=== PATIENT | female | born 1970 | race Hispanic/Latino ===

== ENCOUNTER 2018-09-13 10:42 | Emergency (ER) | payer OTHER, MEDICAID, SELFPAY ==
[2018-09-13 10:52] VITALS: BP 97/65; PULSE 91; RESP 15; TEMP 36.7; O2SAT 100; BMI 32.1
--- NOTE | 2018-09-13 11:23 | ED.SKABFB ---
HPI - Skin/Abscess/Foreign Bdy General Chief complaint: Skin/Abscess/Foreign Body Stated complaint: Swollen red patch on stomach Time Seen by Provider: 09/13/18 10:54 Source: patient Mode of arrival: ambulatory Limitations: no limitations History of Present Illness HPI narrative: Patient is a 47-year-old female who presents with abscess on her abdomen. She had 1 abscess which she said drainage immediately afterwards 2nd abscess has popped up. Extremely sensitive she cannot wear clothing over it. She has some body aches. This 1 is not draining as in the for 2-3 days. MD complaint: abscess/boil Related Data Previous Rx's Medication Instructions Recorded mupirocin 1 applictn TOP TID #15 gram 09/13/18 sulfamethoxazole-trimethoprim 1 tab PO BID #14 tab 09/13/18 [Bactrim DS] Allergies Allergy/AdvReac Type Severity Reaction Status Date / Time chocolate flavor Allergy Unknown Verified 09/13/18 10:52 [CHOCOLATE FLAVOR] adhesive tape [ADHESIVE TAPE] AdvReac Intermediate Verified 09/13/18 10:52 latex [LATEX] AdvReac Intermediate Verified 09/13/18 10:52 Review of Systems Review of Systems All systems reviewed & are unremarkable except as noted in HPI and below Constitutional Reports body ache(s), Denies chills, Denies fatigue and Denies fever(s) Cardiovascular Denies chest pain, Denies irregular heart rhythm, Denies lightheadedness, Denies palpitations, Denies dyspnea, Denies dyspnea on exertion and Denies orthopnea Respiratory Denies cough, Denies dyspnea, Denies dyspnea on exertion and Denies wheezing Gastrointestinal Gastrointestinal: Denies abdominal pain, Denies change in bowel habits, Denies diarrhea, Denies nausea and Denies vomiting Musculoskeletal Denies back pain, Denies muscle weakness, Denies numbness and Denies tingling Integumentary/Breasts Reports as per HPI, Reports erythema, Reports skin pain and Reports sores Neurologic Denies numbness and Denies tingling Endocrine Denies fatigue and Denies palpitations Allergic/Immunologic Denies wheezing PFSH Medical History Frequent UTI (Chronic) Heavy menstrual period (Chronic) History of frequent headaches (Chronic) Surgical History History of removal of cyst (Resolved) Anesthesia (Inactive) Status post delivery (~1989) Status post tubal ligation (~1994) Family History Father Age: 79 Cancer Hypertension Mother Age: 75 Cancer Hypertension High cholesterol Grandfather Cancer Grandmother Heart disease Social History Smoking Status: Never smoker Exam Initial Vital Signs Initial Vital Signs: Vital Signs Temperature 98.1 F 09/13/18 10:52 Pulse Rate 91 H 09/13/18 10:52 Respiratory Rate 15 09/13/18 10:52 Blood Pressure 97/65 09/13/18 10:52 Pulse Oximetry 100 09/13/18 10:52 GENERAL: Well-appearing, well-nourished and in no acute distress. CARDIOVASCULAR: peripheral pulses in tact, cap refill <2 sec RESPIRATORY: No respiratory distress, speaks in full sentences without difficulty EXTREMITIES: Normal range of motion, no clubbing or edema. Neurovascularly intact NEUROLOGICAL: Cranial nerves II through XII grossly intact. Normal gait and speech. SKIN: Abdomen does have induration 4 cm x 4 cm with some surrounding erythema. No gross drainage. I did bedside ultrasound myself do not see pocket for abscess. Course Vital Signs - 8 hr 09/13/18 10:52 09/13/18 11:51 Temperature 98.1 F 98.5 F Pulse Rate 91 H 92 H Respiratory Rate 15 20 Blood Pressure 97/65 Blood Pressure [Left Arm] 149/85 H Pulse Oximetry 100 100 Discharge Plan Departure Patient Disposition: Home Clinical Impression: Abscess of skin or subcutaneous tissue Discharge Date/Time: 09/13/18 12:07 Interventions: ED Discharge Assessment Last Done: 09/13/18 12:03 Instructions: DI for Incision and Drainage of a Skin Abscess, DI for Skin Abscess Activity Restrictions/Additional Instructions: *You have been diagnosed with skin abscess *What to do: Warm compresses, avoid irritation cover with a dressing if closing is bothersome *Continue to take medications as directed: FAXED TO [facility] [place] Ibuprofen 800 mg every 8 hr as needed for pain or fever Bactrim 1 tab twice a day for 7 days Mupirocin ointment apply to affected area 3 times a day *Follow up with your primary care provider in 2-3 days *Return to ER if you should have significantly worsening redness, fever or any new, worsening or concerning symptoms Prescriptions: New sulfamethoxazole-trimethoprim [Bactrim DS] 800-160 mg tablet 1 tab PO BID Qty: 14 RF: 0 mupirocin 2 % ointment 1 applictn TOP TID Qty: 15 RF: 0 Referrals: [facility] [Provider Group] Nico Little MD [Non-Staff] - Art Burrell MD [Non-Staff] - Krissy Davila DO [Non-Staff] -
[2018-09-13 11:51] VITALS: BP 149/85; PULSE 92; RESP 20; TEMP 36.9; O2SAT 100
== END 2018-09-13 12:07 | disposition home or self-care (01) ==
PROVIDERS: Emergency Provider Emergency Medicine
DX: L02.211 Cutaneous abscess of abdominal wall (principal)
CPT/HCPCS: 99282

== ENCOUNTER 2018-09-16 15:52 | Emergency (ER) | payer OTHER, MEDICAID, SELFPAY ==
[2018-09-16 16:04] VITALS: BP 146/90; PULSE 78; RESP 18; TEMP 36.8; O2SAT 98
--- NOTE | 2018-09-16 17:43 | ED_ITS ---
HPI - Skin/Abscess/Foreign Bdy General Chief complaint: Skin/Abscess/Foreign Body Stated complaint: ABSESS ON STOMACH Time Seen by Provider: 09/16/18 16:26 Source: patient and family Mode of arrival: ambulatory Limitations: no limitations History of Present Illness HPI narrative: 47-year-old nonsmoker presents with her significant other for re- evaluation of a spontaneously draining abscess on her anterior abdomen. She has had low-grade subjective fever but denies any chills. She denies nausea, vomiting or diarrhea. She was seen a few days ago and had evaluation and was discharged Bactrim as there is no suggestion of abscess at that point time. Since then the erythema has largely improved but the area of infection has come to ahead and began spontaneously draining earlier today. She denies any deep abdominal pain nor trouble with bowel movements. MD complaint: abscess/boil Onset (ago): day(s) Tetanus up to date: yes Location: generalized (Lower Abdominal wall) Severity: mild Quality: burning and aching Pain Consistency: constant Relieving factors: none Associated symptoms: fever Treatments prior to arrival: attempted to drain pus at home and Benadryl Related Data Previous Rx's Medication Instructions Recorded mupirocin 1 applictn TOP TID #15 gram 09/13/18 sulfamethoxazole-trimethoprim 1 tab PO BID #14 tab 09/13/18 [Bactrim DS] hydrocodone-acetaminophen 1 tab PO Q4-6H PRN #14 tab 09/16/18 sulfamethoxazole-trimethoprim 1 tab PO BID 5 Days #10 tab 09/16/18 [Bactrim DS] Allergies Allergy/AdvReac Type Severity Reaction Status Date / Time chocolate flavor Allergy Unknown Verified 09/13/18 10:52 [CHOCOLATE FLAVOR] adhesive tape [ADHESIVE TAPE] AdvReac Intermediate Verified 09/13/18 10:52 latex [LATEX] AdvReac Intermediate Verified 09/13/18 10:52 Review of Systems Review of Systems All systems reviewed & are unremarkable except as noted in HPI and below Constitutional Denies chills, Denies fever(s), Denies lethargy and Denies weakness Eyes Denies change in vision, Denies eye discharge, Denies irritation and Denies loss of vision ENT Ears, Nose, Mouth, and Throat: Denies change in voice, Denies neck pain and Denies sore throat Cardiovascular Denies chest pain, Denies irregular heart rhythm, Denies lightheadedness, Denies palpitations, Denies dyspnea, Denies dyspnea on exertion and Denies orthopnea Respiratory Denies cough, Denies dyspnea, Denies dyspnea on exertion and Denies wheezing Gastrointestinal Gastrointestinal: Denies abdominal pain, Denies change in bowel habits, Denies diarrhea, Denies nausea and Denies vomiting Genitourinary Denies hematuria, Denies flank pain, Denies urinary incontinence and Denies urinary urgency Musculoskeletal Denies neck pain Integumentary/Breasts Denies pruritus, Reports erythema, Denies rash, Reports sores and Denies wounds Neurologic Denies confusion, Denies loss of vision and Denies weakness Psychiatric Denies anxiety, Denies confusion, Denies depression, Denies homicidal ideation and Denies suicidal ideation Endocrine Denies palpitations Hematologic/Lymphatic Denies easy bruising Allergic/Immunologic Denies wheezing [facility] Medical History Frequent UTI (Chronic) Heavy menstrual period (Chronic) History of frequent headaches (Chronic) Surgical History History of removal of cyst (Resolved) Anesthesia (Inactive) Status post delivery (~1989) Status post tubal ligation (~1994) Family History Father Age: 80 Cancer Hypertension Mother Age: 76 Cancer Hypertension High cholesterol Grandfather Cancer Grandmother Heart disease Social History Smoking Status: Never smoker Exam Narrative Exam Narrative: GEN: AOx3 and in mild distress, complaining of pain in her anterior abdominal wall EYES: Pupils are equal, round, and reactive to light and accommodation. Extraoccular muscles are intact bilaterally. There is no subconjunctival hemorrhage or exudate. CHEST: Lungs are clear to auscultation bilaterally and free of wheezes, rales, or rhonchi. Heart rate is regular rhythm, there are no murmurs, clicks, rubs, or gallops. There is no chest wall tenderness. ABD: Abdomen is soft and nontender other than abscess which is described below. There is no guarding or rebound. Bowel sounds are normal in all 4 quadrants. There is no mass or organomegaly. EXT: Full painless ROM of all extremities with no loss of sensation or strength. SKIN: 3 x 3 cm area of induration with a central area of fluctuance and spontaneous drainage. Bedside ultrasound notes 1 small centrally located pocket of fluid with debris suggestive of abscess. Initial Vital Signs Initial Vital Signs: Vital Signs Temperature 98.2 F 09/16/18 16:04 Pulse Rate 78 09/16/18 16:04 Respiratory Rate 18 09/16/18 16:04 Blood Pressure 146/90 H 09/16/18 16:04 Pulse Oximetry 98 09/16/18 16:04 Procedures Abscess I/D Site: abdomen Local Anesthetic: lidocaine 1% and with epi Amount of anesthesia used (mL): 6 Technique: incised with #11 blade Amount of fluid expressed (mL): 5 Irrigation: No Packing used?: none Course Orders Ordered: Discontinued Medications Hydrocodone Bitart/Acetaminophen ([place] 5/325) 2 tab PO NOW ONE Stop: 09/16/18 18:19 Last Admin: 09/16/18 18:19 Dose: 2 tab Vital Signs - 8 hr 09/16/18 16:04 09/16/18 18:08 Temperature 98.2 F Pulse Rate 78 79 Respiratory Rate 18 14 Blood Pressure 146/90 H Blood Pressure [Right Arm] 141/87 H Pulse Oximetry 98 100 Discharge Plan Departure Patient Disposition: Home Clinical Impression: Abdominal wall abscess Discharge Date/Time: 09/16/18 18:37 Interventions: ED Discharge Assessment Last Done: 09/16/18 18:37 Instructions: Incision and Drainage of a Skin Abscess Activity Restrictions/Additional Instructions: *You have been diagnosed with [ incision and drainage of an abdominal wall abscess] *What to do: *Take medications as directed: your prescription for Bactrim has been extended by 5 days and electronically transmitted [facility] in [place] at your request *Follow up with your primary care provider in 2-3 days, call for an appointment. Let them know you were seen in the Emergency Department and that we ask that you be seen in follow up *Return to ER if you should have any new, worsening or concerning symptoms] Prescriptions: New sulfamethoxazole-trimethoprim [Bactrim DS] 800-160 mg tablet 1 tab PO BID 5 Days Qty: 10 RF: 0 hydrocodone-acetaminophen 5-325 mg tablet 1 tab PO Q4-6H PRN (Reason: pain) Qty: 14 RF: 0 No Action sulfamethoxazole-trimethoprim [Bactrim DS] 800-160 mg tablet 1 tab PO BID Qty: 14 RF: 0 mupirocin 2 % ointment 1 applictn TOP TID Qty: 15 RF: 0 Referrals: Leeann Dewitt DO [Physician] - Mili Campos MD [Physician] - Shena Del Valle MD [Physician] -
[2018-09-16 18:08] VITALS: BP 141/87; PULSE 79; RESP 14; O2SAT 100
[2018-09-16] MEDS: HYDROCODONE/ACET 5/325 TABLET 2 TAB PO (18:19)
== END 2018-09-16 18:37 | disposition home or self-care (01) ==
PROVIDERS: Emergency Provider Emergency Medicine
DX: L02.211 Cutaneous abscess of abdominal wall (principal)
CPT/HCPCS: 10060; 99282; 99283

== ENCOUNTER 2019-03-11 10:57 | Emergency (ER) | payer OTHER, MEDICAID, SELFPAY ==
[2019-03-11 11:02] VITALS: BP 175/108; PULSE 88; RESP 22; TEMP 36.9; O2SAT 99
--- NOTE | 2019-03-11 11:21 | DI.RAD.S_ITS ---
PROCEDURE: XR CHEST 2V INDICATIONS: cough, hx asthma TECHNIQUE: 2 views of the chest were acquired. COMPARISON: [facility], CHEST 2 VIEW, 06/08/2017, 23:00. [facility], CHEST 1 VIEW, 01/14/2017, 7:35. FINDINGS: Surgical changes and devices: None. Lungs and pleura: Lungs are clear. No pleural effusions or pneumothorax. Mediastinum: Mediastinal contours are normal. Heart size is normal. Bones and chest wall: No suspicious bony abnormalities. Soft tissues appear unremarkable. IMPRESSION: Clear lungs. Dictated by: Andrae Strange M.D. on 03/11/2019 at 10:42 Approved by: Andrae Strange M.D. on 03/11/2019 at 10:43
[2019-03-11] MEDS: PROPARACAINE 0.5% OPHTH SOL 1 DROPS EYE-RIGHT (11:39)
[2019-03-11] MEDS: KETOROLAC 60 MG/2 ML VIAL IM (11:39)
--- NOTE | 2019-03-11 11:40 | ED.EYEPROB ---
HPI - Eye Problem <RAHUL Roberto - Last Filed: 03/11/19 19:42> General Chief complaint: Eye Problems Stated complaint: states rt eye pressure pain extending to nose Time Seen by Provider: 03/11/19 11:09 Source: patient Mode of arrival: ambulatory Limitations: no limitations History of Present Illness HPI Narrative: The patient is a 48-year-old female nonsmoker with history of bronchitis, who presents with a chief complaint of right eye pain as well as face pain. the patient states that she started with a cough several days ago, which accelerated into pain across both of her sinuses, right starting on left. She states that it hurts to open her eye. She denies any visual difficulty, denies any blurry vision double vision haloing of lights. She denies any fever, but states she felt warm yesterday. Denies any nausea or vomiting or diarrhea. She states her cough is nonproductive and persistent. She denies any abdominal pain. She does wear contacts and is concerned that she has a scratch on her eye. Related Data Previous Rx's Medication Instructions Recorded mupirocin 1 applictn TOP TID #15 gram 09/13/18 sulfamethoxazole-trimethoprim 1 tab PO BID #14 tab 09/13/18 [Bactrim DS] hydrocodone-acetaminophen 1 tab PO Q4-6H PRN #14 tab 09/16/18 albuterol sulfate 2 puff INHALATION Q4-6H PRN #8.5 03/11/19 gram ciprofloxacin HCl 0.3 % OPHTHALMIC (EYE) TID 14 Days 03/11/19 #3.5 gram Allergies Allergy/AdvReac Type Severity Reaction Status Date / Time chocolate flavor Allergy Unknown Verified 09/13/18 10:52 [CHOCOLATE FLAVOR] adhesive tape [ADHESIVE TAPE] AdvReac Intermediate Verified 09/13/18 10:52 latex [LATEX] AdvReac Intermediate Verified 09/13/18 10:52 Review of Systems <RAHUL Roberto - Last Filed: 03/11/19 19:42> Review of Systems GENERAL: Denies chills, fatigue, malaise, fever, sweats. HEENT: See HPI RESPIRATORY: Denies dyspnea, cough, wheezing, hemoptysis, sputum. CARDIOVASCULAR: Denies chest pain, palpitations, orthopnea, edema, GASTROINTESTINAL: Denies nausea, vomiting, abdominal pain, diarrhea, constipation, melena. : Denies dysuria, frequency, incontinence, hematuria, urinary retention. MUSCULOSKELETAL: denies weakness, joint pain, or bony pain SKIN: Denies rash, skin lesions, or other NEUROLOGIC: Denies weakness, headache, numbness, change in speech, confusion, seizures, incoordination. PSYCHIATRIC: No concerning psychosocial issues. 12 point review of systems is negative except for those stated above PFSH <RAHUL Roberto - Last Filed: 03/11/19 19:42> Medical History Frequent UTI (Chronic) Heavy menstrual period (Chronic) History of frequent headaches (Chronic) Surgical History History of removal of cyst (Resolved) Anesthesia (Inactive) Status post delivery (~1989) Status post tubal ligation (~1994) Family History Father Age: 80 Cancer Hypertension Mother Age: 76 Cancer Hypertension High cholesterol Grandfather Cancer Grandmother Heart disease Social History Smoking Status: Never smoker Family History Father Age: 80 Cancer Hypertension Mother Age: 76 Cancer Hypertension High cholesterol Grandfather Cancer Grandmother Heart disease Social History Smoking Status: Never smoker Exam <RAHUL Roberto - Last Filed: 03/11/19 19:42> Narrative Exam Narrative: GENERAL: This is a well-nourished, well-developed patient, appears uncomfortable HEAD: Atraumatic. Normocephalic. No temporal or scalp tenderness. EYES: Pupils equal round and reactive. Extraocular motions intact. No scleral icterus. Right eye injection with tearing noted. Erythema noted. No erythema extending from right eye. Wilfred-Pen pressure on right eye 25, 24 on left eye. Small corneal abrasion noted on fluorescein exam. ENT: Nose without bleeding, purulent drainage or septal hematoma. Throat without erythema, tonsillar hypertrophy or exudate. Uvula midline. Airway patent. NECK: Trachea midline. No JVD or lymphadenopathy. Supple, nontender, no meningeal signs. CARDIOVASCULAR: Regular rate and rhythm RESPIRATORY: Clear to auscultation. Breath sounds equal bilaterally. No wheezes, rales, or rhonchi. Dry cough on exam GASTROINTESTINAL: Abdomen soft, non-tender, nondistended. No hepato-splenomegaly, or palpable masses. No guarding. EXTREMITIES: No clubbing, cyanosis, or edema. No joint tenderness, effusion, or edema noted. BACK: Nontender without deformity or crepitance. No flank tenderness. NEURO: AOx3. SKIN: No rash or erythema. Initial Vital Signs Initial Vital Signs: Vital Signs Temperature 98.5 F 03/11/19 11:02 Pulse Rate 88 03/11/19 11:02 Respiratory Rate 22 03/11/19 11:02 Blood Pressure 175/108 H 03/11/19 11:02 Pulse Oximetry 99 03/11/19 11:02 <Jayant Cooper DO - Last Filed: 03/12/19 08:24> Initial Vital Signs Initial Vital Signs: Vital Signs Temperature 98.5 F 03/11/19 11:02 Pulse Rate 88 03/11/19 11:02 Respiratory Rate 22 03/11/19 11:02 Blood Pressure 175/108 H 03/11/19 11:02 Pulse Oximetry 99 03/11/19 11:02 Course <JEFFREY Roberto-CANDACE - Last Filed: 03/11/19 19:42> Orders Ordered: Discontinued Medications Ketorolac Tromethamine (Toradol) 60 mg IM NOW ONE Stop: 03/11/19 11:22 Last Admin: 03/11/19 11:39 Dose: 60 mg Proparacaine HCl (Parcaine 0.5% Ophth Lis) 1 drops EYE-RIGHT NOW ONE Stop: 03/11/19 11:22 Last Admin: 03/11/19 11:39 Dose: 1 drop Vital Signs - 8 hr 03/11/19 13:04 Pulse Rate 75 Respiratory Rate 18 Blood Pressure 159/79 H Pulse Oximetry 98 <Jayant Cooper DO - Last Filed: 03/12/19 08:24> Orders Ordered: Discontinued Medications Ketorolac Tromethamine (Toradol) 60 mg IM NOW ONE Stop: 03/11/19 11:22 Last Admin: 03/11/19 11:39 Dose: 60 mg Proparacaine HCl (Parcaine 0.5% Ophth Lis) 1 drops EYE-RIGHT NOW ONE Stop: 03/11/19 11:22 Last Admin: 03/11/19 11:39 Dose: 1 drop Vital Signs - 8 hr 03/11/19 13:04 Pulse Rate 75 Respiratory Rate 18 Blood Pressure 159/79 H Pulse Oximetry 98 MDM - Eye Problem <RAHUL Roberto - Last Filed: 03/11/19 19:42> Imaging Data Chest x-ray: Radiologist's impression: [address] [address] XRay Report Signed Patient: Joycelyn Dela Cruz JAR#: [id number] : 1970Acct:[id number] Age/Sex: 48 / FDate of Service: 03/11/19 Loc: ED Accession Number: [id number] Procedure: XR chest 2V Ordering Provider: Sola Solorzano PROCEDURE: XR CHEST 2V INDICATIONS: cough, hx asthma TECHNIQUE: 2 views of the chest were acquired. COMPARISON: [facility], CHEST 2 VIEW, 06/08/2017, 23:00. [facility], CHEST 1 VIEW, 01/14/2017, 7:35. FINDINGS: Surgical changes and devices: None. Lungs and pleura: Lungs are clear. No pleural effusions or pneumothorax. Mediastinum: Mediastinal contours are normal. Heart size is normal. Bones and chest wall: No suspicious bony abnormalities. Soft tissues appear unremarkable. IMPRESSION: Clear lungs. Dictated by: Andrae Strange M.D. on 03/11/2019 at 10:42 Approved by: Andrae Strange M.D. on 03/11/2019 at 10:43 [facility] Narrative Medical decision making narrative: The patient is a 40-year-old female who presents with chief complaint of right eye pain and drainage. She also complains of a cough and is a negative chest x-ray. Her visual acuity is within normal limits. Her pressure is within normal limits. Given the corneal abrasion on her exam, I will treat her with Cipro. Encouraged to follow up with her PCP as well as her eye provider. Patient has no questions or concerns upon discharge. Discussed being re-evaluated immediately if notice taking any visual deficits. No questions or concerns upon discharge. Discharge Plan Departure Patient Disposition: Home Clinical Impression: Corneal abrasion Qualifiers: Encounter type: initial encounter Laterality: right Qualified Code(s): S05.01XA - Injury of conjunctiva and corneal abrasion without foreign body, right eye, initial encounter Discharge Date/Time: 03/11/19 13:04 Interventions: ED Discharge Assessment Last Done: 03/11/19 13:04 Instructions: DI for Corneal Abrasion Activity Restrictions/Additional Instructions: Your vision is good today. Please monitor this and be evaluated if you have any concerns about your vision. Given the abrasion on your exam, I am giving a prescription for an antibiotic. Please follow up with primary care provider as well as your eye provider. Please come back to emergency department for any acute concerns such as visual deficit etc. Please continue [id number] medications as needed and able. Please avoid ibuprofen for the next 8 hours as we gave you IM Toradol Prescriptions: New ciprofloxacin HCl 0.3 % ointment 0.3 % ophthalmic (eye) TID 14 Days Qty: 3.5 RF: 0 albuterol sulfate 90 mcg/actuation HFA aerosol inhaler 2 puff INHALATION Q4-6H PRN (Reason: shortness of breath or wheezing) Qty: 8.5 RF: 0 No Action hydrocodone-acetaminophen 5-325 mg tablet 1 tab PO Q4-6H PRN (Reason: pain) Qty: 14 RF: 0 sulfamethoxazole-trimethoprim [Bactrim DS] 800-160 mg tablet 1 tab PO BID Qty: 14 RF: 0 mupirocin 2 % ointment 1 applictn TOP TID Qty: 15 RF: 0 <Jayant Cooper, DO - Last Filed: 03/12/19 08:24> Cosign ED Attending Parker Attestation: I was immediately available in the department for consultation. Documentation has been reviewed. I agree with assessment and plan.
--- NOTE | 2019-03-11 11:44 | ED_ITS ---
HPI - Eye Problem <RAHLU Roberto - Last Filed: 03/11/19 19:42> General Chief complaint: Eye Problems Stated complaint: states rt eye pressure pain extending to nose Time Seen by Provider: 03/11/19 11:09 Source: patient Mode of arrival: ambulatory Limitations: no limitations History of Present Illness HPI Narrative: The patient is a 48-year-old female nonsmoker with history of bronchitis, who presents with a chief complaint of right eye pain as well as face pain. the patient states that she started with a cough several days ago, which accelerated into pain across both of her sinuses, right starting on left. She states that it hurts to open her eye. She denies any visual difficulty, denies any blurry vision double vision haloing of lights. She denies any fever, but states she felt warm yesterday. Denies any nausea or vomiting or diarrhea. She states her cough is nonproductive and persistent. She denies any abdominal pain. She does wear contacts and is concerned that she has a scratch on her eye. Related Data Previous Rx's Medication Instructions Recorded mupirocin 1 applictn TOP TID #15 gram 09/13/18 sulfamethoxazole-trimethoprim 1 tab PO BID #14 tab 09/13/18 [Bactrim DS] hydrocodone-acetaminophen 1 tab PO Q4-6H PRN #14 tab 09/16/18 albuterol sulfate 2 puff INHALATION Q4-6H PRN #8.5 03/11/19 gram ciprofloxacin HCl 0.3 % OPHTHALMIC (EYE) TID 14 Days 03/11/19 #3.5 gram Allergies Allergy/AdvReac Type Severity Reaction Status Date / Time chocolate flavor Allergy Unknown Verified 09/13/18 10:52 [CHOCOLATE FLAVOR] adhesive tape [ADHESIVE TAPE] AdvReac Intermediate Verified 09/13/18 10:52 latex [LATEX] AdvReac Intermediate Verified 09/13/18 10:52 Review of Systems <RAHUL Roberto - Last Filed: 03/11/19 19:42> Review of Systems GENERAL: Denies chills, fatigue, malaise, fever, sweats. HEENT: See HPI RESPIRATORY: Denies dyspnea, cough, wheezing, hemoptysis, sputum. CARDIOVASCULAR: Denies chest pain, palpitations, orthopnea, edema, GASTROINTESTINAL: Denies nausea, vomiting, abdominal pain, diarrhea, constipation, melena. : Denies dysuria, frequency, incontinence, hematuria, urinary retention. MUSCULOSKELETAL: denies weakness, joint pain, or bony pain SKIN: Denies rash, skin lesions, or other NEUROLOGIC: Denies weakness, headache, numbness, change in speech, confusion, seizures, incoordination. PSYCHIATRIC: No concerning psychosocial issues. 12 point review of systems is negative except for those stated above PFSH <RAHUL Roberto - Last Filed: 03/11/19 19:42> Medical History Frequent UTI (Chronic) Heavy menstrual period (Chronic) History of frequent headaches (Chronic) Surgical History History of removal of cyst (Resolved) Anesthesia (Inactive) Status post delivery (~1989) Status post tubal ligation (~1994) Family History Father Age: 80 Cancer Hypertension Mother Age: 76 Cancer Hypertension High cholesterol Grandfather Cancer Grandmother Heart disease Social History Smoking Status: Never smoker Family History Father Age: 80 Cancer Hypertension Mother Age: 76 Cancer Hypertension High cholesterol Grandfather Cancer Grandmother Heart disease Social History Smoking Status: Never smoker Exam <RAHUL Roberto - Last Filed: 03/11/19 19:42> Narrative Exam Narrative: GENERAL: This is a well-nourished, well-developed patient, appears uncomfortable HEAD: Atraumatic. Normocephalic. No temporal or scalp tenderness. EYES: Pupils equal round and reactive. Extraocular motions intact. No scleral icterus. Right eye injection with tearing noted. Erythema noted. No erythema extending from right eye. Wilfred-Pen pressure on right eye 25, 24 on left eye. Small corneal abrasion noted on fluorescein exam. ENT: Nose without bleeding, purulent drainage or septal hematoma. Throat without erythema, tonsillar hypertrophy or exudate. Uvula midline. Airway patent. NECK: Trachea midline. No JVD or lymphadenopathy. Supple, nontender, no meningeal signs. CARDIOVASCULAR: Regular rate and rhythm RESPIRATORY: Clear to auscultation. Breath sounds equal bilaterally. No wheezes, rales, or rhonchi. Dry cough on exam GASTROINTESTINAL: Abdomen soft, non-tender, nondistended. No hepato- splenomegaly, or palpable masses. No guarding. EXTREMITIES: No clubbing, cyanosis, or edema. No joint tenderness, effusion, or edema noted. BACK: Nontender without deformity or crepitance. No flank tenderness. NEURO: AOx3. SKIN: No rash or erythema. Initial Vital Signs Initial Vital Signs: Vital Signs Temperature 98.5 F 03/11/19 11:02 Pulse Rate 88 03/11/19 11:02 Respiratory Rate 22 03/11/19 11:02 Blood Pressure 175/108 H 03/11/19 11:02 Pulse Oximetry 99 03/11/19 11:02 <Jayant Cooper DO - Last Filed: 03/12/19 08:24> Initial Vital Signs Initial Vital Signs: Vital Signs Temperature 98.5 F 03/11/19 11:02 Pulse Rate 88 03/11/19 11:02 Respiratory Rate 22 03/11/19 11:02 Blood Pressure 175/108 H 03/11/19 11:02 Pulse Oximetry 99 03/11/19 11:02 Course <JEFFREY Roberto-CANDACE - Last Filed: 03/11/19 19:42> Orders Ordered: Discontinued Medications Ketorolac Tromethamine (Toradol) 60 mg IM NOW ONE Stop: 03/11/19 11:22 Last Admin: 03/11/19 11:39 Dose: 60 mg Proparacaine HCl (Parcaine 0.5% Ophth Lis) 1 drops EYE-RIGHT NOW ONE Stop: 03/11/19 11:22 Last Admin: 03/11/19 11:39 Dose: 1 drop Vital Signs - 8 hr 03/11/19 13:04 Pulse Rate 75 Respiratory Rate 18 Blood Pressure 159/79 H Pulse Oximetry 98 <Jayant Cooper DO - Last Filed: 03/12/19 08:24> Orders Ordered: Discontinued Medications Ketorolac Tromethamine (Toradol) 60 mg IM NOW ONE Stop: 03/11/19 11:22 Last Admin: 03/11/19 11:39 Dose: 60 mg Proparacaine HCl (Parcaine 0.5% Ophth Lis) 1 drops EYE-RIGHT NOW ONE Stop: 03/11/19 11:22 Last Admin: 03/11/19 11:39 Dose: 1 drop Vital Signs - 8 hr 03/11/19 13:04 Pulse Rate 75 Respiratory Rate 18 Blood Pressure 159/79 H Pulse Oximetry 98 MDM - Eye Problem <RAHUL Roberto - Last Filed: 03/11/19 19:42> Imaging Data Chest x-ray: Radiologist's impression: [address] [address] XRay Report Signed Patient: Joycelyn Dela Cruz JAR#: [id number] : 1970Acct:[id number] Age/Sex: 48 / FDate of Service: 03/11/19 Loc: ED Accession Number: [id number] Procedure: XR chest 2V Ordering Provider: Sola Solorzano PROCEDURE: XR CHEST 2V INDICATIONS: cough, hx asthma TECHNIQUE: 2 views of the chest were acquired. COMPARISON: [facility], CHEST 2 VIEW, 06/08/2017, 23:00. [facility], CHEST 1 VIEW, 01/14/2017, 7:35. FINDINGS: Surgical changes and devices: None. Lungs and pleura: Lungs are clear. No pleural effusions or pneumothorax. Mediastinum: Mediastinal contours are normal. Heart size is normal. Bones and chest wall: No suspicious bony abnormalities. Soft tissues appear unremarkable. IMPRESSION: Clear lungs. Dictated by: Andrae Strange M.D. on 03/11/2019 at 10:42 Approved by: Andrae Strange M.D. on 03/11/2019 at 10:43 [facility] Narrative Medical decision making narrative: The patient is a 40-year-old female who presents with chief complaint of right eye pain and drainage. She also complains of a cough and is a negative chest x-ray. Her visual acuity is within normal limits. Her pressure is within normal limits. Given the corneal abrasion on her exam, I will treat her with Cipro. Encouraged to follow up with her PCP as well as her eye provider. Patient has no questions or concerns upon discharge. Discussed being re-evaluated immediately if notice taking any visual deficits. No questions or concerns upon discharge. Discharge Plan Departure Patient Disposition: Home Clinical Impression: Corneal abrasion Qualifiers: Encounter type: initial encounter Laterality: right Qualified Code(s): S05.01XA - Injury of conjunctiva and corneal abrasion without foreign body, right eye, initial encounter Discharge Date/Time: 03/11/19 13:04 Interventions: ED Discharge Assessment Last Done: 03/11/19 13:04 Instructions: DI for Corneal Abrasion Activity Restrictions/Additional Instructions: Your vision is good today. Please monitor this and be evaluated if you have any concerns about your vision. Given the abrasion on your exam, I am giving a prescription for an antibiotic. Please follow up with primary care provider as well as your eye provider. Please come back to emergency department for any acute concerns such as visual deficit etc. Please continue [id number] medications as needed and able. Please avoid ibuprofen for the next 8 hours as we gave you IM Toradol Prescriptions: New ciprofloxacin HCl 0.3 % ointment 0.3 % ophthalmic (eye) TID 14 Days Qty: 3.5 RF: 0 albuterol sulfate 90 mcg/actuation HFA aerosol inhaler 2 puff INHALATION Q4-6H PRN (Reason: shortness of breath or wheezing) Qty: 8.5 RF: 0 No Action hydrocodone-acetaminophen 5-325 mg tablet 1 tab PO Q4-6H PRN (Reason: pain) Qty: 14 RF: 0 sulfamethoxazole-trimethoprim [Bactrim DS] 800-160 mg tablet 1 tab PO BID Qty: 14 RF: 0 mupirocin 2 % ointment 1 applictn TOP TID Qty: 15 RF: 0 <Jayant Cooper, DO - Last Filed: 03/12/19 08:24> Cosign ED Attending Parker Attestation: I was immediately available in the department for consultation. Documentation has been reviewed. I agree with assessment and plan.
[2019-03-11 13:04] VITALS: BP 159/79; PULSE 75; RESP 18; O2SAT 98
== END 2019-03-11 13:04 | disposition home or self-care (01) ==
PROVIDERS: Emergency Provider Nurse Practitioner Family
DX: S05.01XA Injury of conjunctiva and corneal abrasion without foreign body, right eye, initial encounter (principal)
CPT/HCPCS: 71046; 96372; 99283; J1885

== ENCOUNTER 2019-12-07 23:40 | Emergency (ER) | payer OTHER, MEDICAID, SELFPAY ==
[2019-12-07 23:43] VITALS: BP 160/108; PULSE 80; RESP 18; TEMP 36.4; O2SAT 98
--- NOTE | 2019-12-08 00:11 | ED_ITS ---
HPI - URI/Sore Throat General Chief Complaint: Upper Respiratory Symptoms Stated Complaint: both ears plugged/sore throat Time Seen by Provider: 12/07/19 23:41 Source: patient Mode of arrival: Ambulatory Limitations: no limitations History of Present Illness HPI Narrative: 48-year-old female nonsmoker with noncontributory medical history presents with a chief complaint runny nose, nasal congestion, sore throat and bilateral ear pain with some sneezing for the past few days. She has not taken much in the way of medications. She denies any fever chills nor any cough productive of sputum. She denies chest pain or shortness of breath. She denies any nausea, vomiting or diarrhea. Related Data Previous Rx's Medication Instructions Recorded mupirocin 1 applictn TOP TID #15 gram 09/13/18 sulfamethoxazole-trimethoprim 1 tab PO BID #14 tab 09/13/18 [Bactrim DS] hydrocodone-acetaminophen 1 tab PO Q4-6H PRN #14 tab 09/16/18 albuterol sulfate 2 puff INHALATION Q4-6H PRN #8.5 03/11/19 gram Allergies Allergy/AdvReac Type Severity Reaction Status Date / Time chocolate flavor Allergy Unknown Verified 09/13/18 10:52 [CHOCOLATE FLAVOR] adhesive tape [ADHESIVE TAPE] AdvReac Intermediate Verified 09/13/18 10:52 latex [LATEX] AdvReac Intermediate Verified 09/13/18 10:52 Review of Systems Constitutional Constitutional: Denies chills, Denies fatigue, Denies fever(s), Denies frequent falls, Denies lethargy and Denies weakness Eyes Eyes: Denies change in vision, Denies eye discharge, Denies irritation and Denies loss of vision ENT Ears, Nose, Mouth, and Throat: Denies change in voice, Denies dizziness, Reports otalgia, Reports nasal congestion, Denies neck pain, Reports sore throat and Denies throat swelling Cardiovascular Cardiovascular: Denies chest pain, Denies irregular heart rhythm, Denies lightheadedness, Denies palpitations, Denies dyspnea, Denies dyspnea on exertion and Denies orthopnea Respiratory Respiratory: Reports cough, Denies dyspnea, Denies dyspnea on exertion and Denies wheezing Gastrointestinal Gastrointestinal: Denies abdominal pain, Denies change in bowel habits, Denies diarrhea, Denies nausea and Denies vomiting Genitourinary Genitourinary: Denies hematuria, Denies flank pain, Denies urinary incontinence and Denies urinary urgency Musculoskeletal Musculoskeletal: Denies back pain, Denies muscle weakness, Denies neck pain, Denies numbness and Denies tingling Integumentary/Breasts Skin/Breast: Denies pruritus, Denies erythema, Denies rash and Denies wounds Neurologic Neurologic: Denies behavioral changes, Denies confusion, Denies dizziness, Denies frequent falls, Denies loss of vision, Denies numbness, Denies tingling and Denies weakness Psychiatric Psychiatric: Denies anxiety, Denies behavioral changes, Denies confusion, Denies depression, Denies homicidal ideation and Denies suicidal ideation Endocrine Endocrine: Denies fatigue, Denies flushing and Denies palpitations Hematologic/Lymphatic Hematologic/Lymphatic: Denies easy bruising Allergic/Immunologic Allergic/Immunologic: Denies urticaria, Denies throat swelling and Denies wheezing Patient History Medical History Frequent UTI (Chronic) Heavy menstrual period (Chronic) History of frequent headaches (Chronic) Surgical History Anesthesia (Inactive) History of removal of cyst (Resolved) Status post delivery (~1989) Status post tubal ligation (~1994) Family History Father Age: 81 Cancer Hypertension Mother Age: 77 Cancer Hypertension High cholesterol Grandfather Cancer Grandmother Heart disease Social History Smoking Status: Never smoker Smoking Status: Never smoker Substance Use Type: does not use Exam Narrative Exam Narrative: GENERAL: [48] year old patient appears stated age. Well- nourished, well-developed patient, in mild distress. HEAD: Atraumatic. Normocephalic. EYES: Pupils equal round and reactive. Extraocular motions intact. No scleral icterus. No injection or drainage. ENT: Clear nasal drainage bilaterally. Throat without erythema, tonsillar hypertrophy or exudate though there is some postnasal drip. Airway patent. NECK: Trachea midline. Non tender CARDIOVASCULAR: Regular rate and rhythm without murmurs, gallops, or rubs. RESPIRATORY: Clear to auscultation. Breath sounds equal bilaterally. No wheezes, rales, or rhonchi. GASTROINTESTINAL: Abdomen soft, non-tender, nondistended. EXTREMITIES: No edema or joint tenderness. BACK: Nontender without deformity or crepitance. No flank tenderness. NEURO: AOx3. SKIN: No rash or erythema of visible areas Initial Vital Signs Initial Vital Signs: Vital Signs Temperature 97.6 F 12/07/19 23:43 Pulse Rate 80 12/07/19 23:43 Respiratory Rate 18 12/07/19 23:43 Blood Pressure 160/108 H 12/07/19 23:43 Pulse Oximetry 98 12/07/19 23:43 Course Orders Ordered: ED Orders 12/08/19 00:00 Influenza A & B (PCR) Stat Vital Signs Vital signs: Vital Signs - 8 hr 12/07/19 23:43 12/08/19 01:02 Temperature 97.6 F Pulse Rate 80 88 Respiratory Rate 18 15 Blood Pressure 160/108 H 155/104 H Pulse Oximetry 98 99 MDM - URI/Sore Throat Lab Data Labs: Lab Results 12/08/19 12/08/19 Range/Units 00:00 00:00 Influenza A (RT-PCR) Flu a negative (NEGATIVE) Influenza B (RT-PCR) Flu b negative (NEGATIVE) Group A Strep (PCR) Cancelled Point of Care Testing Rapid Strep A Negative Discharge Plan Departure Patient Disposition: Home Clinical Impression: URI (upper respiratory infection) Qualifiers: URI type: unspecified viral URI Qualified Code(s): J06.9 - Acute upper respiratory infection, unspecified Discharge Date/Time: 12/08/19 01:03 Instructions: DI for Viral Upper Respiratory Infection -- Adult Activity Restrictions/Additional Instructions: *You have been diagnosed with [acute viral upper respiratory infection] *What to do: *Take medications as directed: [id number] medications with antihistamines and decongestants *Follow up with your primary care provider in 2-3 days, call for an appointment. Let them know you were seen in the Emergency Department and that we ask that you be seen in follow up *Return to ER if you should have any new, worsening or concerning symptoms Prescriptions: No Action hydrocodone-acetaminophen 5-325 mg tablet 1 tab PO Q4-6H PRN (Reason: pain) Qty: 14 RF: 0 sulfamethoxazole-trimethoprim [Bactrim DS] 800-160 mg tablet 1 tab PO BID Qty: 14 RF: 0 mupirocin 2 % ointment 1 applictn TOP TID Qty: 15 RF: 0 albuterol sulfate 90 mcg/actuation HFA aerosol inhaler 2 puff INHALATION Q4-6H PRN (Reason: shortness of breath or wheezing) Qty: 8.5 RF: 0
[2019-12-08 00:39] LABS: Influenza A - CEPHEID Flu A NEGATIVE (NEGATIVE); Influenza B - CEPHEID Flu B NEGATIVE (NEGATIVE)
[2019-12-08 01:02] VITALS: BP 155/104; PULSE 88; RESP 15; O2SAT 99
== END 2019-12-08 01:03 | disposition home or self-care (01) ==
PROVIDERS: Emergency Provider Emergency Medicine
DX: J06.9 Acute upper respiratory infection, unspecified (principal)
CPT/HCPCS: 87502; 87880; 99281; 99282

== ENCOUNTER 2021-02-06 12:34 | Emergency (ER) | payer OTHER, MEDICAID, SELFPAY ==
[2021-02-06 12:36] VITALS: BP 200/99; PULSE 87; RESP 15; TEMP 36.8; O2SAT 99; BMI 34.0
[2021-02-06 14:34] VITALS: BP 180/96; PULSE 77; PULSE 79; RESP 16; O2SAT 99
--- NOTE | 2021-02-06 14:35 | PC.NURSE ---
Pt states she has been stressed out for the past week and been having a sinus headache. Pt took her BP today and it was 200/143 at home. No hx of HTN. No CP or SOB
--- NOTE | 2021-02-06 14:43 | ED.GENADULT ---
HPI - General Adult General Chief complaint: Hypertension Stated complaint: high blood pressure Time Seen by Provider: 02/06/21 14:18 Source: patient Mode of arrival: Ambulatory Limitations: no limitations History of Present Illness HPI narrative: Patient is a 50-year-old female without diagnosis of hypertension who is here for evaluation 1 month of pressure in her head and pressure behind her eyes and nausea and some abdominal discomfort. She states that the symptoms have been consistent over the past month and earlier today she took her blood pressure because of the symptoms and it was elevated. 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 who told her to come to the emergency department for evaluation Related Data Previous Rx's Medication Instructions Recorded mupirocin 1 applictn TOP TID #15 gram 09/13/18 sulfamethoxazole-trimethoprim 1 tab PO BID #14 tab 09/13/18 [Bactrim DS] hydrocodone-acetaminophen 1 tab PO Q4-6H PRN #14 tab 09/16/18 albuterol sulfate 2 puff INHALATION Q4-6H PRN #8.5 03/11/19 gram lisinopril 10 mg PO DAILY #30 tab 02/06/21 Allergies Allergy/AdvReac Type Severity Reaction Status Date / Time chocolate flavor Allergy Unknown Verified 02/06/21 12:37 [CHOCOLATE FLAVOR] adhesive tape [ADHESIVE TAPE] AdvReac Intermediate Verified 02/06/21 12:37 latex [LATEX] AdvReac Intermediate Verified 02/06/21 12:37 Review of Systems Constitutional Constitutional: Denies headache(s) Eyes Eyes: Denies change in vision Comments: Pain behind his ENT Ears, Nose, Mouth, and Throat: Denies headache(s) and Denies sore throat Cardiovascular Cardiovascular: Reports dyspnea Respiratory Respiratory: Reports dyspnea Gastrointestinal Gastrointestinal: Denies change in bowel habits Musculoskeletal Comments: Lower extremity swelling Integumentary/Breasts Skin/Breast: Denies rash Neurologic Neurologic: Denies headache(s) Patient History Medical History Frequent UTI Heavy menstrual period History of frequent headaches Surgical History Anesthesia History of removal of cyst Status post delivery (~1989) Status post tubal ligation (~1994) Family History Father Age: 82 Cancer Hypertension Mother Age: 78 Cancer Hypertension High cholesterol Grandfather Cancer Grandmother Heart disease Social History Smoking Status: Never smoker Smoking Status: Never smoker alcohol intake frequency: holidays/special occasions only Substance Use Type: does not use Exam Initial Vital Signs Initial Vital Signs: Vital Signs Temperature 98.2 F 02/06/21 12:36 Pulse Rate 87 02/06/21 12:36 Respiratory Rate 15 02/06/21 12:36 Blood Pressure 200/99 H 02/06/21 12:36 Pulse Oximetry 99 02/06/21 12:36 Const General: cooperative and comfortable Limitations: mental status not altered HENMT Head: normal to inspection and normocephalic Nose: external nose normal Eyes General: appearance normal, both eyes and all related structures Resp Effort & Inspection: normal respiratory effort Auscultation: clear to auscultation bilaterally Cardio Rate: regular rate Rhythm: regular rhythm GI Inspection: non-distended Palpation: soft Skin Lesions: no lesions Rashes: no rashes Neuro General: patient alert, patient awake and patient oriented x3 Cranial Nerves: CN's II-XI intact bilaterally Cognition: normal cognition Speech: speech normal Extrem General: normal to inspection and capillary refill normal Psych Appearance: grossly normal and well kempt Course Orders Ordered: ED Orders 02/06/21 12:46 EKG-12 Lead Stat Discontinued Medications Lisinopril (Lisinopril 10 Mg Tablet) 10 mg PO NOW ONE Stop: 02/06/21 14:46 Last Admin: 02/06/21 14:52 Dose: 10 mg Documented by: FRANCY Vital Signs Vital signs: Vital Signs - 8 hr 02/06/21 12:36 02/06/21 14:34 Temperature 98.2 F Pulse Rate 87 79 Respiratory Rate 15 16 Blood Pressure 200/99 H 180/96 H Pulse Oximetry 99 99 Medical Decision Making ECG Data Attestation: I personally reviewed and interpreted this ECG as follows: Prior ECG tracings: not available for review Interpretation: Sinus rhythm Ventricular rate is 76 LVH Normal QRS Normal QTC No ST T wave changes MDM Narrative Medical decision making narrative: I have low suspicion for ACS. Unsure whether not the symptoms that she has been having for the past month a related to her elevated blood pressure or if her elevated blood pressures related to the symptoms. She is hypertensive here and I suspect that at baseline she is hypertensive so will start her on low-dose lisinopril. Low suspicion for stroke/TIA. I feel we can hold on radiologic studies. She was given instructions on how to take her blood pressure at home. She is given return precautions and follow-up instructions she expressed understanding and agreement. Discharge Plan Departure Patient Disposition: Home Clinical Impression: Hypertension Instructions: DI for High Blood Pressure Activity Restrictions/Additional Instructions: I recommend that you start taking the lisinopril for your blood pressure like we discussed. Take your blood pressure at home like we discussed. Contact your primary provider for follow-up. Return to the emergency department for any new or worsening symptoms Prescriptions: New lisinopril 10 mg tablet 10 mg PO DAILY Qty: 30 RF: 0 No Action hydrocodone-acetaminophen 5-325 mg tablet 1 tab PO Q4-6H PRN (Reason: pain) Qty: 14 RF: 0 sulfamethoxazole-trimethoprim [Bactrim DS] 800-160 mg tablet 1 tab PO BID Qty: 14 RF: 0 mupirocin 2 % ointment 1 applictn TOP TID Qty: 15 RF: 0 albuterol sulfate 90 mcg/actuation HFA aerosol inhaler 2 puff INHALATION Q4-6H PRN (Reason: shortness of breath or wheezing) Qty: 8.5 RF: 0 Referrals: Hardeep Longoria [place] [Primary Care Provider] -
[2021-02-06] MEDS: lisinopriL 10 MG TABLET PO (14:52)
== END 2021-02-06 15:23 | disposition home or self-care (01) ==
PROVIDERS: Emergency Provider Emergency Medicine; PCP Naprapath
DX: I10 Essential (primary) hypertension (principal)
CPT/HCPCS: 93005; 99283

== ENCOUNTER 2021-03-25 17:37 | Inpatient (IN) | payer OTHER, MEDICAID, SELFPAY ==
[2021-03-25] VITALS (14 sets, daily range): BP systolic 111–139; BP diastolic 65–92; PULSE 117–136; RESP 16–44; TEMP 38.2; O2SAT 94–98; BMI 33.8
--- NOTE | 2021-03-25 17:57 | DI.RAD.S_ITS ---
PROCEDURE: XR CHEST 1V INDICATIONS: flu-like symptoms TECHNIQUE: One view of the chest was acquired. COMPARISON: [facility], CR, XR CHEST 2V, 03/11/2019, 11:32. FINDINGS: Surgical changes and devices: None. Lungs and pleura: Bilateral basilar as well as retrocardiac opacities. Mediastinum: Mediastinal contours appear normal. Heart size is enlarged. Bones and chest wall: No suspicious bony lesions. Overlying soft tissues appear unremarkable. IMPRESSION: Bibasilar retrocardiac opacities most suspicious for pneumonia. Recommend interval follow up after appropriate therapy to document resolution exclude presence of underlying mass lesion. Dictated by: Anitra Chavez M.D. on 03/25/2021 at 18:30 Approved by: Anitra Chavez M.D. on 03/25/2021 at 18:31
--- NOTE | 2021-03-25 18:07 | ED_ITS ---
HPI - SOB/Dyspnea General Chief Complaint: Shortness of Breath/Dyspnea Stated Complaint: Difficulty breathing, covid + Time Seen by Provider: 03/25/21 18:06 Source: patient and EMS Mode of arrival: EMS Limitations: no limitations History of Present Illness HPI Narrative: 50-year-old female nonsmoker with history of asthma presents with a chief complaint of increasing fever, chills, body aches cough and chest pain over the past few days. She started feeling ill on Wednesday and tested positive for COVID on Wednesday. She continues to feel poorly and has headache, nasal congestion and sore throat. She denies any nausea, vomiting or diarrhea. Additionally, she has had right flank pain with hematuria and her primary care provider is concerned about the possibility of a kidney stone and she has an outpatient CT KUB ordered. On arrival EMS found her to be in increased work of breathing, she took her own albuterol at home and patient was requiring 4 L of oxygen during transport. Soon after her arrival she was put on room air and is holding steady in the mid to upper 90s despite an ABG noting a PO2 of 58 MD Complaint: shortness of breath and cough Onset (ago): hour(s) Severity: moderate Consistency/Duration: constant Relieving factors: oxygen and rest Exacerbating factors: nothing Related Data Previous Rx's Medication Instructions Recorded albuterol sulfate 2 puff INHALATION Q4-6H PRN #8.5 03/11/19 gram lisinopril 10 mg PO DAILY #30 tab 02/06/21 Allergies Allergy/AdvReac Type Severity Reaction Status Date / Time chocolate flavor Allergy Unknown Verified 02/06/21 12:37 [CHOCOLATE FLAVOR] adhesive tape [ADHESIVE TAPE] AdvReac Intermediate Verified 02/06/21 12:37 latex [LATEX] AdvReac Intermediate Verified 02/06/21 12:37 Review of Systems Constitutional Constitutional: Reports body ache(s), Reports chills, Reports fatigue, Reports fever(s), Denies frequent falls, Reports headache(s), Denies lethargy and Reports weakness Eyes Eyes: Denies change in vision, Denies eye discharge, Denies irritation and Denies loss of vision ENT Ears, Nose, Mouth, and Throat: Denies change in voice, Denies dizziness, Reports headache(s), Denies neck pain, Reports sore throat and Denies throat swelling Cardiovascular Cardiovascular: Reports chest pain, Denies irregular heart rhythm, Denies lightheadedness, Denies palpitations, Reports dyspnea, Reports dyspnea on exertion and Denies orthopnea Respiratory Respiratory: Reports cough, Reports dyspnea, Reports dyspnea on exertion and Re ports wheezing Gastrointestinal Gastrointestinal: Denies abdominal pain, Denies change in bowel habits, Denies diarrhea, Denies nausea and Denies vomiting Musculoskeletal Musculoskeletal: Denies neck pain and Denies numbness Integumentary/Breasts Skin/Breast: Denies pruritus, Denies erythema, Denies rash and Denies wounds Neurologic Neurologic: Denies behavioral changes, Denies confusion, Denies dizziness, Denies frequent falls, Reports headache(s), Denies loss of vision, Denies numbness and Reports weakness Psychiatric Psychiatric: Denies anxiety, Denies behavioral changes, Denies confusion, Denies depression, Denies homicidal ideation and Denies suicidal ideation Endocrine Endocrine: Reports fatigue, Denies flushing and Denies palpitations Hematologic/Lymphatic Hematologic/Lymphatic: Denies easy bruising Allergic/Immunologic Allergic/Immunologic: Denies urticaria, Denies throat swelling and Reports wheezing Patient History Medical History (Updated 03/26/21 @ 01:56 by Jayant Cooper DO) Frequent UTI Heavy menstrual period History of frequent headaches Surgical History Anesthesia History of removal of cyst Status post delivery (~1989) Status post tubal ligation (~1994) Family History Father Age: 82 Cancer Hypertension Mother Age: 78 Cancer Hypertension High cholesterol Grandfather Cancer Grandmother Heart disease Social History Smoking Status: Never smoker Smoking Status: Never smoker alcohol intake frequency: holidays/special occasions only Substance Use Type: does not use Exam Narrative Exam Narrative: GENERAL: [age][] year old patient appears stated age. Well- developed patient, in mild distress. HEAD: Atraumatic. Normocephalic. EYES: Pupils equal round and reactive. Extraocular motions intact. No scleral icterus. No injection or drainage. ENT: Nose without bleeding, purulent drainage. Throat without erythema, tonsillar hypertrophy or exudate. Airway patent. NECK: Trachea midline. Non tender CARDIOVASCULAR: Regular rate and rhythm without murmurs, gallops, or rubs. RESPIRATORY: crackles throughout with expiratory wheeze, no use of intercostals, no conversational dyspnea. Currently satting 97% on room air with good left GASTROINTESTINAL: Abdomen soft, non-tender, nondistended. EXTREMITIES: No edema or joint tenderness. BACK: Nontender without deformity or crepitance. No flank tenderness. NEURO: AOx3. SKIN: No rash or erythema of visible areas Initial Vital Signs Initial Vital Signs: Vital Signs Pulse Rate 118 H 03/25/21 17:45 Pulse Oximetry 94 03/25/21 17:45 Course Course Course Narrative: Patient took a brief break off of supplemental oxygen but resumed use at 3 L, this is not surprising given the results of her ABG and chest x-ray. She requires hospitalization for ongoing treatment and stabilization including supplemental oxygen, steroids, remdesivir. Patient understands and agrees with the plan. 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 swab/PCR) Stat 03/25/21 19:25 D Dimer Stat 03/25/21 20:27 Blood Culture Stat Acetaminophen (Acetaminophen 325 Mg Tablet) 650 mg PO Q6HR PRN PRN Reason: Fever/Mild Pain (1-3) Last Admin: 03/26/21 00:52 Dose: 650 mg Documented by: SSARDEL Dexamethasone (Dexamethasone 10 Mg/Ml Vial) 6 mg IV DAILY SKYLA Enoxaparin Sodium (Enoxaparin 40 Mg/0.4 Ml Syringe) 40 mg SUBCUT DAILY SKYLA Sodium Chloride (Normal Saline 0.9%) 1,000 mls @ 125 mls/hr IV CONT SKYLA Last Admin: 03/25/21 19:15 Dose: 125 mls/hr Documented by: DBROYLE Sodium Chloride (Normal Saline 0.9%) 1,000 mls @ 100 mls/hr IV CONT SKYLA Remdesivir 100 mg/ Sodium (Chloride) 250 mls @ 250 mls/hr IV 2100 SKYLA Stop: 03/29/21 21:59 Lisinopril (Lisinopril 10 Mg Tablet) 10 mg PO DAILY SKYLA Naloxone HCl (Naloxone 0.4 Mg/Ml Vial) 0.2 mg IV Q2MIN PRN PRN Reason: Opiate Reversal Ondansetron HCl (Ondansetron 4 Mg/2 Ml Inj) 4 mg IV Q8HR PRN PRN Reason: Nausea And Vomiting Discontinued Medications Dexamethasone (Dexamethasone 10 Mg/Ml Vial) 6 mg IV NOW ONE Stop: 03/25/21 20:16 Last Admin: 03/25/21 20:36 Dose: 6 mg Documented by: SUNNY Remdesivir 200 mg/ Sodium (Chloride) 250 mls @ 250 mls/hr IV NOW ONE Stop: 03/25/21 20:16 Last Infusion: 03/25/21 22:33 Dose: 0 mls/hr Documented by: Admin: 03/25/21 20:56 Dose: 250 mls/hr Documented by: SUNNY Ketorolac Tromethamine (Ketorolac 30 Mg/Ml Vial) 15 mg IV NOW ONE Stop: 03/25/21 18:21 Last Admin: 03/25/21 19:14 Dose: 15 mg Documented by: SUNNY Vital Signs Vital signs: Vital Signs - 8 hr 03/25/21 18:00 03/25/21 18:15 03/25/21 18:23 Temperature 100.7 F H Pulse Rate 122 H 122 H 123 H Respiratory Rate 35 H 29 H 24 Blood Pressure 111/66 127/78 Pulse Oximetry 96 95 96 03/25/21 18:30 03/25/21 18:32 03/25/21 18:45 Temperature Pulse Rate 118 H 117 H Respiratory Rate 31 H 16 33 H Blood Pressure 123/74 Pulse Oximetry 97 97 98 03/25/21 19:00 03/25/21 19:15 03/25/21 19:30 Temperature Pulse Rate 123 H 120 H 136 H Respiratory Rate 37 H 28 H 44 H Blood Pressure 139/82 128/92 H Pulse Oximetry 96 97 94 03/25/21 19:45 03/25/21 20:00 03/25/21 20:15 Temperature Pulse Rate 118 H 118 H 121 H Respiratory Rate 29 H 28 H 31 H Blood Pressure 117/65 Pulse Oximetry 96 95 97 MDM - SOB/Dyspnea Lab Data Result diagrams: 03/25/21 18:10 03/25/21 18:10 Labs: Lab Results 03/25/21 03/25/21 03/25/21 Range/Units 18:10 18:10 18:10 WBC 6.5 (4.5-11.0) X10^3/uL RBC 4.49 (4.0-5.2) X10^6/uL Hgb 13.4 (12.0-16.0) g/dL Hct 39.5 (36-46) % MCV 87.9 (80-100) fL MCH 29.9 (26-34) PG MCHC 34.0 (30-36) % RDW 13.6 (11.6-14.8) % Plt Count 193 (150-400) X10^3/uL Neut % (Auto) 87.2 H (50-75) % Lymph % (Auto) 8.5 L (25-40) % [place] % (Auto) 4.1 (3-14) % Eos % (Auto) 0.0 L (2-4) % Baso % (Auto) 0.2 (0-2) % Neut # (Auto) 5700 (7439-0735) /uL Lymph # (Auto) 600 L (4917-3401) /uL [place] # (Auto) 300 (0-900) /uL Eos # (Auto) 0 (0-450) /uL Baso # (Auto) 0 (0-100) /uL D-Dimer (<230) ng/mL ABG pH (7.35-7.45) ABG pCO2 (35-45) mmHg ABG pO2 (80-100) mmHg ABG HCO3 (22-26) mmol/L ABG Total CO2 (21-31) mmol/L ABG O2 Saturation (95-100) % ABG Base Excess (-2-2) mmol/L FiO2 Sodium 137 (137-145) mmol/L Potassium 4.0 (3.4-5.1) mmol/L Chloride 103 (98-107) mmol/L Carbon Dioxide 26 (22-32) mmol/L BUN 8 (7-17) mg/dL Creatinine 0.86 (0.52-1.04) mg/dL Estimated GFR > 60.0 (>60) mL/min BUN/Creatinine Ratio 9.3 (6-22) Glucose 120 H (70-100) mg/dL Lactate 0.8 (0.7-2.1) mmol/L Calcium 8.7 (8.4-10.2) mg/dL Ferritin 458 H (11-264) ng/mL Total Bilirubin 0.3 (0.2-1.3) mg/dL AST 39 H (14-36) IU/L ALT 31 (<35) IU/L Alkaline Phosphatase 55 (38-126) U/L Lactate Dehydrogenase 596 (313-618) U/L Total Creatine Kinase 81 (30-135) U/L CK-MB (CK-2) TNP CK-MB (CK-2) Rel Index TNP Troponin I < 0.012 (0.01-0.034) ng/mL C-Reactive Protein 7.8 H (<1.0) mg/dL NT-Pro-B Natriuret Pep 20 (<125) pg/mL Total Protein 7.4 (6.3-8.2) g/dL Albumin 4.1 (3.5-5.0) g/dL Globulin 3.3 (1.7-4.1) g/dL Albumin/Globulin Ratio 1.2 (1.0-2.8) Procalcitonin 0.06 (<0.5) ng/mL SARS-CoV-2 (PCR) (Negative) 03/25/21 03/25/21 03/25/21 Range/Units 18:13 19:15 19:25 WBC (4.5-11.0) X10^3/uL RBC (4.0-5.2) X10^6/uL Hgb (12.0-16.0) g/dL Hct (36-46) % MCV (80-100) fL MCH (26-34) PG MCHC (30-36) % RDW (11.6-14.8) % Plt Count (150-400) X10^3/uL Neut % (Auto) (50-75) % Lymph % (Auto) (25-40) % [place] % (Auto) (3-14) % Eos % (Auto) (2-4) % Baso % (Auto) (0-2) % Neut # (Auto) (2313-6855) /uL Lymph # (Auto) (1080-8314) /uL [place] # (Auto) (0-900) /uL Eos # (Auto) (0-450) /uL Baso # (Auto) (0-100) /uL D-Dimer 222 (<230) ng/mL ABG pH 7.47 H (7.35-7.45) ABG pCO2 31.0 L (35-45) mmHg ABG pO2 58 L (80-100) mmHg ABG HCO3 22 (22-26) mmol/L ABG Total CO2 23 (21-31) mmol/L ABG O2 Saturation 92 L (95-100) % ABG Base Excess -1.0 (-2-2) mmol/L FiO2 21 Sodium (137-145) mmol/L Potassium (3.4-5.1) mmol/L Chloride (98-107) mmol/L Carbon Dioxide (22-32) mmol/L BUN (7-17) mg/dL Creatinine (0.52-1.04) mg/dL Estimated GFR (>60) mL/min BUN/Creatinine Ratio (6-22) Glucose (70-100) mg/dL Lactate (0.7-2.1) mmol/L Calcium (8.4-10.2) mg/dL Ferritin (11-264) ng/mL Total Bilirubin (0.2-1.3) mg/dL AST (14-36) IU/L ALT (<35) IU/L Alkaline Phosphatase (38-126) U/L Lactate Dehydrogenase (313-618) U/L Total Creatine Kinase (30-135) U/L CK-MB (CK-2) CK-MB (CK-2) Rel Index Troponin I (0.01-0.034) ng/mL C-Reactive Protein (<1.0) mg/dL NT-Pro-B Natriuret Pep (<125) pg/mL Total Protein (6.3-8.2) g/dL Albumin (3.5-5.0) g/dL Globulin (1.7-4.1) g/dL Albumin/Globulin Ratio (1.0-2.8) Procalcitonin (<0.5) ng/mL SARS-CoV-2 (PCR) Positive H (Negative) Discharge Plan Departure Patient Disposition: Admitted As Inpatient Clinical Impression: Pneumonia due to COVID-19 virus Admit Date/Time: 03/25/21 20:34 Admit Provider: Tameka Matt
[2021-03-25 18:19] LABS: Add Manual Diff / Slide Review NO; Basophils Absolute Auto 0 /uL (0-100); Basophils Percent Auto 0.2 % (0-2); Eosinophils Absolute Auto 0 /uL (0-450); Hematocrit 39.5 % (36-46); Hemoglobin 13.4 g/dL (12.0-16.0); Lymphocytes Absolute Auto 600 /uL (1100-4500); Lymphocytes Percent Auto 8.5 % (25-40); Mean Corpuscular Hemoglobin 29.9 PG (26-34); Mean Corpuscular Volume 87.9 fL (80-100); Monocytes Absolute Auto 300 /uL (0-900); Monocytes Percent Auto 4.1 % (3-14); Neutrophils Absolute Auto 5700 /uL (1500-7000); Neutrophils Percent Auto 87.2 % (50-75); Platelet Count 193 X10^3/uL (150-400); Red Blood Cell Count 4.49 X10^6/uL (4.0-5.2); Red Cell Distribution Width 13.6 % (11.6-14.8); White Blood Cell Count 6.5 X10^3/uL (4.5-11.0)
[2021-03-25 18:31] LABS: HCO3 ABG 22 mmol/L (22-26); PO2 ABG 58 mmHg (80-100); pH ABG 7.47 (7.35-7.45)
[2021-03-25 18:32] LABS: Fractionated Inspired Oxygen 21; Oxygen Saturation ABG 92 % (95-100); TCO2 ABG 23 mmol/L (21-31)
[2021-03-25 18:36] LABS: Lactate (Lactic Acid) 0.8 mmol/L (0.7-2.1)
[2021-03-25 18:37] LABS: Alanine Aminotransferase 31 IU/L (<35); Albumin 4.1 g/dL (3.5-5.0); Albumin Globulin Ratio 1.2 (1.0-2.8); Alkaline Phosphatase 55 U/L (38-126); Aspartate Aminotransferase 39 IU/L (14-36); BUN Creatinine Ratio 9.3 (6-22); Bilirubin Total 0.3 mg/dL (0.2-1.3); Blood Urea Nitrogen 8 mg/dL (7-17); C-Reactive Protein Quant 7.8 mg/dL (<1.0); Calcium 8.7 mg/dL (8.4-10.2); Carbon Dioxide 26 mmol/L (22-32); Chloride 103 mmol/L (98-107); Creatine Kinase 81 U/L (30-135); Estimated Glomerular Filt Rate > 60.0 mL/min (>60); Globulin 3.3 g/dL (1.7-4.1); Glucose 120 mg/dL (70-100); HEMOLYSIS < 15 (0-50); Lactate Dehydrogenase 596 U/L (313-618); Sodium 137 mmol/L (137-145); Total Protein 7.4 g/dL (6.3-8.2)
[2021-03-25 18:48] LABS: NT-proBNP (BNP-Adult 18+) 20 pg/mL (<125); Troponin I < 0.012 ng/mL (0.01-0.034)
[2021-03-25 18:52] LABS: Procalcitonin 0.06 ng/mL (<0.5)
[2021-03-25 19:10] LABS: Ferritin 458 ng/mL (11-264)
[2021-03-25] MEDS: KETOROLAC 30 MG/ML VIAL 15 MG IV (19:14)
[2021-03-25] MEDS: SODIUM CHLORIDE 0.9% 1,000 ML 125 ML IV (19:15)
[2021-03-25 19:43] LABS: D Dimer 222 ng/mL (<230)
[2021-03-25 20:26] LABS: COVID19 - ADMIT (NP swab/PCR) POSITIVE (Negative)
[2021-03-25] MEDS: DEXAMETHASONE 10 MG/ML VIAL 6 MG IV (20:36)
[2021-03-25] MEDS: REMDESIVIR 200 MG in SODIUM CHLORIDE 0.9% 210 ML 250 ML IV (20:56)
[2021-03-26] VITALS (10 sets, daily range): BP systolic 96–142; BP diastolic 56–86; PULSE 73–110; RESP 19–36; TEMP 36.3–37.4; O2SAT 91–98; BMI 33.8
[2021-03-26] MEDS: ACETAMINOPHEN 325 MG TABLET 650 MG PO ×2 (00:52→20:17)
[2021-03-26] MEDS: SODIUM CHLORIDE 0.9% 1,000 ML 100 ML IV (05:09)
--- NOTE | 2021-03-26 05:09 | P.HP_ITS ---
History of Present Illness History of Present Illness Date Patient Seen: 03/25/21 Time Patient Seen: 01:30 Chief complaint: Difficulty breathing, covid + Narrative: Joycelyn Dela Cruz is a 50-year-old non-smoking female who developed fever, sweats, cough, shortness of breath all of her body aches and chest pain. She began to feel ill 4 days ago and went to the pharmacy and was tested there and found she was positive as of Wednesday of this week. She continues to feel weak has a mild headache, sore throat cough. She denies any nausea vomiting, dysuria, diarrhea or constipation. She did contact EMS and they found her to have increased work of breathing and required 4 L of oxygen during transport to the hospital. Her adult children had traveled to [place] and then [place] and she believes that she contracted it from them even though they have not tested positive. Her is apparently positive with COVID as well as multiple members of their sikh. She and her are not vaccinated and do not intend to get the vaccinations because they did feel that not enough is known about vaccinations. Chest x-ray ordered in the ED was read as the following ?Bibasilar retrocardiac opacities most suspicious for pneumonia. Recommend interval follow up after appropriate therapy to document resolution exclude presence of underlying mass lesion. Patient's T-max was 100.7? and it is currently 98.4, her blood pressure is 96/56, heart rate 73, respiratory rate 21, oxygen saturation of 92% on room air she weighs 81.1 kg with a BMI of 33.8. Her CBC is unremarkable, D-dimer was normal at 222, ABG pH was 7.47, pCO2 31, PO2 58, bicarb 22, total CO2 23, ABG oxygen saturation 92%, glucose is mildly elevated at 120, ferritin is elevated at 458, AST 39, C-reactive protein is elevated at 7.8, and procalcitonin was 0.6, COVID 19 PCR was positive. Patient History Medical History Frequent UTI Heavy menstrual period History of frequent headaches Surgical History Anesthesia History of removal of cyst Status post delivery (~1989) Status post tubal ligation (~1994) Family & Social History Family History Father Age: 82 Cancer Hypertension Mother Age: 78 Cancer Hypertension High cholesterol Grandfather Cancer Grandmother Heart disease Social History: household members spouse Prior Living Arrangements Mobile home Safety & Behavioral: Feels Safe in Current Yes Environment Been Physically Hurt or No Threatened By a Person Suicidal Ideation Description None Suicide Plan Description No Plan Tobacco & Substance use: Smoking Status Never smoker alcohol intake frequency holiday/special occasion Substance Use Type does not use Meds Home Medications and Allergies Home Medications Medication Instructions Recorded Confirmed Type albuterol sulfate 2 puff INHALATION Q4-6H PRN #8.5 03/11/19 Rx gram lisinopril 10 mg PO DAILY #30 tab 02/06/21 Rx Allergies Allergy/AdvReac Type Severity Reaction Status Date / Time chocolate flavor Allergy Unknown Verified 02/06/21 12:37 [CHOCOLATE FLAVOR] adhesive tape [ADHESIVE TAPE] AdvReac Intermediate Verified 02/06/21 12:37 latex [LATEX] AdvReac Intermediate Verified 02/06/21 12:37 Review of Systems Review of Systems ROS: Yes All systems reviewed with the patient and are negative except as otherwise documented Exam Vital Signs (past 8 hours): - 03/26/21 00:31 03/26/21 04:00 Temperature 98.4 F Pulse Rate 110 H 73 Respiratory Rate 20 21 Blood Pressure 115/58 L 96/56 L Pulse Oximetry 97 92 Oxygen Delivery Method Nasal Cannula Oxygen Flow Rate 0 Narrative Exam Narrative: Gen: Alert, oriented, obese 50 y.o. female, appears fatigued HEENT: normocephalic, atraumatic, conjunctiva clear, sclera non-icteric, oral mucosa pink and moist Neck: supple, full ROM, no JVD, trachea is midline Resp: Lung sounds deminished but clear, non-labored breathing CV: RRR, no murmur or rubs Abd: soft, non-tender, normoactive BTs Skin: no lesions or rashes, dry and intact Neuro: Alert and oriented X 4 w/no focal deficits. Speech clear and coherent. Extremities: moves all 4 extremities, is ambulatory, negative Carlos?s sign Psyche: normal mood and affect. Objective Labs Result Diagrams: 03/25/21 18:10 03/25/21 18:10 Labs: Laboratory Results - last 24 hr 03/25/21 03/25/21 03/25/21 18:10 18:10 18:10 WBC 6.5 RBC 4.49 Hgb 13.4 Hct 39.5 MCV 87.9 MCH 29.9 MCHC 34.0 RDW 13.6 Plt Count 193 Neut % (Auto) 87.2 H Lymph % (Auto) 8.5 L Daw[place] % (Auto) 4.1 Eos % (Auto) 0.0 L Baso % (Auto) 0.2 Neut # (Auto) 5700 Lymph # (Auto) 600 L [place] # (Auto) 300 Eos # (Auto) 0 Baso # (Auto) 0 D-Dimer ABG pH ABG pCO2 ABG pO2 ABG HCO3 ABG Total CO2 ABG O2 Saturation ABG Base Excess FiO2 Sodium 137 Potassium 4.0 Chloride 103 Carbon Dioxide 26 BUN 8 Creatinine 0.86 Estimated GFR > 60.0 BUN/Creatinine Ratio 9.3 Glucose 120 H Lactate 0.8 Calcium 8.7 Ferritin 458 H Total Bilirubin 0.3 AST 39 H ALT 31 Alkaline Phosphatase 55 Lactate Dehydrogenase 596 Total Creatine Kinase 81 CK-MB (CK-2) TNP CK-MB (CK-2) Rel Index TNP Troponin I < 0.012 C-Reactive Protein 7.8 H NT-Pro-B Natriuret Pep 20 Total Protein 7.4 Albumin 4.1 Globulin 3.3 Albumin/Globulin Ratio 1.2 Procalcitonin 0.06 Nasal Screen MRSA (PCR) SARS-CoV-2 (PCR) 03/25/21 03/25/21 03/25/21 18:13 19:15 19:25 WBC RBC Hgb Hct MCV MCH MCHC RDW Plt Count Neut % (Auto) Lymph % (Auto) Daw[place] % (Auto) Eos % (Auto) Baso % (Auto) Neut # (Auto) Lymph # (Auto) [place] # (Auto) Eos # (Auto) Baso # (Auto) D-Dimer 222 ABG pH 7.47 H ABG pCO2 31.0 L ABG pO2 58 L ABG HCO3 22 ABG Total CO2 23 ABG O2 Saturation 92 L ABG Base Excess -1.0 FiO2 21 Sodium Potassium Chloride Carbon Dioxide BUN Creatinine Estimated GFR BUN/Creatinine Ratio Glucose Lactate Calcium Ferritin Total Bilirubin AST ALT Alkaline Phosphatase Lactate Dehydrogenase Total Creatine Kinase CK-MB (CK-2) CK-MB (CK-2) Rel Index Troponin I C-Reactive Protein NT-Pro-B Natriuret Pep Total Protein Albumin Globulin Albumin/Globulin Ratio Procalcitonin Nasal Screen MRSA (PCR) SARS-CoV-2 (PCR) Positive H 03/26/21 00:30 WBC RBC Hgb Hct MCV MCH MCHC RDW Plt Count Neut % (Auto) Lymph % (Auto) Dawes % (Auto) Eos % (Auto) Baso % (Auto) Neut # (Auto) Lymph # (Auto) Daw[place] # (Auto) Eos # (Auto) Baso # (Auto) D-Dimer ABG pH ABG pCO2 ABG pO2 ABG HCO3 ABG Total CO2 ABG O2 Saturation ABG Base Excess FiO2 Sodium Potassium Chloride Carbon Dioxide BUN Creatinine Estimated GFR BUN/Creatinine Ratio Glucose Lactate Calcium Ferritin Total Bilirubin AST ALT Alkaline Phosphatase Lactate Dehydrogenase Total Creatine Kinase CK-MB (CK-2) CK-MB (CK-2) Rel Index Troponin I C-Reactive Protein NT-Pro-B Natriuret Pep Total Protein Albumin Globulin Albumin/Globulin Ratio Procalcitonin Nasal Screen MRSA (PCR) Negative for mrsa SARS-CoV-2 (PCR) Assessment & Plan Assessment & Plan narrative: Joycelyn Dela Cruz will be admitted for treatment and management of a COVID-19 flu. COVID -19, acute and present on admission * patient was started on IV remdesivir 200 mg and dexamethasone 6 mg * She will be continued on IV remdesivir 100 mg daily for 4 more days and dexamethasone 6 mg daily * She is placed in a negative pressure room in the ICU however is medical inpatient status for now * Patient has been on still cannula and will be advanced to high-flow nasal cannula if necessary * Due to her obese stature she is at high risk for advancing to a hypoxic state Hypertension, chronic * Patient normally takes lisinopril 10 mg p.o. daily however she is currently hypotensive and this will be withheld until she becomes normotensive VTE prophylaxis: Wells risk score: 3 Enoxaparin 40 mg subQ daily Consults: none Patient is admitted under inpatient status with expected length of stay greater than 2 midnights due to severity of presenting symptoms, risk of adverse event, and complexity of treatment plan. FEN: Saline lock, Heart Healthy diet, CMP and magnesium in the am. Dispo: probable discharge to home Code Status: Full code as discussed with patient COVID-19 COVID-19 status: Positive Result date/Date tested (Pos, Neg/Pending): 03/25/21 Scores Wells' Criteria for PE Clinical signs and symptoms of DVT: Yes PE is #1 Dx or equally likely: No Heart rate > 100: No Immobilization at least 3 days or surg in previous 4 weeks: No History of PE or DVT: No Hemoptysis: No Malignancy w/Treatment within 6 months or palliative: No Wells' PE Score total: 3 Quality VTE Deep Vein Thrombosis/Pulmonary Embolism Present on Admission: No MIPS - Admit I confirm the patient?s Advance Care Plan is present, Code status is documented, Surrogate decision maker is in patient?s record [If Yes, STOP here]: Yes
[2021-03-26 05:45] LABS: Add Manual Diff / Slide Review NO; Basophils Absolute Auto 0 /uL (0-100); Basophils Percent Auto 0.3 % (0-2); Eosinophils Absolute Auto 0 /uL (0-450); Hematocrit 37.4 % (36-46); Hemoglobin 12.6 g/dL (12.0-16.0); Lymphocytes Absolute Auto 800 /uL (1100-4500); Lymphocytes Percent Auto 14.3 % (25-40); Mean Corpuscular HGB Conc 33.6 % (30-36); Mean Corpuscular Hemoglobin 29.6 PG (26-34); Mean Corpuscular Volume 88.3 fL (80-100); Monocytes Absolute Auto 200 /uL (0-900); Monocytes Percent Auto 3.2 % (3-14); Neutrophils Absolute Auto 4800 /uL (1500-7000); Neutrophils Percent Auto 82.2 % (50-75); Platelet Count 196 X10^3/uL (150-400); Red Blood Cell Count 4.24 X10^6/uL (4.0-5.2); Red Cell Distribution Width 13.6 % (11.6-14.8); White Blood Cell Count 5.8 X10^3/uL (4.5-11.0)
[2021-03-26 05:58] LABS: Alanine Aminotransferase 30 IU/L (<35); Albumin 3.6 g/dL (3.5-5.0); Albumin Globulin Ratio 1.2 (1.0-2.8); Alkaline Phosphatase 45 U/L (38-126); Aspartate Aminotransferase 38 IU/L (14-36); Bilirubin Total 0.3 mg/dL (0.2-1.3); Bilirubin Unconjugated 0.2 mg/dL (0.0-1.1); HEMOLYSIS < 15 (0-50); Total Protein 6.6 g/dL (6.3-8.2)
[2021-03-26 05:59] LABS: BUN Creatinine Ratio 15.2 (6-22); Blood Urea Nitrogen 10 mg/dL (7-17); Calcium 7.8 mg/dL (8.4-10.2); Carbon Dioxide 22 mmol/L (22-32); Chloride 108 mmol/L (98-107); Estimated Glomerular Filt Rate > 60.0 mL/min (>60); Glucose 133 mg/dL (70-100); HEMOLYSIS < 15 (0-50); Potassium 4.2 mmol/L (3.4-5.1); Sodium 138 mmol/L (137-145)
--- NOTE | 2021-03-26 05:59 | PC.NURSE ---
Addendum entered by Krystin Montez R.N. 03/26/21 06:03: SpO2 > 94% at rest, desats to mid 80s when up to BSC, lung sounds diminished with ins & exp wheezes to Rt anterior. ST around 100 upon admit, then SR 80s by am, afebrile, BP stable. Urine is concentrated and slightly cloudy, sent for culture. Tylenol given for headache. Original Note: Shift Note-Patient admitted to ICU negative pressure room 231 for positive COVID-19, she is oriented x4, fatigued, short of breath with activity, RR 20s-30s, any activity causes dry non-productive cough, on 2-3L NC, Spo
[2021-03-26] MEDS: ENOXAPARIN 40 MG/0.4 ML SYRINGE SUBCUT (08:45)
[2021-03-26] MEDS: DEXAMETHASONE 10 MG/ML VIAL 6 MG IV (08:45)
--- NOTE | 2021-03-26 16:29 | CM.DANOTE ---
DCP/Assessment: Reviewed chart. Patient is a 50yr old female admitted to [facility] with SOB. Patient currently COVID positive. PCP listed is Hardeep Longoria. Primary payor is 1)William 2)Medicaid. Spoke with RN this AM. She reports that patient lives with family and is completely I with ADL's. At this time there are no anticipated d/c planning needs. CM team to continue to follow. P:Home when medically stable. SHERIE Valdes Discharge Planning/Care Management Advanced directive, confirm from FAMILY Start: 03/26/21 02:57 Freq: Q24H Status: Active Protocol: Document 03/26/21 09:00 JW (Rec: 03/26/21 09:08 JW [id number]) Advance Directive, confirm on record Time 09:08 Person contacted pt Copy received No CM Discharge Assessment Start: 03/26/21 16:27 Freq: Status: Active Protocol: Document 03/26/21 16:28 KJS (Rec: 03/26/21 16:29 KJS [id number]) Discharge Planning Assessment Assigned Literacy Coach SHERIE Valdes Contact Information Rohit Dela Cruz (spouse) ph# [phone] Advance Directives? No Advance Directives on File No History Provided By Medical Record Prior Living Arrangements Mobile home Household Members spouse Type of transporation used prior to Drives own vehicle admit Independent with ADL's Yes Is patient alert and oriented? Yes: Per nursing Barriers to Discharge No Discharge Plan Home Transportation Arrangement Family Review Status In Process Next Review Type Continued Stay Review
[2021-03-26 16:36] LABS: Enterococcus species Not Detected (Not Detect); Listeria monocytogenes Not Detected (Not Detect)
[2021-03-26 16:37] LABS: Acinetobacter baumannii Not Detected (Not Detect); Candida albicans Not Detected (Not Detect); Candida glabrata Not Detected (Not Detect); Candida krusei Not Detected (Not Detect); Candida parapsilosis Not Detected (Not Detect); Candida tropicalis Not Detected (Not Detect); E. coli Not Detected (Not Detect); Enterobacter cloacae complex Not Detected (Not Detect); Enterobacteriaceae species Not Detected (Not Detect); Haemophilus influenzae Not Detected (Not Detect); Methicillin-resistant gene Not Detected (Not Detect); Neisseria meningitidis Not Detected (Not Detect); Proteus species Not Detected (Not Detect); Pseudomonas aeruginosa Not Detected (Not Detect); Serratia marcescens Not Detected (Not Detect); Staphylococcus species Detected (Not Detect); Streptococcus agalactiae (Gr B Not Detected (Not Detect); Streptococcus pneumonia Not Detected (Not Detect); Streptococcus pyogenes (Gr A) Not Detected (Not Detect); Streptococcus species Not Detected (Not Detect)
[2021-03-26] MEDS: REMDESIVIR 100 MG in SODIUM CHLORIDE 0.9% 230 ML 250 ML IV (20:16)
[2021-03-26] MEDS: MELATONIN 3 MG TABLET PO (20:16)
[2021-03-27] VITALS (7 sets, daily range): BP systolic 106–134; BP diastolic 60–74; PULSE 87–109; RESP 16–26; TEMP 37–37.8; O2SAT 94–99
[2021-03-27] MEDS: ONDANSETRON 4 MG/2 ML INJ IV (00:28)
[2021-03-27] MEDS: SODIUM CHLORIDE 0.9% FLUSH 10 ML IV ×3 (00:30→21:12)
[2021-03-27] MEDS: ACETAMINOPHEN 325 MG TABLET 650 MG PO ×3 (02:42→18:02)
--- NOTE | 2021-03-27 06:33 | PC.NURSE ---
Military Science Instructor Note-Patient remains fatigued, has intermittent nausea, no vomit, IV Zofran given, Tylenol given for headache. Patient attempted to prone, able to for 2 hrs. Has use 3L NC intermittently for shortness of breath after activity to BSC or into BR, SR/ST.
[2021-03-27 06:43] LABS: Alanine Aminotransferase 28 IU/L (<35); Albumin 3.4 g/dL (3.5-5.0); Albumin Globulin Ratio 1.2 (1.0-2.8); Alkaline Phosphatase 44 U/L (38-126); Aspartate Aminotransferase 39 IU/L (14-36); Bilirubin Total 0.3 mg/dL (0.2-1.3); Bilirubin Unconjugated 0.2 mg/dL (0.0-1.1); Globulin 2.9 g/dL (1.7-4.1); HEMOLYSIS < 15 (0-50); Total Protein 6.3 g/dL (6.3-8.2)
[2021-03-27] MEDS: ENOXAPARIN 40 MG/0.4 ML SYRINGE SUBCUT (09:20)
[2021-03-27] MEDS: DEXAMETHASONE 10 MG/ML VIAL 6 MG IV (09:21)
[2021-03-27] MEDS: lisinopriL 10 MG TABLET PO (09:21)
--- NOTE | 2021-03-27 17:02 | PM.PN.1 ---
Subjective Subjective Date Patient Seen: 03/27/21 Interval history: The patient is a 50-year-old female admitted to the hospital with respiratory failure secondary to COVID pneumonia. Patient continues to feel poorly. She has a chronic dry cough. She describes feeling short of breath with exertion. Patient is noted to desaturate with O2 sats in the 88 percentile range 89% with activity but improves to 95% at rest. Patient complains of back pain which she attributes to lying in bed Exam Vital Signs (past 8 hours): - 03/27/21 12:00 Temperature 99.0 F Pulse Rate 100 H Respiratory Rate 16 Blood Pressure 126/74 Pulse Oximetry 98 Oxygen Delivery Method Room Air Oxygen Flow Rate 0 Narrative Exam Narrative: Ill-appearing female Lungs: Decreased breath sounds with diffuse scattered rhonchi bilaterally Cardiac exam: Regular rate and rhythm normal S1-S2 Abdomen: Soft nontender nondistended Lower extremities: No edema Objective Labs Result Diagrams: 03/26/21 05:30 03/26/21 05:30 Labs: Laboratory Results - last 24 hr 03/27/21 05:50 Total Bilirubin 0.3 Conjugated Bilirubin 0.0 Unconjugated Bilirubin 0.2 AST 39 H ALT 28 Alkaline Phosphatase 44 Total Protein 6.3 Albumin 3.4 L Globulin 2.9 Albumin/Globulin Ratio 1.2 PFSH Medical History Frequent UTI Heavy menstrual period History of frequent headaches Surgical History Anesthesia History of removal of cyst Status post delivery (~1989) Status post tubal ligation (~1994) Family History Father Age: 82 Cancer Hypertension Mother Age: 78 Cancer Hypertension High cholesterol Grandfather Cancer Grandmother Heart disease Social History household members: spouse Smoking Status: Never smoker Assessment & Plan Assessment & Plan narrative: 50-year-old female admitted to the hospital with respiratory failure secondary to COVID pneumonia -patient continues to be hypoxic with activity. Desaturates to 88 89% with minimal exertion -will continue Decadron 6 mg per day, IV remdesivir 100 mg per day for full 5 day course or when the patient is no longer hypoxic -continue as needed oxygen as needed -continue DVT prophylaxis Hypertension -continue antihypertensive therapy Continue inpatient treatment into the patient no longer has evidence of exertional hypoxia Quality VTE Deep Vein Thrombosis/Pulmonary Embolism Present on Admission: No
[2021-03-27] MEDS: CODEINE/GUAIFENESIN LIQUID 5ML UDC 10 ML PO (18:01)
[2021-03-27] MEDS: REMDESIVIR 100 MG in SODIUM CHLORIDE 0.9% 230 ML 250 ML IV (21:12)
--- NOTE | 2021-03-27 21:59 | PC.NURSE ---
Patient has been resting in bed most of the shift. Up to the BSC occasionally throughout the shift. Patient has been on RA w/sats mid 90s. Patient with a harsh dry cough, Guaifenesin w/Codeine ordered, given and helpful, patient was able to sleep part of the shift. Patient has been A&O, calm and cooperative.
[2021-03-28] VITALS (9 sets, daily range): BP systolic 105–138; BP diastolic 59–95; PULSE 89–96; RESP 17–28; TEMP 36.6–37.2; O2SAT 91–94
[2021-03-28] MEDS: MELATONIN 3 MG TABLET PO ×2 (00:33→21:33)
[2021-03-28] MEDS: ONDANSETRON 4 MG/2 ML INJ IV ×2 (00:40→03:42)
[2021-03-28] MEDS: PANTOPRAZOLE DR 20 MG TABLET 40 MG PO (03:59)
[2021-03-28] MEDS: ENOXAPARIN 40 MG/0.4 ML SYRINGE SUBCUT (08:04)
[2021-03-28] MEDS: DEXAMETHASONE 10 MG/ML VIAL 6 MG IV (08:04)
[2021-03-28] MEDS: SODIUM CHLORIDE 0.9% FLUSH 10 ML IV ×2 (08:05→21:34)
--- NOTE | 2021-03-28 08:29 | PC.NURSE ---
Addendum entered by Monique Fay R.N. 03/28/21 13:14: Patient up ambulating IND in the room. IS placed bedside, patient instructed to use. Patient hovering high 80's -low 90's. Currently on 4L after a shower. Up to chair for lunch. Call light in reach. Addendum entered by Monique Fay R.N. 03/28/21 10:24: Patient A/O x 3, c/o SOB, attempted to decrease O2 patient remained mid 80's, during titration. Patient remains on 3L via NC at this time. RR at 28, a bit shallow. Intermittent non productive cough noted. Patient c/o pain with inspiration. Crackles noted mid to lower lobe bilaterally in the posterior aspect. MD aware in change of status. Chest XR ordered. Patient remains Saline locked. SCD's on. Call light in reach. Denies further needs at this time. Original Note: Patient requests to hold Lisinopril.
--- NOTE | 2021-03-28 09:21 | DI.RAD.S_ITS ---
PROCEDURE: XR CHEST 1V INDICATIONS: Change in status TECHNIQUE: One view of the chest was acquired. COMPARISON: [facility], CR, XR CHEST 1V, 03/25/2021, 18:12. FINDINGS: Surgical changes and devices: None. Lungs and pleura: Extensive airspace opacities are noted in bilateral mid to lower lung cortes with interval worsening of bilateral lung aeration. No pleural effusions or pneumothorax. Mediastinum: Mediastinal contours appear normal. Heart size is normal. Bones and chest wall: No suspicious bony lesions. Overlying soft tissues appear unremarkable. IMPRESSION: Finding is suggestive of worsening bilateral pulmonary infiltrates. Dictated by: Anatoly Eid M.D. on 03/28/2021 at 10:00 Approved by: Anatoly Eid M.D. on 03/28/2021 at 10:01
--- NOTE | 2021-03-28 13:54 | PM.PN.1 ---
Subjective Subjective Date Patient Seen: 03/28/21 Time Patient Seen: 08:54 Interval history: Today she feels similar to yesterday. Still short of breath primarily with activity. However, per nursing she has had increasing hypoxemia and has needed consistent oxygen rather than PRN oxygen, now up to 3L. Patient denying any other symptoms. Exam Vital Signs (past 8 hours): - 03/28/21 07:00 03/28/21 13:00 Temperature 98.6 F 98.4 F Pulse Rate 91 H 91 H Respiratory Rate 28 H 20 Blood Pressure 105/62 106/59 L Pulse Oximetry 93 91 Oxygen Delivery Method Nasal Cannula Oxygen Flow Rate 4 Narrative Exam Narrative: General. no acute distress Lungs: Decreased breath sounds bilaterally, rhonchi on left lung Cardiac exam: Regular rate and rhythm with no murmurs Abdomen: Soft nontender nondistended Lower extremities: No edema Objective Labs Result Diagrams: 03/26/21 05:30 03/26/21 05:30 [facility] Medical History Frequent UTI Heavy menstrual period History of frequent headaches Surgical History Anesthesia History of removal of cyst Status post delivery (~1989) Status post tubal ligation (~1994) Family History Father Age: 82 Cancer Hypertension Mother Age: 78 Cancer Hypertension High cholesterol Grandfather Cancer Grandmother Heart disease Social History household members: spouse Smoking Status: Never smoker Assessment & Plan Assessment & Plan narrative: Ms. Dela Cruz is a 50W who is admitted to the hospital with acute respiratory failure secondary to COVID pneumonia 1. Acute respiratorry failure secondary to COVID pneumonia -she did not get a COVID vaccine -patient continues to be hypoxemic now even at rest, now on 3L of oxygen -will continue Decadron 6 mg per day, IV remdesivir 100 mg per day for full 5 day course or when the patient is no longer hypoxemic -continue as needed oxygen as needed -continue DVT prophylaxis 2. Hypertension -continue antihypertensive therapy FEN: Saline lock, Heart Healthy diet, CMP and magnesium in the am. Dispo: probable discharge to home Code Status: Full code, proxy is Rohit Quality VTE Deep Vein Thrombosis/Pulmonary Embolism Present on Admission: No
[2021-03-28] MEDS: LINEZOLID 600 MG/300 ML IV.SOLN IV (14:08)
[2021-03-28 14:28] LABS: pH VBG 7.39 (7.33-7.43)
[2021-03-28 14:29] LABS: HCO3 VBG 25 mmol/L (23-28); PCO2 VBG 41.3 mmHg (45-50); PO2 VBG 35 mmHg (35-45); Total CO2 VBG 26 mmol/L (24-29)
[2021-03-28 14:30] LABS: Oxygen Saturation VBG 67 % (70-75)
[2021-03-28] MEDS: ACETAMINOPHEN 325 MG TABLET 650 MG PO (14:31)
[2021-03-28] MEDS: REMDESIVIR 100 MG in SODIUM CHLORIDE 0.9% 230 ML 250 ML IV (21:33)
[2021-03-29] VITALS (23 sets, daily range): BP systolic 100–143; BP diastolic 57–75; PULSE 79–95; RESP 21–32; TEMP 36.6–37.3; O2SAT 82–99
--- NOTE | 2021-03-29 01:01 | RT ---
Paged by RN to assess pt. Pt desat to 83% on 2 LPM NC. RN increased to 4 LPM then to 6 LPM. Placed pt on 15 LPM NRB. Pt's SpO2 increased to 92%. RN aware.
[2021-03-29] MEDS: CODEINE/GUAIFENESIN LIQUID 5ML UDC 10 ML PO (01:06)
[2021-03-29] MEDS: LINEZOLID 600 MG/300 ML IV.SOLN IV ×2 (01:06→14:45)
[2021-03-29] MEDS: ALBUTEROL/IPRATROPIUM 3 ML AMPUL INH (02:35)
--- NOTE | 2021-03-29 03:27 | P.CALLCOV_ITS ---
Call Coverage Note Note Narrative of Care Provided: Due to patient's anxiety and desaturations, she needed to be placed on a non- rebreather mask. She does not prone when directed to and with activity desaturates. She is extremely anxious and has not slept nor does she accept cough medicine because she is afraid it will make her sleep. Recommended use of high flow heated O2, which necessitate moving her to the ICU.
--- NOTE | 2021-03-29 03:47 | PM.EVENT ---
Event Note Date Patient Seen: 03/29/21 Time Patient Seen: 03:47 Event Note: Due to patient's anxiety and oxygen desaturations, she needed to be placed on a non-rebreather mask. She does not prone when directed to and with activity desaturates. She is extremely anxious and has not slept nor does she accept cough medicine because she is afraid it will make her sleep. Recommended use of high flow heated O2, which necessitate moving her to the ICU. I am unable to appreciate any abnormal lung sounds given the limitations of the disposable stethescopes. She is awake, appears quite fatigued and anxious. Discussed the change in plans to move her to the ICU, encouraged her to prone when sleeping and to try to get some rest. We will obtain an EKG, VBG.
[2021-03-29] MEDS: LORazepam 2 MG/ML INJ 0.5 MG IV (04:16)
[2021-03-29 05:03] LABS: Hematocrit 35.8 % (36-46); Hemoglobin 11.9 g/dL (12.0-16.0); Mean Corpuscular HGB Conc 33.4 % (30-36); Mean Corpuscular Hemoglobin 29.3 PG (26-34); Mean Corpuscular Volume 87.9 fL (80-100); Platelet Count 288 X10^3/uL (150-400); Red Blood Cell Count 4.07 X10^6/uL (4.0-5.2); Red Cell Distribution Width 13.7 % (11.6-14.8); White Blood Cell Count 8.4 X10^3/uL (4.5-11.0)
[2021-03-29 05:12] LABS: BUN Creatinine Ratio 17.5 (6-22); Blood Urea Nitrogen 11 mg/dL (7-17); Calcium 8.2 mg/dL (8.4-10.2); Carbon Dioxide 28 mmol/L (22-32); Chloride 105 mmol/L (98-107); Estimated Glomerular Filt Rate > 60.0 mL/min (>60); Glucose 121 mg/dL (70-100); HEMOLYSIS < 15 (0-50); Potassium 3.5 mmol/L (3.4-5.1); Sodium 139 mmol/L (137-145)
[2021-03-29 05:20] LABS: HCO3 VBG 27 mmol/L (23-28); PCO2 VBG 41.4 mmHg (45-50); PO2 VBG 37 mmHg (35-45)
[2021-03-29 05:21] LABS: Oxygen Saturation VBG 72 % (70-75); Total CO2 VBG 28 mmol/L (24-29); pH VBG 7.42 (7.33-7.43)
[2021-03-29] MEDS: ENOXAPARIN 40 MG/0.4 ML SYRINGE SUBCUT (08:09)
[2021-03-29] MEDS: DEXAMETHASONE 10 MG/ML VIAL 6 MG IV (08:09)
[2021-03-29] MEDS: SODIUM CHLORIDE 0.9% FLUSH 10 ML IV ×2 (08:09→20:54)
[2021-03-29] MEDS: PANTOPRAZOLE DR 40 MG TABLET PO (08:09)
--- NOTE | 2021-03-29 13:35 | PM.PN.1 ---
Subjective Subjective Date Patient Seen: 03/29/21 Time Patient Seen: 08:35 Interval history: Overnight had respiratory distress and anxiety. Had low saturations and was placed on heated high flow nasal cannula with improvement in her sats to the mid 90s. Today she feels improved compared to overnight, but she is still quite short of breath. She has not been proning, despite being encouraged to do so. Exam Vital Signs (past 8 hours): - 03/29/21 05:45 03/29/21 06:00 03/29/21 07:20 Temperature 99.1 F 97.8 F Pulse Rate 83 83 93 H Respiratory Rate 21 22 26 H Blood Pressure 123/75 100/62 106/62 Pulse Oximetry 94 98 90 L 03/29/21 09:58 03/29/21 09:59 03/29/21 10:00 Temperature Pulse Rate 95 H 88 Respiratory Rate 24 22 Blood Pressure 101/57 L Pulse Oximetry 92 92 94 03/29/21 12:20 Temperature 98.2 F Pulse Rate 86 Respiratory Rate 23 Blood Pressure 101/57 L Pulse Oximetry 99 Fraction of Inspired Oxygen 90 Oxygen Delivery Method Heated High Flow Oxygen Flow Rate 40 Narrative Exam Narrative: General. no acute distress Lungs: Decreased breath sounds bilaterally, rhonchi on left lung Cardiac exam: Regular rate and rhythm with no murmurs Abdomen: Soft nontender nondistended Lower extremities: No edema Objective Labs Result Diagrams: 03/29/21 04:40 03/29/21 04:40 Labs: Laboratory Results - last 24 hr 03/28/21 03/29/21 03/29/21 14:05 04:40 04:40 WBC 8.4 RBC 4.07 Hgb 11.9 L Hct 35.8 L MCV 87.9 MCH 29.3 MCHC 33.4 RDW 13.7 Plt Count 288 VBG pH 7.39 VBG pCO2 41.3 L VBG pO2 35 VBG HCO3 25 VBG Total CO2 26 VBG O2 Saturation 67 L VBG Base Excess 0.0 Sodium 139 Potassium 3.5 Chloride 105 Carbon Dioxide 28 BUN 11 Creatinine 0.63 Estimated GFR > 60.0 BUN/Creatinine Ratio 17.5 Glucose 121 H Calcium 8.2 L 03/29/21 04:46 WBC RBC Hgb Hct MCV MCH MCHC RDW Plt Count VBG pH 7.42 VBG pCO2 41.4 L VBG pO2 37 VBG HCO3 27 VBG Total CO2 28 VBG O2 Saturation 72 VBG Base Excess 2.0 Sodium Potassium Chloride Carbon Dioxide BUN Creatinine Estimated GFR BUN/Creatinine Ratio Glucose Calcium PFSH Medical History Frequent UTI Heavy menstrual period History of frequent headaches Surgical History Anesthesia History of removal of cyst Status post delivery (~1989) Status post tubal ligation (~1994) Family History Father Age: 82 Cancer Hypertension Mother Age: 78 Cancer Hypertension High cholesterol Grandfather Cancer Grandmother Heart disease Social History household members: spouse Smoking Status: Never smoker Assessment & Plan Assessment & Plan narrative: Ms. Dela Cruz is a 50W who is admitted to the hospital with acute respiratory failure secondary to COVID pneumonia 1. 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 Hypertension -continue antihypertensive therapy 3. Staph bacteremia -only in one blood culture, possibly a contaminant -for now on antibiotics, with surveillance cultured ordered -will dc antibiotics if surveillance culture returns negative FEN: Saline lock, Heart Healthy diet Dispo: probable discharge to home Code Status: Full code, proxy is Rohit Quality VTE Deep Vein Thrombosis/Pulmonary Embolism Present on Admission: No
[2021-03-29] MEDS: LIDOCAINE 1% 20 ML (14:40)
--- NOTE | 2021-03-29 15:12 | PC.NURSE ---
Am shift Pt is flat affect, difficult to get much out of during assessment, needs consistent encouragement for participation in care. Weak IS attempts, 250-300. New PIV placed to LFA, as AC painful and leaking. Heated hi flow NC @ 40L and 90% Fio02 all day. @ 1430 RT into see patient and adjusted down to 75% Fio2 and 45L Spo2 94% reports ease of breathing. Up in chair most of shift, Reporting back pain, will discuss lidocaine patch or heated pad for comfort,.
[2021-03-29] MEDS: LIDOCAINE PATCH 1 EACH ADH..PATCH TOP (18:58)
[2021-03-29] MEDS: MELATONIN 3 MG TABLET PO (20:52)
[2021-03-29] MEDS: REMDESIVIR 100 MG in SODIUM CHLORIDE 0.9% 230 ML 250 ML IV (20:54)
--- NOTE | 2021-03-29 21:34 | PC.NURSE ---
Pt on heated high flow nasal cannula at 45L and 75% FiO2 with saturations 90-95%. Pt encouraged to prone, side-lie, use IS, deep breath and cough. Pt assisted to bedside commode four times during shift, had a small formed BM. v/s stable outside of oxygen saturation, afebrile, NSR in the 70s-80s. Pt c/o low back/sacral pain from being in the bed and chair; lidocaine patch ordered and applied to low back and waffle cushion on bed. Patient sat up to chair until 2119.
[2021-03-30] VITALS (40 sets, daily range): BP systolic 70–129; BP diastolic 48–75; PULSE 68–100; RESP 10–42; TEMP 36.9; O2SAT 82–100
[2021-03-30] MEDS: SODIUM CHLORIDE 0.9% FLUSH 10 ML IV ×2 (01:24→08:06)
[2021-03-30] MEDS: LINEZOLID 600 MG/300 ML IV.SOLN IV (01:24)
[2021-03-30 05:24] LABS: Add Manual Diff / Slide Review NO; Basophils Absolute Auto 0 /uL (0-100); Basophils Percent Auto 0.4 % (0-2); Eosinophils Absolute Auto 0 /uL (0-450); Hematocrit 35.3 % (36-46); Lymphocytes Absolute Auto 900 /uL (1100-4500); Lymphocytes Percent Auto 10.9 % (25-40); Mean Corpuscular HGB Conc 33.9 % (30-36); Mean Corpuscular Hemoglobin 29.4 PG (26-34); Mean Corpuscular Volume 86.8 fL (80-100); Monocytes Absolute Auto 800 /uL (0-900); Monocytes Percent Auto 9.3 % (3-14); Neutrophils Absolute Auto 6800 /uL (1500-7000); Neutrophils Percent Auto 79.4 % (50-75); Platelet Count 363 X10^3/uL (150-400); Red Blood Cell Count 4.07 X10^6/uL (4.0-5.2); Red Cell Distribution Width 13.4 % (11.6-14.8); White Blood Cell Count 8.5 X10^3/uL (4.5-11.0)
[2021-03-30 05:34] LABS: BUN Creatinine Ratio 21.8 (6-22); Blood Urea Nitrogen 12 mg/dL (7-17); Calcium 8.2 mg/dL (8.4-10.2); Carbon Dioxide 27 mmol/L (22-32); Chloride 107 mmol/L (98-107); Estimated Glomerular Filt Rate > 60.0 mL/min (>60); Glucose 109 mg/dL (70-100); HEMOLYSIS 18 (0-50); Potassium 3.9 mmol/L (3.4-5.1); Sodium 140 mmol/L (137-145)
--- NOTE | 2021-03-30 05:59 | PC.NURSE ---
Pt. denies pain, was administered Lidocaine patch to lumbar area on pm shift. Pt. is afebrile, B/P WNL, HR on tele shows NSR. Pt. remains dependent on heated hiflow at 45L 02 and 80% Fi02, 02 Sats in the low to mid 90's, does desats to the low 80's with BSC use and after coughing. Pt. has a dry non productive cough, lung sounds diminished throughout with crackles from mid down to the bases bilaterally. Encourage to prone but pt. declined stating she can't breathe with proning and taking deep breaths make her cough. Cont. to encourage and treat her PNA.
[2021-03-30] MEDS: PANTOPRAZOLE DR 40 MG TABLET PO (06:22)
[2021-03-30 06:50] LABS: Lactate Dehydrogenase 1043 U/L (313-618)
[2021-03-30] MEDS: ENOXAPARIN 40 MG/0.4 ML SYRINGE SUBCUT (08:04)
[2021-03-30] MEDS: DEXAMETHASONE 10 MG/ML VIAL 6 MG IV (08:04)
[2021-03-30] MEDS: ACETAMINOPHEN 325 MG TABLET 650 MG PO (08:06)
--- NOTE | 2021-03-30 08:49 | PC.NURSE ---
Addendum entered by Chayo Minaya R.N. 03/30/21 15:49: Late entry:Patient with substantial desat with extended recovery from simple pivot transfer to [facility]. 75 Spo2 for well over 20 min, RR 33+ with significant panic at SOB. RT at bedside and decision to made to intubate at bedside. Dr Davis into facilitate, 80 Succ, 160 propofol, and 100 mcg of fent. 7.5 ETT 21 at the teeth. R triple IJ placed at bedside, chest xray confirmed placement. PIV R hand, Vent settings 60% Fio2, 8 PEEP, 380TV and rate of 18. Sedation Propofol and Fentanyl, Pt BP not tolerating Propofol well. 1440 Norepi started @ 4mcg for increased sedation needs for transport. Pt set up for transport to [facility]. Airlift transport team arrived and report given to Theresa adams RN Covid unit. Original Note: AM Shift Pt remains on 80% Fio2 and 45L HHFNC, weakly using I.s with encouragement from staff, really only hitting 250 at highest for I.s. Acapella at bedside, Pt continues with flat affect, discussing POC for today, expressed concern about needs for increasing O2 and potential for higher level of care, potentially intubation. Pt remains flat, but does appear more anxious. Updating family on facetime call in room. Pt was willing to attempt to prone after call, and update from Hospitalist. Also agreeable to ABG, after multiple refusals over last 24 hours. RT adjusting settings after ABG, 50L 80% fio2. Pt is cooperative with assist to Prone and verbalizes understanding of importance for improved outcome. Urine appears concentrated and clear, enc PO intake.
[2021-03-30 11:09] LABS: Fractionated Inspired Oxygen 80; HCO3 ABG 27 mmol/L (22-26); Oxygen Saturation ABG 88 % (95-100); PCO2 ABG 39.6 mmHg (35-45); PO2 ABG 52 mmHg (80-100); TCO2 ABG 28 mmol/L (21-31); pH ABG 7.44 (7.35-7.45)
[2021-03-30] MEDS: fentaNYL 1,000 MCG in DEXTROSE 5% IN WATER 230 ML 14.525 ML IV (12:25)
--- NOTE | 2021-03-30 13:30 | DI.RAD.S_ITS ---
PROCEDURE: XR CHEST 1V INDICATIONS: Central line placement and ET tube placement TECHNIQUE: One view of the chest was acquired. COMPARISON: [facility], CR, XR CHEST 1V, 03/25/2021, 18:12. [facility], CR, XR CHEST 2V, 03/11/2019, 11:32. [facility], CR, CHEST 2 VIEW, 06/08/2017, 23:00. [facility], CR, CHEST 1 VIEW, 01/14/2017, 7:35. [facility], CR, XR CHEST 1V, 03/28/2021, 9:26. FINDINGS: Surgical changes and devices: ET tube tip approximately 2.3 cm above the sidney. Central line projects to proximal right atrium. Consider slight retraction. Lungs and pleura: Worsening bilateral airspace consolidation. No pleural effusions or pneumothorax. Mediastinum: Question right hilar adenopathy. Heart size is normal. Bones and chest wall: No suspicious bony lesions. Overlying soft tissues appear unremarkable. IMPRESSION: 1. Suggest slight retraction of central line. 2. Worsening bilateral airspace in solid a freedman. 3. Question right hilar adenopathy. Comment: Chest CT may be helpful. Dictated by: Denver Rangel M.D. on 03/30/2021 at 13:07 Approved by: Denver Rangel M.D. on 03/30/2021 at 13:17
--- NOTE | 2021-03-30 13:30 | PM.PROC.1 ---
Procedures Date/Time Date of procedure: 03/30/21 Time of procedure: 13:00 Intubation Time out performed: Yes Sedative: other (fentanyl 100mcg, propofol 160mg, 2% lidocaine 4mL) Paralytic: succinylcholine Mg given: 80 Laryngoscope: fiber optic video scope ET tube size: 7 ET tube uncuffed: Yes Tube secured depth (cm): 21 Tube secured location: teeth Tube placement confirmation: visualized tube passing through cords and confirmation by capnometry Patient tolerated procedure: well Intubation complications: none
--- NOTE | 2021-03-30 13:32 | PM.PROC.1 ---
Procedures Central Line Placement Time out performed: No (post-intubation, remained in room, COVID+ respiratory failure) Patient placed on monitor/pulse ox: Yes MD prep: mask, gown and gloves Central line prep: Chlorhexidine scrub and sterile drapes applied Local anesthesia used: other anesthetic (skin wheal 2%lido, general anesthesia, post-intubation, propofol gtt) Ultrasound used for placement: Yes Central line lumen inserted: triple Post procedure: sutured in place, good blood return, all ports aspirated, flushed, capped and sterile dressing applied Patient tolerated procedure: well Complications: none
--- NOTE | 2021-03-30 13:41 | PM.PROC.1 ---
Procedures Date/Time Date of procedure: 03/30/21 Time of procedure: 13:20 Central Line Placement Time out performed: No (post-intubation, remained in room) Patient placed on monitor/pulse ox: Yes MD prep: mask, gown and gloves Central line prep: Chlorhexidine scrub Local anesthesia used: other anesthetic (2%lidocaine skin wheal, general anesthesia post-intubation, propofol gtt) Ultrasound used for placement: Yes Central line lumen inserted: triple Post procedure: sutured in place, good blood return, all ports aspirated, flushed, capped and sterile dressing applied Post procedure x-ray: tip of catheter in good position and no pneumothorax seen Patient tolerated procedure: well Complications: none
[2021-03-30 13:53] LABS: pH ABG 7.44 (7.35-7.45)
[2021-03-30 13:54] LABS: Fractionated Inspired Oxygen 70; HCO3 ABG 25 mmol/L (22-26); Oxygen Saturation ABG 95 % (95-100); PCO2 ABG 36.2 mmHg (35-45); PO2 ABG 73 mmHg (80-100); TCO2 ABG 26 mmol/L (21-31)
--- NOTE | 2021-03-30 14:10 | PM.DS.1 ---
History of Present Illness History of Present Illness Date Patient Seen: 03/30/21 Time Patient Seen: 14:10 Chief complaint: Difficulty breathing, covid + Narrative: Per Tameka Matt: Joycelyn Dela Cruz is a 50-year-old non-smoking female who developed fever, sweats, cough, shortness of breath all of her body aches and chest pain. She began to feel ill 4 days ago and went to the pharmacy and was tested there and found she was positive as of Wednesday of this week. She continues to feel weak has a mild headache, sore throat cough. She denies any nausea vomiting, dysuria, diarrhea or constipation. She did contact EMS and they found her to have increased work of breathing and required 4 L of oxygen during transport to the hospital. Her adult children had traveled to [place] and then [place] and she believes that she contracted it from them even though they have not tested positive. Her is apparently positive with COVID as well as multiple members of their taoist. She and her are not vaccinated and do not intend to get the vaccinations because they did feel that not enough is known about vaccinations. Chest x-ray ordered in the ED was read as the following ?Bibasilar retrocardiac opacities most suspicious for pneumonia. Recommend interval follow up after appropriate therapy to document resolution exclude presence of underlying mass lesion. Patient's T-max was 100.7? and it is currently 98.4, her blood pressure is 96/56, heart rate 73, respiratory rate 21, oxygen saturation of 92% on room air she weighs 81.1 kg with a BMI of 33.8. Her CBC is unremarkable, D-dimer was normal at 222, ABG pH was 7.47, pCO2 31, PO2 58, bicarb 22, total CO2 23, ABG oxygen saturation 92%, glucose is mildly elevated at 120, ferritin is elevated at 458, AST 39, C-reactive protein is elevated at 7.8, and procalcitonin was 0.6, COVID 19 PCR was positive. Discharge Providers Provider Date of admission: 03/25/21 20:34 Discharge Date: 03/30/21 Primary care physician: Hardeep Longoria ND Consults: 03/25/21 21:46 Consult to Respiratory Therapy Evaluate & Treat Comment: COVID-19 Physician Instructions: Evaluate and treat Discharge provider: Amado Munoz MD Summary Hospital Course Discharge Diagnosis: 1. Acute respiratory failure, ARDS, secondary to COIVD pneumonia 2. Asthma 3. Elevated blood pressure, not on medication 4. Staph hominis positive blood culture, in one draw likely contaminant Hospital Course: Please see H and P for full details. Essentially Ms. Dela Cruz was initially beginning to feel ill approximately 03/21, and went to the pharmacy on 03/23 and was found to have COVID pneumonia She was having fevers to 100.7, initial chest xray showed bilateral opacities consistent with pneumonia. She was again COVID positive on admission. She was initially requiring 3-4L of oxygen. She was started on IV remdesivir and IV dexamethasone the night of 03/25. She remained stable until the morning of 03/29 when she began to be more short of breath, requiring higher oxygen levels. She was placed on heated high flow initially with 40L and 80% FiO2. She was initally weaned down to 70% FiO2, but 24 hours later on 03/30 she began to have worsening shortness of breath, coughing, she began to desaturate even on 50L and 80% FiO2. Decision was made to intubate. She was placed on tidal volume 380, respiratory rate 18, 8 PEEP, 70% FiO2. ABG showed pH 7.44 Pco2 36 PO2 73 HCO3 25. FiO2 decreased to 65% and she remained with O2 sat of 98% on discharge. She had R central line placed. She was placed on propofol and fentanyl for sedation. She did have pressures drop while on propofol to MAP of 60-65 and was ordered and started on levophed. Chest xray showed ET tube at 2-3cm above sidney and central line projecting to border of right atrium per my read. She also had worsening bilateral airspace opacities. She had ariza placed. Her Rohit Dela Cruz was called and agreed with transfer of patient. She was transferred to higher level of care with pulmonology. Of note patient did have initial blood culture which initially showed staph in 2/4 bottles on one draw on 03/25. Her other blood culture draw was negative for 4 days, and she had surveillance culture that was negative for 48 hours. Her micro grew back staph hominis and as it appeared in only one draw was thought to be a contaminant. She was initially on antibiotics with linezolid until 03/30 when they were stopped due to final results. Her sensis did showed sensitivity to daptomycin, vancomycin, ciprofloxacin, linezolid. Code: Full code Contact: Rohit Dela Cruz , , Status at Discharge Cognitive/behavioral status at discharge: confused Overall status at discharge: patient is not back to baseline Time Spent with Patient Time spent: Greater than 30 minutes Exam Vital Signs (past 8 hours): - 03/30/21 06:19 03/30/21 07:50 03/30/21 08:49 Temperature 98.5 F Pulse Rate 71 85 91 H Respiratory Rate 27 H 28 H 28 H Blood Pressure 99/65 108/66 Pulse Oximetry 97 97 91 03/30/21 09:45 Temperature Pulse Rate Respiratory Rate Blood Pressure Pulse Oximetry 95 Fraction of Inspired Oxygen 83 Oxygen Delivery Method Heated High Flow Oxygen Flow Rate 45 Narrative Exam Narrative: General: intubated and sedated HEENT: moist mucous membranes, no JVD NECK: R CVL sutured in place Lungs: Decreased breath sounds bilaterally, coarse rhonchi bilaterally, intubated Cardiac exam: Regular rate and rhythm with no murmurs Abdomen: Soft nontender nondistended Lower extremities: No edema NEURO: sedated, moving all extremities Objective Labs Result Diagrams: 03/30/21 05:10 03/30/21 05:10 Labs: Laboratory Results - last 24 hr 03/30/21 03/30/21 03/30/21 05:10 05:10 05:10 WBC 8.5 RBC 4.07 Hgb 12.0 Hct 35.3 L MCV 86.8 MCH 29.4 MCHC 33.9 RDW 13.4 Plt Count 363 Neut % (Auto) 79.4 H Lymph % (Auto) 10.9 L Merrick % (Auto) 9.3 Eos % (Auto) 0.0 L Baso % (Auto) 0.4 Neut # (Auto) 6800 Lymph # (Auto) 900 L Merrick # (Auto) 800 Eos # (Auto) 0 Baso # (Auto) 0 ABG pH ABG pCO2 ABG pO2 ABG HCO3 ABG Total CO2 ABG O2 Saturation ABG Base Excess FiO2 Sodium 140 Potassium 3.9 Chloride 107 Carbon Dioxide 27 BUN 12 Creatinine 0.55 Estimated GFR > 60.0 BUN/Creatinine Ratio 21.8 Glucose 109 H Calcium 8.2 L Lactate Dehydrogenase 1043 H D 03/30/21 03/30/21 09:07 13:26 WBC RBC Hgb Hct MCV MCH MCHC RDW Plt Count Neut % (Auto) Lymph % (Auto) Merrick % (Auto) Eos % (Auto) Baso % (Auto) Neut # (Auto) Lymph # (Auto) Merrick # (Auto) Eos # (Auto) Baso # (Auto) ABG pH 7.44 7.44 ABG pCO2 39.6 36.2 ABG pO2 52 L 73 L ABG HCO3 27 H 25 ABG Total CO2 28 26 ABG O2 Saturation 88 L 95 ABG Base Excess 3.0 H 1.0 FiO2 80 70 Sodium Potassium Chloride Carbon Dioxide BUN Creatinine Estimated GFR BUN/Creatinine Ratio Glucose Calcium Lactate Dehydrogenase PFSH Medical History Frequent UTI Heavy menstrual period History of frequent headaches Surgical History Anesthesia History of removal of cyst Status post delivery (~1989) Status post tubal ligation (~1994) Family History Father Age: 82 Cancer Hypertension Mother Age: 78 Cancer Hypertension High cholesterol Grandfather Cancer Grandmother Heart disease Social History household members: spouse Smoking Status: Never smoker Discharge Plan Discharge Plan Patient Disposition: [facility] Other facility: [facility] Under care of provider: Dr. Loving Provider Discharge Comment: transfer higher level of care ARDS, acute respiratory failure, COVID pneumonia Diet/Activity/Treatments Diet: Nothing by Mouth Discharge Data Primary Care Provider: Hardeep Longoria VTE Deep Vein Thrombosis/Pulmonary Embolism Present on Admission: No
[2021-03-30] MEDS: NOREPINEPHRINE 4 MG in DEXTROSE 5% IN WATER 250 ML 15.24 ML IV (14:12)
[2021-03-30] MEDS: propofoL 1,000 MG/100 ML VIAL 12.45 MG IV (14:14)
--- NOTE | 2021-03-30 15:36 | CM.DPNOTE ---
Patient's medical status declining today so intubated and scheduled to be flown to high level of care for continued management of COVID-19 related pneumonia. JW
[2021-03-30] MEDS: propofoL 1,000 MG/100 ML VIAL 22 MG IV (16:04)
== END 2021-03-30 16:07 | disposition short-term general hospital (02) | DRG 137 ==
LOC: ED 19:49 → AC 22:13 → ICU 03-26 01:56 → AC 04-01 11:04 → ICU 04-01 11:05
PROVIDERS: Emergency Medicine; Internal Medicine; Admitting Provider Nurse Practitioner Family; Emergency Provider Emergency Medicine; PCP Naprapath; Referring Provider Emergency Medicine; Visit Provider Nurse Practitioner Family
DX: U07.1 COVID-19 (principal); J12.82 Pneumonia due to coronavirus disease 2019; I10 Essential (primary) hypertension; J45.909 Unspecified asthma, uncomplicated; F41.9 Anxiety disorder, unspecified; J80 Acute respiratory distress syndrome; R03.0 Elevated blood-pressure reading, without diagnosis of hypertension
CPT/HCPCS: 36415; 36592; 36600; 71045; 80048; 80053; 80076; 82550; 82728; 82805; 83605; 83615; 83880; 84145; 84484; 85025; 85027; 85379; 86140; 87040; 87150; 87186; 87205; 87635; 87797; 93005; 93010; 94002; 94640; 94760; 94762; 94799; 96361; 96365; 96366; 96375; 99285; C9803; J1100; J1650; J1885; J2020; J2060; J2405; J2704; J3010

== ENCOUNTER → 2021-05-16 12:34 | Outpatient (CLI) | payer OTHER, MEDICAID, SELFPAY ==
[2021-03-26 00:30] VITALS: BMI 33.8
[2021-03-30 12:53] VITALS: PULSE 77; RESP 18
[2021-03-30 13:26] VITALS: O2SAT 93
--- NOTE | 2021-05-16 | DI.RAD.S_ITS ---
PROCEDURE: XR CHEST 2V INDICATIONS: Personal history of COVID-19 TECHNIQUE: 2 views of the chest were acquired. COMPARISON: [facility], , XR CHEST 1V, 03/30/2021, 13:33. FINDINGS: Surgical changes and devices: None. Lungs and pleura: Lung volumes are low. Diffuse, widespread bilateral mid and lower lobe of the liver airspace opacities are present decreased from prior examination dated 03/30/2021. No pleural effusions or pneumothorax. Mediastinum: Mediastinal contours are normal. Heart size is normal. Bones and chest wall: No suspicious bony abnormalities. Soft tissues appear unremarkable. IMPRESSION: Decreasing bilateral multifocal pneumonia which has not entirely resolved Dictated by: Kvng Rajput RRA Interpreted: Glenn Robbins MD on 05/16/2021 at 13:30 Transcribed by: REMIGIO on 05/16/2021 at 13:31 Approved by: Glenn Robbins M.D. on 05/16/2021 at 13:40
== END ==
PROVIDERS: PCP Naprapath; Referring Provider Naprapath; Visit Provider Naprapath
DX: J12.82 Pneumonia due to coronavirus disease 2019 (principal)
CPT/HCPCS: 71046

== ENCOUNTER → 2021-06-18 10:05 | Outpatient (CLI) | payer OTHER, MEDICAID, SELFPAY ==
[2021-03-26 00:30] VITALS: BMI 33.8
[2021-03-30 12:53] VITALS: PULSE 77; RESP 18
[2021-03-30 13:26] VITALS: O2SAT 93
--- NOTE | 2021-06-18 | DI.RAD.S_ITS ---
PROCEDURE: XR CHEST 2V INDICATIONS: Personal history of COVID-19 TECHNIQUE: 2 views of the chest were acquired. COMPARISON: [facility], , XR CHEST 2V, 05/16/2021, 13:09. FINDINGS: Surgical changes and devices: None. Lungs and pleura: Improved aeration of the right lower lobe since the prior study, with mild residual patchy opacities. No pleural effusions or pneumothorax. Mediastinum: Mediastinal contours are normal. Heart size is normal. Bones and chest wall: No suspicious bony abnormalities. Soft tissues appear unremarkable. IMPRESSION: Improvement in right lower lobe opacity since 05/16/21. No new focal consolidation. Dictated by: Scottie Matt M.D. on 06/18/2021 at 12:42 Approved by: Scottie Matt M.D. on 06/18/2021 at 12:42
== END ==
PROVIDERS: PCP Naprapath; Referring Provider Naturopath; Visit Provider Naturopath
DX: Z86.16 Personal history of COVID-19 (principal)
CPT/HCPCS: 71046

== ENCOUNTER 2022-05-11 11:34 | Emergency (ER) | payer OTHER, MEDICAID, SELFPAY ==
[2021-03-26 00:30] VITALS: BMI 33.8
[2021-03-30 12:53] VITALS: PULSE 77; RESP 18
[2021-03-30 13:26] VITALS: O2SAT 93
[2022-05-11] VITALS (12 sets, daily range): BP systolic 144–169; BP diastolic 80–106; PULSE 92–108; RESP 16–24; TEMP 36.8–37.9; O2SAT 96–98; BMI 34.2
--- NOTE | 2022-05-11 11:47 | DI.RAD.S_ITS ---
PROCEDURE: XR CHEST 2V INDICATIONS: shortness of breath TECHNIQUE: 2 views of the chest were acquired. COMPARISON: [facility], CR, XR CHEST 2V, 06/18/2021, 10:17. FINDINGS: Surgical changes and devices: None. Lungs and pleura: Lungs are clear. No pleural effusions or pneumothorax. Mediastinum: Mediastinal contours are normal. Heart size is normal. Bones and chest wall: No suspicious bony abnormalities. Soft tissues appear unremarkable. IMPRESSION: No acute cardiopulmonary findings. Dictated by: Lizbeth Shin M.D. on 05/11/2022 at 12:37 Approved by: Lizbeth Shin M.D. on 05/11/2022 at 12:38
[2022-05-11 12:07] LABS: COVID19 -Nasal RAPID Negative (Negative)
[2022-05-11 12:11] LABS: Add Manual Diff / Slide Review NO; Basophils Absolute Auto 0 /uL (0-100); Basophils Percent Auto 0.6 % (0-2); Eosinophils Absolute Auto 100 /uL (0-450); Eosinophils Percent Auto 1.7 % (2-4); Hematocrit 39.7 % (36-46); Hemoglobin 13.8 g/dL (12.0-16.0); Lymphocytes Absolute Auto 1500 /uL (1100-4500); Lymphocytes Percent Auto 23.6 % (25-40); Mean Corpuscular HGB Conc 34.7 % (30-36); Mean Corpuscular Hemoglobin 30.1 PG (26-34); Mean Corpuscular Volume 86.7 fL (80-100); Monocytes Absolute Auto 500 /uL (0-900); Monocytes Percent Auto 8.5 % (3-14); Neutrophils Absolute Auto 4000 /uL (1500-7000); Neutrophils Percent Auto 65.6 % (50-75); Platelet Count 287 X10^3/uL (150-400); Red Blood Cell Count 4.58 X10^6/uL (4.0-5.2); Red Cell Distribution Width 13.4 % (11.6-14.8); White Blood Cell Count 6.2 X10^3/uL (4.5-11.0)
[2022-05-11 12:19] LABS: Alanine Aminotransferase 23 IU/L (<35); Albumin 4.4 g/dL (3.5-5.0); Albumin Globulin Ratio 1.2 (1.0-2.8); Alkaline Phosphatase 56 U/L (38-126); Aspartate Aminotransferase 22 IU/L (14-36); BUN Creatinine Ratio 16.9 (6-22); Bilirubin Total 1.1 mg/dL (0.2-1.3); Blood Urea Nitrogen 13 mg/dL (7-17); Calcium 8.7 mg/dL (8.4-10.2); Carbon Dioxide 27 mmol/L (22-32); Chloride 104 mmol/L (98-107); Creatine Kinase 81 U/L (30-135); Estimated Glomerular Filt Rate > 60 mL/min (>60); Globulin 3.6 g/dL (1.7-4.1); Glucose 131 mg/dL (70-100); HEMOLYSIS < 15 (0-50); Lactate (Lactic Acid) 1.7 mmol/L (0.7-2.1); Sodium 139 mmol/L (137-145)
[2022-05-11 12:31] LABS: NT-proBNP (BNP-Adult 18+) 31 pg/mL (<125); Troponin I < 0.012 ng/mL (0.01-0.034)
--- NOTE | 2022-05-11 15:26 | PC.NURSE ---
Pt reports runny nose, productive cough, headache, congestion, chest pain with coughing, diarrhea and lower left back pain for the past 3 days. Pt reports hx of covid in March of 2021 with intubation. Reports hx of asthma and being out my albuterol. Reports taking left over amoxicillin x4 since not feeling well.
--- NOTE | 2022-05-11 16:12 | ED.SOB ---
HPI - SOB/Dyspnea <JAYNE Ellis - Last Filed: 05/11/22 17:50> General Chief Complaint: Shortness of Breath/Dyspnea Stated Complaint: Trouble breathing Time Seen by Provider: 05/11/22 11:59 Source: patient Mode of arrival: Ambulatory Limitations: no limitations History of Present Illness HPI Narrative: 51-year-old female, nonsmoker with history of asthma, presents emergency department with cough and congestion x3 days. Patient has some mild maxillary sinus pressure, postnasal drainage, ear fuzziness, wheezing and nonproductive cough. Patient has been taking Mucinex with no improvement. History of COVID-19 that required hospitalization and ventilation. Patient has mild metallic taste in her mouth. Patient does have a albuterol inhaler at home, but it has . Patient has not a been around anyone sick other than her , who has been sick with a cough. Related Data Previous Rx's Medication Instructions Recorded albuterol sulfate 90 mcg/actuation 2 puff inhalation Q4-6H PRN 03/11/19 aerosol inhaler shortness of breath or wheezing #8.5 grams albuterol sulfate 90 mcg/actuation 2 puff inhalation Q6H PRN 05/11/22 aerosol inhaler (ProAir HFA) shortness of breath, cough or wheezing #6.7 grams prednisone 20 mg tablet 40 mg PO DAILY asthma exacerbation 05/11/22 5 days #10 tabs Allergies Allergy/AdvReac Type Severity Reaction Status Date / Time chocolate flavor Allergy Unknown Verified 02/06/21 12:37 [CHOCOLATE FLAVOR] adhesive tape [ADHESIVE TAPE] AdvReac Intermediate Verified 02/06/21 12:37 latex [LATEX] AdvReac Intermediate Verified 02/06/21 12:37 Review of Systems <JAYNE Ellis - Last Filed: 05/11/22 17:50> Review of Systems Narrative: Narrative: GENERAL: Denies chills, fatigue, fever, sweats. See HPI HEENT: Denies difficulty swallowing, dizziness. Endorses mild sore throat and sinus pressure. RESPIRATORY: Denies dyspnea, sputum. CARDIOVASCULAR: Denies chest pain, palpitations, edema. GASTROINTESTINAL: Denies nausea, vomiting, abdominal pain, diarrhea, constipation. : Denies dysuria, frequency, incontinence, hematuria, urinary retention, flank pain. MSK: Denies weakness, joint pain, or bony pain. SKIN: Denies rash, skin lesions, or pruritis. NEUROLOGIC: Denies weakness, dizziness, headache, numbness, confusion. PSYCHIATRIC: No concerning psychosocial issues. Patient History <JAYNE Ellis - Last Filed: 05/11/22 17:50> Medical History (Updated 05/11/22 @ 17:46 by JAYNE Ellis) Frequent UTI Heavy menstrual period History of frequent headaches Surgical History Anesthesia History of removal of cyst Status post delivery (~1989) Status post tubal ligation (~1994) Family History Father Age: 83 Cancer Hypertension Mother Age: 79 Cancer Hypertension High cholesterol Grandfather Cancer Grandmother Heart disease Social History household members: spouse Smoking Status: Never smoker Smoking Status: Never smoker alcohol intake frequency: holidays/special occasions only Substance Use Type: does not use Exam <JAYNE Ellis - Last Filed: 05/11/22 17:50> Narrative Exam Narrative: Exam Narrative: GENERAL: This is a well-nourished, well-developed patient, in no acute distress HEAD: Atraumatic. Normocephalic. EYES: Pupils equal round and reactive. Extraocular motions intact. No scleral icterus, injection or drainage. ENT: Nose without bleeding, purulent drainage. Throat with mild erythema, no tonsillar hypertrophy. Positive postnasal drainage. Airway patent. NECK: Trachea midline. No JVD or lymphadenopathy. Nontender. CARDIOVASCULAR: Regular rate and rhythm without murmurs, peripheral pulses intact, cap refill <2 sec. RESPIRATORY: Breath sounds equal bilaterally. Positive wheezes bilaterally but no rales, or rhonchi. Positive nonproductive cough. No increased respiratory effort. No accessory muscle use. GASTROINTESTINAL: Abdomen soft, non-tender, nondistended without guarding or rebound. No suprapubic pain. MSK: Moves all extremities. Normal range of motion, no clubbing or edema. Neurovascularly intact. NEURO: A&O x 3. SKIN: Warm, dry, no rashes or lesions noted. Initial Vital Signs Initial Vital Signs: Vital Signs Temperature 98.2 F 05/11/22 11:41 Pulse Rate 92 H 05/11/22 11:41 Respiratory Rate 20 05/11/22 11:41 Blood Pressure 164/102 H 05/11/22 11:41 Pulse Oximetry 98 05/11/22 11:41 Oxygen Delivery Method 05/11/22 11:41 Reviewed <Sola Sullivan DO - Last Filed: 05/15/22 08:30> Initial Vital Signs Initial Vital Signs: Vital Signs Temperature 98.2 F 05/11/22 11:41 Pulse Rate 92 H 05/11/22 11:41 Respiratory Rate 20 05/11/22 11:41 Blood Pressure 164/102 H 05/11/22 11:41 Pulse Oximetry 98 05/11/22 11:41 Oxygen Delivery Method 05/11/22 11:41 Course <JAYNE Ellis - Last Filed: 05/11/22 17:50> Orders Ordered: Discontinued Medications Albuterol/Ipratropium (Albuterol/Ipratropium 3 Ml Ampul) 3 ml INH NOW ONE Stop: 05/11/22 16:29 Last Admin: 05/11/22 16:56 Dose: 3 ml Documented By: ANGELA Vital Signs Vital signs: Vital Signs - 8 hr 05/11/22 11:41 05/11/22 15:16 05/11/22 15:19 Temperature 98.2 F Pulse Rate 92 H 108 H 100 H Respiratory Rate 20 16 Blood Pressure 164/102 H Pulse Oximetry 98 98 Oxygen Delivery Method Room Air 05/11/22 15:19 05/11/22 15:21 05/11/22 15:21 Temperature Pulse Rate 96 H Respiratory Rate 17 Blood Pressure 155/102 H 148/94 H Pulse Oximetry 97 Oxygen Delivery Method 05/11/22 15:30 05/11/22 15:30 05/11/22 16:00 Temperature Pulse Rate Respiratory Rate 24 Blood Pressure 169/105 H 154/81 H Pulse Oximetry Oxygen Delivery Method 05/11/22 16:00 Temperature Pulse Rate 96 H Respiratory Rate 17 Blood Pressure Pulse Oximetry 97 Oxygen Delivery Method Room Air <Sola Sullivan DO - Last Filed: 05/15/22 08:30> Orders Ordered: Discontinued Medications Albuterol/Ipratropium (Albuterol/Ipratropium 3 Ml Ampul) 3 ml INH NOW ONE Stop: 05/11/22 16:29 Last Admin: 05/11/22 16:56 Dose: 3 ml Documented By: ANGELA Vital Signs Vital signs: Vital Signs - 8 hr 05/11/22 11:41 05/11/22 15:16 05/11/22 15:19 Temperature 98.2 F Pulse Rate 92 H 108 H 100 H Respiratory Rate 20 16 Blood Pressure 164/102 H Pulse Oximetry 98 98 Oxygen Delivery Method Room Air 05/11/22 15:19 05/11/22 15:21 05/11/22 15:21 Temperature Pulse Rate 96 H Respiratory Rate 17 Blood Pressure 155/102 H 148/94 H Pulse Oximetry 97 Oxygen Delivery Method 05/11/22 15:30 05/11/22 15:30 05/11/22 16:00 Temperature Pulse Rate Respiratory Rate 24 Blood Pressure 169/105 H 154/81 H Pulse Oximetry Oxygen Delivery Method 05/11/22 16:00 Temperature Pulse Rate 96 H Respiratory Rate 17 Blood Pressure Pulse Oximetry 97 Oxygen Delivery Method Room Air MDM - SOB/Dyspnea <JAYNE Ellis - Last Filed: 05/11/22 17:50> Differential Diagnosis Differential diagnosis: Likely asthma with exacerbation Lab Data Result diagrams: 05/11/22 11:55 05/11/22 11:55 Labs: Lab Results 05/11/22 05/11/22 05/11/22 Range/Units 11:48 11:55 11:55 WBC 6.2 (4.5-11.0) X10^3/uL RBC 4.58 (4.0-5.2) X10^6/uL Hgb 13.8 (12.0-16.0) g/dL Hct 39.7 (36-46) % MCV 86.7 (80-100) fL MCH 30.1 (26-34) PG MCHC 34.7 (30-36) % RDW 13.4 (11.6-14.8) % Plt Count 287 (150-400) X10^3/uL Neut % (Auto) 65.6 (50-75) % Lymph % (Auto) 23.6 L (25-40) % [place] % (Auto) 8.5 (3-14) % Eos % (Auto) 1.7 L (2-4) % Baso % (Auto) 0.6 (0-2) % Neut # (Auto) 4000 (0602-5620) /uL Lymph # (Auto) 1500 (2136-0586) /uL [place] # (Auto) 500 (0-900) /uL Eos # (Auto) 100 (0-450) /uL Baso # (Auto) 0 (0-100) /uL Sodium 139 (137-145) mmol/L Potassium 4.0 (3.4-5.1) mmol/L Chloride 104 (98-107) mmol/L Carbon Dioxide 27 (22-32) mmol/L BUN 13 (7-17) mg/dL Creatinine 0.77 (0.52-1.04) mg/dL Estimated GFR > 60 (>60) mL/min BUN/Creatinine Ratio 16.9 (6-22) Glucose 131 H (70-100) mg/dL Lactate (0.7-2.1) mmol/L Calcium 8.7 (8.4-10.2) mg/dL Total Bilirubin 1.1 (0.2-1.3) mg/dL AST 22 (14-36) IU/L ALT 23 (<35) IU/L Alkaline Phosphatase 56 (38-126) U/L Total Creatine Kinase (30-135) U/L CK-MB (CK-2) CK-MB (CK-2) Rel Index Troponin I (0.01-0.034) ng/mL NT-Pro-B Natriuret Pep (<125) pg/mL Total Protein 8.0 (6.3-8.2) g/dL Albumin 4.4 (3.5-5.0) g/dL Globulin 3.6 (1.7-4.1) g/dL Albumin/Globulin Ratio 1.2 (1.0-2.8) Urine Color Urine Appearance Urine pH (4.5-8.0) Ur Specific [place] (1.000-1.035) Urine Protein (Negative) Urine Glucose (UA) (Negative) g/dL Urine Ketones (NEGATIVE) Urine Occult Blood (Negative) Urine Nitrate (Negative) Urine Bilirubin (NEGATIVE) Urine Urobilinogen (0.2) E.U./dL Ur Leukocyte Esterase (NEGATIVE) Urine RBC (0-5/HPF) Urine WBC (0-5/HPF) Amorphous Sediment Urine Bacteria (None) Ur Culture Indicated? SARS-CoV-2 (PCR) Negative (Negative) 05/11/22 05/11/22 05/11/22 Range/Units 11:55 11:55 16:49 WBC (4.5-11.0) X10^3/uL RBC (4.0-5.2) X10^6/uL Hgb (12.0-16.0) g/dL Hct (36-46) % MCV (80-100) fL MCH (26-34) PG MCHC (30-36) % RDW (11.6-14.8) % Plt Count (150-400) X10^3/uL Neut % (Auto) (50-75) % Lymph % (Auto) (25-40) % [place] % (Auto) (3-14) % Eos % (Auto) (2-4) % Baso % (Auto) (0-2) % Neut # (Auto) (6000-7256) /uL Lymph # (Auto) (2639-7540) /uL [place] # (Auto) (0-900) /uL Eos # (Auto) (0-450) /uL Baso # (Auto) (0-100) /uL Sodium (137-145) mmol/L Potassium (3.4-5.1) mmol/L Chloride (98-107) mmol/L Carbon Dioxide (22-32) mmol/L BUN (7-17) mg/dL Creatinine (0.52-1.04) mg/dL Estimated GFR (>60) mL/min BUN/Creatinine Ratio (6-22) Glucose (70-100) mg/dL Lactate 1.7 (0.7-2.1) mmol/L Calcium (8.4-10.2) mg/dL Total Bilirubin (0.2-1.3) mg/dL AST (14-36) IU/L ALT (<35) IU/L Alkaline Phosphatase (38-126) U/L Total Creatine Kinase 81 (30-135) U/L CK-MB (CK-2) TNP CK-MB (CK-2) Rel Index TNP Troponin I < 0.012 (0.01-0.034) ng/mL NT-Pro-B Natriuret Pep 31 (<125) pg/mL Total Protein (6.3-8.2) g/dL Albumin (3.5-5.0) g/dL Globulin (1.7-4.1) g/dL Albumin/Globulin Ratio (1.0-2.8) Urine Color Yellow Urine Appearance Clear Urine pH 6.5 (4.5-8.0) Ur Specific [place] 1.015 (1.000-1.035) Urine Protein Negative (Negative) Urine Glucose (UA) Negative (Negative) g/dL Urine Ketones Negative (NEGATIVE) Urine Occult Blood 1+ H (Negative) Urine Nitrate Negative (Negative) Urine Bilirubin Negative (NEGATIVE) Urine Urobilinogen 0.2 (0.2) E.U./dL Ur Leukocyte Esterase Negative (NEGATIVE) Urine RBC 1-5/hpf (0-5/HPF) Urine WBC None seen (0-5/HPF) Amorphous Sediment 1+ Urine Bacteria None seen (None) Ur Culture Indicated? Cult not indicated SARS-CoV-2 (PCR) (Negative) Imaging Data Chest x-ray: Radiologist's Impression: [address] [address] XRay Report Signed Patient: Joycelyn Dela Cruz MR#: [id number] : 1970 Acct:[id number] Age/Sex: 51 / F Date of Service: 05/11/22 Loc: ED Accession Number: [id number] ?? Procedure: XR chest 2V Ordering Provider: Sola Sullivan D.O. PROCEDURE:? XR CHEST 2V ? INDICATIONS:? shortness of breath ? TECHNIQUE:? 2 views of the chest were acquired.? ? COMPARISON:? [facility], , XR CHEST 2V, 06/18/2021, 10:17. ? FINDINGS:? ? Surgical changes and devices:? None.? ? Lungs and pleura:? Lungs are clear.? No pleural effusions or pneumothorax.? ? Mediastinum:? Mediastinal contours are normal.? Heart size is normal.? ? Bones and chest wall:? No suspicious bony abnormalities.? Soft tissues appear unremarkable.? ? IMPRESSION:? No acute cardiopulmonary findings. ? ? Dictated by: Lizbeth Shin M.D. on 05/11/2022 at 12:37 ? ? Approved by: Lizbeth Shin M.D. on 05/11/2022 at 12:38 ? MDM Narrative Medical decision making narrative: 51-year-old female that presents to the ED with complaints of cough, wheezing and congestion x3 days. X-ray and labs were all negative. DuoNeb given with significant improvement of breath sounds and ease of breathing. I will prescribe a 5 day course of steroids and a albuterol inhaler. Discussed return precautions and plan of care with patient and spouse, who were agreeable with course of action. <Sola Sullivan, DO - Last Filed: 05/15/22 08:30> Lab Data Labs: Lab Results 05/11/22 05/11/22 05/11/22 Range/Units 11:48 11:55 11:55 WBC 6.2 (4.5-11.0) X10^3/uL RBC 4.58 (4.0-5.2) X10^6/uL Hgb 13.8 (12.0-16.0) g/dL Hct 39.7 (36-46) % MCV 86.7 (80-100) fL MCH 30.1 (26-34) PG MCHC 34.7 (30-36) % RDW 13.4 (11.6-14.8) % Plt Count 287 (150-400) X10^3/uL Neut % (Auto) 65.6 (50-75) % Lymph % (Auto) 23.6 L (25-40) % [place] % (Auto) 8.5 (3-14) % Eos % (Auto) 1.7 L (2-4) % Baso % (Auto) 0.6 (0-2) % Neut # (Auto) 4000 (3774-6380) /uL Lymph # (Auto) 1500 (5046-2863) /uL [place] # (Auto) 500 (0-900) /uL Eos # (Auto) 100 (0-450) /uL Baso # (Auto) 0 (0-100) /uL Sodium 139 (137-145) mmol/L Potassium 4.0 (3.4-5.1) mmol/L Chloride 104 (98-107) mmol/L Carbon Dioxide 27 (22-32) mmol/L BUN 13 (7-17) mg/dL Creatinine 0.77 (0.52-1.04) mg/dL Estimated GFR > 60 (>60) mL/min BUN/Creatinine Ratio 16.9 (6-22) Glucose 131 H (70-100) mg/dL Lactate (0.7-2.1) mmol/L Calcium 8.7 (8.4-10.2) mg/dL Total Bilirubin 1.1 (0.2-1.3) mg/dL AST 22 (14-36) IU/L ALT 23 (<35) IU/L Alkaline Phosphatase 56 (38-126) U/L Total Creatine Kinase (30-135) U/L CK-MB (CK-2) CK-MB (CK-2) Rel Index Troponin I (0.01-0.034) ng/mL NT-Pro-B Natriuret Pep (<125) pg/mL Total Protein 8.0 (6.3-8.2) g/dL Albumin 4.4 (3.5-5.0) g/dL Globulin 3.6 (1.7-4.1) g/dL Albumin/Globulin Ratio 1.2 (1.0-2.8) Urine Color Urine Appearance Urine pH (4.5-8.0) Ur Specific [place] (1.000-1.035) Urine Protein (Negative) Urine Glucose (UA) (Negative) g/dL Urine Ketones (NEGATIVE) Urine Occult Blood (Negative) Urine Nitrate (Negative) Urine Bilirubin (NEGATIVE) Urine Urobilinogen (0.2) E.U./dL Ur Leukocyte Esterase (NEGATIVE) Urine RBC (0-5/HPF) Urine WBC (0-5/HPF) Amorphous Sediment Urine Bacteria (None) Ur Culture Indicated? SARS-CoV-2 (PCR) Negative (Negative) 05/11/22 05/11/22 05/11/22 Range/Units 11:55 11:55 16:49 WBC (4.5-11.0) X10^3/uL RBC (4.0-5.2) X10^6/uL Hgb (12.0-16.0) g/dL Hct (36-46) % MCV (80-100) fL MCH (26-34) PG MCHC (30-36) % RDW (11.6-14.8) % Plt Count (150-400) X10^3/uL Neut % (Auto) (50-75) % Lymph % (Auto) (25-40) % [place] % (Auto) (3-14) % Eos % (Auto) (2-4) % Baso % (Auto) (0-2) % Neut # (Auto) (5866-7987) /uL Lymph # (Auto) (9890-7696) /uL [place] # (Auto) (0-900) /uL Eos # (Auto) (0-450) /uL Baso # (Auto) (0-100) /uL Sodium (137-145) mmol/L Potassium (3.4-5.1) mmol/L Chloride (98-107) mmol/L Carbon Dioxide (22-32) mmol/L BUN (7-17) mg/dL Creatinine (0.52-1.04) mg/dL Estimated GFR (>60) mL/min BUN/Creatinine Ratio (6-22) Glucose (70-100) mg/dL Lactate 1.7 (0.7-2.1) mmol/L Calcium (8.4-10.2) mg/dL Total Bilirubin (0.2-1.3) mg/dL AST (14-36) IU/L ALT (<35) IU/L Alkaline Phosphatase (38-126) U/L Total Creatine Kinase 81 (30-135) U/L CK-MB (CK-2) TNP CK-MB (CK-2) Rel Index TNP Troponin I < 0.012 (0.01-0.034) ng/mL NT-Pro-B Natriuret Pep 31 (<125) pg/mL Total Protein (6.3-8.2) g/dL Albumin (3.5-5.0) g/dL Globulin (1.7-4.1) g/dL Albumin/Globulin Ratio (1.0-2.8) Urine Color Yellow Urine Appearance Clear Urine pH 6.5 (4.5-8.0) Ur Specific [place] 1.015 (1.000-1.035) Urine Protein Negative (Negative) Urine Glucose (UA) Negative (Negative) g/dL Urine Ketones Negative (NEGATIVE) Urine Occult Blood 1+ H (Negative) Urine Nitrate Negative (Negative) Urine Bilirubin Negative (NEGATIVE) Urine Urobilinogen 0.2 (0.2) E.U./dL Ur Leukocyte Esterase Negative (NEGATIVE) Urine RBC 1-5/hpf (0-5/HPF) Urine WBC None seen (0-5/HPF) Amorphous Sediment 1+ Urine Bacteria None seen (None) Ur Culture Indicated? Cult not indicated SARS-CoV-2 (PCR) (Negative) Discharge Plan Departure Patient Disposition: Home Clinical Impression: Asthma with exacerbation Instructions: DI for Asthma -- Adult Activity Restrictions/Additional Instructions: *You have been diagnosed with asthma exacerbation. Your breath sounds and ease of breathing has significantly improved after nebulizer treatment. I will send a prescription for a 5 day course of steroids and a refill of your albuterol inhaler. For any worsening symptoms, to include chest pain, difficulty breathing, etc. please return to the emergency department immediately. Otherwise, follow-up with your family doctor as needed. *What to do: *Please continue to take your regular medications as directed. [ x] New medication prescriptions sent to your pharmacy: [[facility]] [ ] New medication written as a paper prescription [ ] No new medications given *Please follow up with your primary care provider in 2-3 days, call for an appointment. Let them know you were seen in the Emergency Department and that we ask that you be seen in follow up. We will electronically transmit a record of today's note if your PCP is in our system *If you do not have a primary care provider please contact the [facility] Resource line at [phone]. They will ask some questions about your medical history and help get you set up with a doctor in the community. ? Return to ER if you should have any new, worsening or concerning symptoms, such as worsening pain, severe headache, confusion, chest pain, difficulty breathing, fever greater than 101 F, shaking chills, persistent vomiting to the point that you cannot drink fluids, or other new or worsening symptoms. Prescriptions: New albuterol sulfate [ProAir HFA] 90 mcg/actuation HFA aerosol inhaler 2 puff inhalation Q6H PRN (Reason: shortness of breath, cough or wheezing) Qty: 6.7 0RF prednisone 20 mg tablet 40 mg PO DAILY 5 Days Qty: 10 0RF No Action albuterol sulfate 90 mcg/actuation HFA aerosol inhaler 2 puff INHALATION Q4-6H PRN (Reason: shortness of breath or wheezing) Qty: 8.5 0RF Referrals: April Cee ND [Primary Care Provider] - Visit Report Forms: Patient Portal/API <Sola Sullivan DO - Last Filed: 05/15/22 08:30> Cosign ED Attending Cosignature Attestation: I was immediately available in the department for consultation. Documentation has been reviewed.
[2022-05-11] MEDS: ALBUTEROL/IPRATROPIUM 3 ML AMPUL INH (16:56)
[2022-05-11 17:06] LABS: Appearance Urine UA CLEAR; Bilirubin Urine UA NEGATIVE (NEGATIVE); Color Urine UA YELLOW; Glucose Urine UA NEGATIVE (Negative); Ketones Urine UA NEGATIVE (NEGATIVE); Leukocyte Esterase Urine UA NEGATIVE (NEGATIVE); Nitrite Urine UA NEGATIVE (Negative); Occult Blood Urine UA 1+ (Negative); Protein Urine UA NEGATIVE (Negative); Specific Gravity Urine UA 1.015 (1.000-1.035); Urobilinogen Urine UA 0.2 E.U./dL (0.2)
[2022-05-11 17:07] LABS: pH Urine UA 6.5 (4.5-8.0)
[2022-05-11 17:17] LABS: Amorphous Sediment Urine 1+; Bacteria Urine None Seen; Culture Indicated Urine Cult Not Indicated; RBC Urine 1-5/HPF (0-5/HPF); WBC Urine None Seen (0-5/HPF)
== END 2022-05-11 18:07 | disposition home or self-care (01) ==
PROVIDERS: Emergency Medicine; Emergency Provider Registered Nurse; PCP Naturopath
DX: J45.901 Unspecified asthma with (acute) exacerbation (principal); Z86.16 Personal history of COVID-19; Z20.822 Contact with and (suspected) exposure to COVID-19
CPT/HCPCS: 36415; 71046; 80053; 81001; 82550; 83605; 83880; 84484; 85025; 87635; 93005; 93010; 99284; C9803

== ENCOUNTER → 2022-10-01 18:37 | Outpatient (CLI) | payer OTHER, MEDICAID, SELFPAY ==
[2021-03-26 00:30] VITALS: BMI 33.8
[2021-03-30 12:53] VITALS: PULSE 77; RESP 18
[2021-03-30 13:26] VITALS: O2SAT 93
--- NOTE | 2022-10-01 18:38 | DI.MRI.S_ITS ---
PROCEDURE: MR PELVIS WO/W CON INDICATIONS: RIGHT ADENEXAL MASS TECHNIQUE: Coronal HASTE, sagittal breath-hold T2 FSE; axial T1 FSE with and without fat saturation through the pelvis. Optional long- and short-axis uterine nonbreath-hold T2 FSE through the uterus. Sagittal or axial dynamic VIBE during administration of contrast. Post-contrast axial or coronal VIBE/2-D FLASH with fat saturation from the iliac crests to the symphysis. Optional diffusion weighted imaging and ADC may be performed. COMPARISON: None. FINDINGS: Image quality: Good Lower abdomen: No bowel obstruction. No pathologic ascites. Bladder: Under distended and unremarkable on limited evaluation. Reproductive organs: Hysterectomy. In the region of the right adnexa, there is a multiloculated cystic lesion measuring 7.1 x 2.1 centimeters in aggregate. Some solid enhancing portions are present, which may represent intervening ovarian tissue versus solid neoplastic components. In the region of the left adnexa, multiloculated cystic lesion is seen with a central mass that is hypointense on all sequences without appreciable enhancement, in aggregate measuring 4.5 x 3.1 centimeters. The central hypointense component measures 3.2 x 3.3 centimeters. Rectum: Unremarkable Vessels and lymph nodes: No aneurysm in the field of view. No pathologic adenopathy by size criteria. Pelvic wall: Unremarkable Bones: No acute or suspicious osseous abnormality. IMPRESSION: Bilateral adnexal multiloculated cystic lesions, larger on the right, with possible intervening ovarian tissue versus solid neoplastic components. Surrounding the left adnexal lesion, there is hypointense 3.3 centimeter lesion that does not show definite enhancement. Gynecologic consultation is suggested for possible ovarian neoplasms. Dictated by: Sanjay Cyr M.D. on 10/02/2022 at 10:35 Approved by: Sanjay Cyr M.D. on 10/02/2022 at 10:46
== END ==
PROVIDERS: PCP Naturopath; Referring Provider Naturopath; Visit Provider Naturopath
DX: R19.09 Other intra-abdominal and pelvic swelling, mass and lump (principal)
CPT/HCPCS: 72197; A9579

== ENCOUNTER → 2022-10-07 15:41 | Outpatient (CLI) | payer OTHER, MEDICAID, SELFPAY ==
[2021-03-26 00:30] VITALS: BMI 33.8
[2021-03-30 12:53] VITALS: PULSE 77; RESP 18
[2021-03-30 13:26] VITALS: O2SAT 93
[2022-10-07 17:43] LABS: Lactate Dehydrogenase 164 U/L (120-246)
[2022-10-07 18:10] LABS: Cancer Antigen 125 5.6 U/mL (0-35); Carcinoembryonic Antigen 0.9 ng/mL (0.1-3.0)
[2022-10-09 12:22] LABS: Inhibin B <7.0 pg/mL (.)
== END ==
PROVIDERS: PCP Naturopath; Referring Provider Obstetrics & Gynecology; Visit Provider Obstetrics & Gynecology
DX: N83.209 Unspecified ovarian cyst, unspecified side (principal); R19.09 Other intra-abdominal and pelvic swelling, mass and lump
CPT/HCPCS: 36415; 82105; 82378; 83520; 83615; 86304; 86305

== ENCOUNTER 2022-11-27 06:48 | Day surgery (SDC) | payer OTHER, MEDICAID, SELFPAY ==
[2021-03-26 00:30] VITALS: BMI 33.8
[2021-03-30 12:53] VITALS: PULSE 77; RESP 18
[2021-03-30 13:26] VITALS: O2SAT 93
[2022-11-24 15:05] VITALS: BMI 36.6
--- NOTE | 2022-11-27 | PATH_ITS ---
[facility] Accession Number: [id number] No. of containers..01 Tissue . 01 Material submitted: . ovary - RIGHT TUBE AND OVARY, LEFT FALLOPIAN TUBE . 01 Diagnosis: Right Ovary and Bilateral Fallopian Tubes, Right Oophorectomy and Bilateral Salpingectomy: Benign serous cystadenoma. Bilateral fimbriated fallopian tubes with simple benign paratubal cysts. Negative for borderline or malignant features. MRV 12/01/2022 1732 Local . 01 Comment: As part of routine clinical quality assurance specialist, Dr. Negrete has reviewed slides A1 and A2 from this case and agrees with the diagnosis of benign serous cystadenoma. . 01 Electronically signed: . Gaetano Valentine MD, PhD, Pathologist NPI- [id number] . 01 Gross description: . Received in formalin, labeled right tube and ovary, left fallopian tube, is an intact ovary with separate bilateral fallopian tubes. The ovary measures 3.5 x 2.6 x 1.8 cm and has a gold-carbone, bossellated serosal surface. The serosal surface is remarkable for multiple serosal cysts ranging from 0.2 cm to 2.8 cm. The largest cyst is previously partially opened and is collapsed and has a pink-carbone, smooth, and glistening external surface. The ovary reveals several smooth-walled cysts ranging up to 1.1 cm. The remaining ovarian stroma is unremarkable. The fallopian tubes are fimbriated. One tube is received in two segments which together measure 4.5 cm in length by 0.6 cm in diameter. The remaining tube measures 4.0 cm in length by 0.6 cm in diameter. Both fallopian tubes are convoluted, and the intact tube is remarkable for a 1.2 cm in diameter paratubal cyst. Sectioning of both tubes reveals a stellate lumen. Armored [employer] Operator sections of the ovary and cysts are submitted in cassettes A1-A2. Armored Cable Machine Operator sections from the intact fallopian tube are submitted in cassette A3. Armored Cable Machine Operator sections of the remaining fallopian tube are submitted in cassette A4. ([id number]) /ROMY 11/28/2022 1342 Local . 01 Pathologist provided ICD-10: D27.0 . 01 CPT . 746907 Specimen Comment: A courtesy copy of this report has been sent to [phone] Performed at: 01 [facility] [address] [place] [address] [id number] MD Chandra Mar MD Phone: [phone]
[2022-11-27 07:15] VITALS: BP 135/88; PULSE 77; RESP 20; TEMP 36.1; O2SAT 98; BMI 36.6
[2022-11-27] MEDS: ACETAMINOPHEN IV 1,000 MG/100 ML VIAL 400 MG IV (07:34)
[2022-11-27] MEDS: SCOPOLAMINE 1 PATCH TOP (07:36)
[2022-11-27] MEDS: LACTATED RINGERS 1,000 ML 42 ML IV (07:37)
--- NOTE | 2022-11-27 07:40 | PM.PREOP ---
Pre-operative Note COVID-19 COVID-19 status: Not tested Criteria for continued procedure: Non-surgical alternatives not available or appropriate per current SOC Interval Note History & Physical reviewed/Exam performed by Physician: Yes Changes to H&P: No
--- NOTE | 2022-11-27 08:02 | SUR.OPER ---
Lithotomy on padded OR bed. [place] Pad Positioner under torso. Head on pillow, arms padded and tucked at sides. Legs secured in padded yellow fins stirrups. Pt positioned per direction and supervision of Dr Olson.
[2022-11-27] MEDS: BUPIVACAINE 0.5% W/ EPI (PF) 30 ML VIAL INJ (08:07)
[2022-11-27 09:13] VITALS: BP 136/90; PULSE 88; RESP 14; TEMP 36.1; O2SAT 95
--- NOTE | 2022-11-27 09:18 | PM.GYNOP.1 ---
Operative Date/Time/Diagnoses Date of procedure: 11/27/22 Time of procedure: 08:00 Pre-op diagnosis: RLQ pain Right ovarian cyst Left hydrosalpinx Post-op diagnosis: same Procedure & Clinicians Procedure: Procedures Operation Date: 11/27/22 07:45 Actual Procedure Side Surgeon p Laparoscopic Right Salpingo-oophorectomy, Left Salpingectomy Bilateral Juan Carlos Olson MD Indications: Joycelyn is a 51-year-old , last menstrual period at the time of vaginal hysterectomy about 7 years ago because of menorrhagia, who presents with an 8 month history of right lower quadrant pain.? She describes the pain as a pulling sensation that is worsened by certain types of movements and is present every day.? The pain is noncyclic.? Pain is always on the right side and is nonradiating but is often times associated with nausea when the pain becomes severe.? Because of the pain, the patient's primary care provider, April Cee, ordered a pelvic ultrasound which was performed at [facility] on 09/16/2022 showed that the uterus is surgically absent but the right ovary is multi-cystic in appearance and enlarged measuring 7.3 x 6.7 x 3.2 cm with an estimated volume of 81.8 cc.? Doppler assessment demonstrated no internal vascularity.? There is also a hypoechoic mass within the left adnexa measuring 2.9 x 2.8 x 2.7 cm.? Doppler assessment demonstrates no internal vascularity.? A tubular shape, salpinges cystic mass also within the left adnexa is noted with the appearance suggesting possible hydrosalpinx measuring 2.8 x 2.1 x 1.7 cm.? The patient subsequently had a pelvic MR performed at [facility] on 10/01/2022 which showed: FINDINGS:? Image quality:? Good ? Lower abdomen:? No bowel obstruction.? No pathologic ascites. ? Bladder:? Under distended and unremarkable on limited evaluation. ? Reproductive organs:? Hysterectomy. In the region of the right adnexa, there is a multiloculated cystic lesion measuring 7.1 x 2.1 centimeters in aggregate.? Some solid enhancing portions are present, which may represent intervening ovarian tissue versus solid neoplastic components. In the region of the left adnexa, multiloculated cystic lesion is seen with a central mass that is hypointense on all sequences without appreciable enhancement, in aggregate measuring 4.5 x 3.1 centimeters.? The central hypointense component measures 3.2 x 3.3 centimeters. ? Rectum:? Unremarkable ? Vessels and lymph nodes:? No aneurysm in the field of view.? No pathologic adenopathy by size criteria. ? Pelvic wall:? Unremarkable ? Bones:? No acute or suspicious osseous abnormality. ? IMPRESSION:? Bilateral adnexal multiloculated cystic lesions, larger on the right, with possible intervening ovarian tissue versus solid neoplastic components.? Surrounding the left adnexal lesion, there is hypointense 3.3 centimeter lesion that does not show definite enhancement.? Gynecologic consultation is suggested for possible ovarian neoplasms. Following her MRI, the patient had tumor markers drawn on 10/07/2022 including CA 125, AFP, CEA, LDH, inhibin B, and HE4.? All tumor markers tested were within the normal/negative range.? We discussed options for further evaluation/treatment of her right-sided pelvic pain and her ovarian cyst.? It is likely that the bulk of the right ovary is likely involve with tubal adhesions thus causing her persistent pulling pain which is aggravated by certain motions.? The left ovarian cyst and hydrosalpinx are largely asymptomatic.? We discussed the possibility of using continuous low-dose oral contraceptives for ovarian cyst suppression but patient does not wish to pursue that option.? Instead she would prefer laparoscopic right salpingo oophorectomy with left salpingectomy and preservation of the left ovary.? She presents today for her scheduled surgery.? Surgeon: Juan Carlos Olson Anesthesia Type: General Operative Notes Findings: The uterus is surgically absent. The right ovary is enlarged to approximately 5-6 cm and contains 2 cysts. The left ovary is normal size but has 3 or 4 small exophytic clear cysts on its surface. The fallopian tubes are normal in appearance status post hysterectomy. The appendix was visibly normal as is the upper abdomen by laparoscopic inspection. Closure Type: primary Specimen(s): left tube and right tube & ovary Estimated blood loss (mL): 10 Blood products transfused: none Procedure in detail: With the patient under satisfactory general anesthesia in the modified dorsal lithotomy position, the perineum, vagina, and abdomen were prepped and draped in the usual fashion for laparoscopy. A pre-surgical safety time-out was then taken in accordance with [facility] Main OR protocols. A sponge stick was inserted in the vaginal canal and preparations made for laparoscopy. The skin of the inferior umbilicus was infiltrated with 0.5% Marcaine with epinephrine and a 2-1/2 cm vertical umbilical incision was made in the skin of the inferior umbilicus. The dissection was carried down to the deep fascia which was incised transversely and the peritoneum entered sharply under direct vision. Stay sutures were placed at each end of the fascial incision and Patrick cannula was secured place. The abdomen was then insufflated and correct placement of the son was assured by laparoscopic visualization. Second and 3rd 5 mm laparoscopic ports were placed in the left and right mid quadrants using a similar technique and using 3 puncture technique the abdomen and pelvis were thoroughly inspected with the findings as noted previously. The distal tube on the right side was then grasped with a grasping forcep an elevated. The power Seal device was then used to coagulate and divide the infundibulopelvic ligament on the right side and the dissection was carried out with the power Seal device across the base of the ovary to include the remnant of the right fallopian tube. Once all pedicles were secured hemostatic, ovary and tube on the right side were set aside for later retrieval. Attention was then turned to the left adnexa with the left distal tube grasped a grasping forceps. Fimbria varicose was then coagulated and divided with a power Seal device and the dissection carried across the mesosalpinx so as to be able to remove the tubal remnant in its entirety. An Endo-Catch device was then introduced through the umbilical port and both specimens were easily retreat. They are brought out through the umbilical incision and submitted as an aggregate surgical specimen. The abdomen was reinsufflated and the pedicles inspected. All were found to be entirely hemostatic. The exophytic cyst on the surface of the left ovary were then coagulated with the bipolar device, each containing clear fluid and no nodularity whatsoever. Pelvis and abdomen were inspected a final time and was no other abnormalities points of bleeding noted. Pneumoperitoneum was then vented and laparoscopic sleeves removed from their incisions. Fascia of the umbilical incision was then closed with 0 Vicryl interrupted and all skin incisions were closed with 4-0 Monocryl using inverted interrupted stitches. Appropriate dressings were applied to each incision after application of skin glue and the procedure was terminated. The sponge stick was removed from the vagina and the patient awakened from anesthesia. She was then transferred to the PACU for a period of observation recovery after having tolerated the procedure well. Complications: none Post-operative Condition: stable Disposition: PACU Plan for aftercare: Routine postoperative care
[2022-11-27 09:19] VITALS: BP 134/93; PULSE 85; RESP 14; O2SAT 96
[2022-11-27 09:24] VITALS: BP 142/93; PULSE 80; RESP 14; O2SAT 92
[2022-11-27 09:30] VITALS: BP 155/94; PULSE 97; RESP 12; O2SAT 98
[2022-11-27] MEDS: OXYCODONE IR 5 MG TABLET PO (09:36)
[2022-11-27 09:38] VITALS: BP 158/94; PULSE 84; RESP 14; TEMP 36.2; O2SAT 96
--- NOTE | 2022-11-27 09:55 | SUR.PHASEII ---
dressed self, DC via WC with belongings.
== END 2022-11-27 10:08 | disposition home or self-care (01) ==
PROVIDERS: PCP Naturopath; Referring Provider Obstetrics & Gynecology; Visit Provider Obstetrics & Gynecology
PROC: 0UT24ZZ Resection of Bilateral Ovaries, Percutaneous Endoscopic Approach (ICD-10-PCS; CPT 58661; principal; 2022-11-27 07:45)
DX: N70.11 Chronic salpingitis (principal); N83.8 Other noninflammatory disorders of ovary, fallopian tube and broad ligament; D27.0 Benign neoplasm of right ovary
CPT/HCPCS: 58661; J0131; J1100; J1885; J2250; J2405; J2704; J3010

== ENCOUNTER 2023-04-07 17:11 | Emergency (ER) | payer OTHER, MEDICAID, SELFPAY ==
[2021-03-26 00:30] VITALS: BMI 33.8
[2021-03-30 12:53] VITALS: PULSE 77; RESP 18
[2021-03-30 13:26] VITALS: O2SAT 93
[2023-04-07 17:29] VITALS: BP 186/95; PULSE 105; RESP 16; TEMP 37; O2SAT 98; BMI 35.9
--- NOTE | 2023-04-07 18:47 | ED_ITS ---
HPI - URI/Sore Throat General Chief Complaint: Upper Respiratory Symptoms Stated Complaint: high BP, sore throat, nose/eyes nelson Time Seen by Provider: 04/07/23 18:32 Source: patient Mode of arrival: Ambulatory History of Present Illness HPI Narrative: Patient is a 52-year-old female history of hypertension presenting today with 1 week of upper respiratory like symptoms. Cough nasal congestion and drainage. She feels like she is been sick for about 1 week she is had some body aches and pains. He has not taken her temperature Tylenol or Motrin. Last night she had some chest discomfort that seem to be positional it went away after about 30 minutes it was reproducible to touch. She is had ongoing headaches. She is not coughing up anything it is a dry nonproductive cough. reports that she is snoring more. Related Data Home Medications Medication Instructions Recorded Confirmed losartan 100 mg tablet 100 mg PO DAILY 11/27/22 12/18/22 Previous Rx's Medication Instructions Recorded albuterol sulfate 90 mcg/actuation 2 puff inhalation Q4-6H PRN 03/11/19 aerosol inhaler shortness of breath or wheezing #8.5 grams albuterol sulfate 2.5 mg/3 mL 2.5 mg (3 mL) inhalation QID PRN 04/07/23 (0.083 %) solution for nebulization bronchospasm #75 mL hydrocodone-homatropine 5 mg-1.5 5 ml PO Q6H PRN cough #100 mL 04/07/23 mg/5 mL (5 mL) oral syrup prednisone 20 mg tablet 40 mg PO DAILY #10 tabs 04/07/23 Allergies Allergy/AdvReac Type Severity Reaction Status Date / Time chocolate flavor Allergy Unknown Verified 04/07/23 17:46 [CHOCOLATE FLAVOR] adhesive tape [ADHESIVE TAPE] AdvReac Intermediate Verified 04/07/23 17:46 latex [LATEX] AdvReac Intermediate Verified 04/07/23 17:46 Review of Systems Review of Systems ROS Unobtainable: All systems reviewed & are unremarkable except as noted in HPI and below Patient History Medical History Frequent UTI Heavy menstrual period History of frequent headaches Surgical History Anesthesia History of hysterectomy History of removal of cyst Status post delivery (~1989) Status post tubal ligation (~1994) Family History Father Age: 84 Cancer Hypertension Mother Age: 80 Cancer Hypertension High cholesterol Grandfather Cancer Grandmother Heart disease Social History household members: spouse Smoking Status: Never smoker alcohol intake: current Smoking Status: Never smoker alcohol intake frequency: holidays/special occasions only Substance Use Type: does not use Exam Initial Vital Signs Initial Vital Signs: Vital Signs Temperature 98.6 F 04/07/23 17:29 Pulse Rate 105 H 04/07/23 17:29 Respiratory Rate 16 04/07/23 17:29 Blood Pressure 186/95 H 04/07/23 17:29 Pulse Oximetry 98 04/07/23 17:29 Oxygen Delivery Method Room Air 04/07/23 17:29 GENERAL: Alert well-appearing 52-year-old female HEENT: Head atraumatic,EOMI, pupils reactive, face symmetric, moist mucous membranes CARDIOVASCULAR: Regular rate and rhythm without murmurs, rubs or gallops. RESPIRATORY: Coughing with deep breaths slight expiratory wheeze no conversational dyspnea ABDOMEN: Soft, nontender. Normoactive bowel sounds all 4 quadrants. No guarding or rebound. EXTREMITIES: Normal range of motion, no clubbing or edema. Neurovascularly intact NEUROLOGICAL: Alert and oriented x4. SKIN: Warm, dry, no laceration, no petechiae, no rashes or lesions. Course Orders Ordered: Discontinued Medications Hydrocodone Bitart/Acetaminophen (Hydrocodone/Acet 5/325 Prepack) 1 bottle MISC SEEINSTR ONE Stop: 04/07/23 21:10 Last Admin: 04/07/23 21:22 Dose: 1 bottle Documented By: HAYDE Albuterol (Albuterol Hfa Prepack) 1 box MIS SEEINSTR ONE Stop: 04/07/23 21:10 Last Admin: 04/07/23 21:22 Dose: 1 box Documented By: HAYDE Albuterol/Ipratropium (Albuterol/Ipratropium 3 Ml Ampul) 3 ml INH NOW ONE Stop: 04/07/23 18:49 Last Admin: 04/07/23 18:56 Dose: 3 ml Documented By: RICCARDO Sodium Chloride (Normal Saline 0.9%) 1,000 mls @ 1,000 mls/hr IV BOLUS ONE Stop: 04/07/23 19:47 Last Infusion: 04/07/23 20:54 Dose: 0 mls/hr Documented By: Admin: 04/07/23 19:05 Dose: 1,000 mls/hr Documented By: HAYDE Ketorolac Tromethamine (Ketorolac 30 Mg/Ml Vial) 15 mg IV NOW ONE Stop: 04/07/23 18:49 Last Admin: 04/07/23 19:05 Dose: 15 mg Documented By: HAYDE Vital Signs Vital signs: Vital Signs - 8 hr 04/07/23 21:33 Pulse Rate 96 H Respiratory Rate 18 Blood Pressure 169/93 H Pulse Oximetry 96 Oxygen Delivery Method Room Air MDM - URI/Sore Throat Lab Data 04/07/23 19:41 04/07/23 19:41 Labs: Lab Results 04/07/23 04/07/23 04/07/23 Range/Units 19:40 19:41 19:41 WBC 10.5 (4.5-11.0) X10^3/uL RBC 4.31 (4.0-5.2) X10^6/uL Hgb 12.7 (12.0-16.0) g/dL Hct 37.5 (36-46) % MCV 87.1 (80-100) fL MCH 29.6 (26-34) PG MCHC 33.9 (30-36) % RDW 13.3 (11.6-14.8) % Plt Count 314 (150-400) X10^3/uL Neut % (Auto) 59.4 (50-75) % Lymph % (Auto) 31.9 (25-40) % [place] % (Auto) 6.0 (3-14) % Eos % (Auto) 2.1 (2-4) % Baso % (Auto) 0.6 (0-2) % Neut # (Auto) 6300 (9341-7311) /uL Lymph # (Auto) 3400 (6613-8530) /uL [place] # (Auto) 600 (0-900) /uL Eos # (Auto) 200 (0-450) /uL Baso # (Auto) 100 (0-100) /uL Sodium 140 (137-145) mmol/L Potassium 3.5 (3.4-5.1) mmol/L Chloride 105 (98-107) mmol/L Carbon Dioxide 27 (22-32) mmol/L BUN 14 (7-17) mg/dL Creatinine 0.81 (0.52-1.04) mg/dL Estimated GFR > 60 (>60) mL/min BUN/Creatinine Ratio 17.3 (6-22) Glucose 113 H (70-100) mg/dL Calcium 9.0 (8.4-10.2) mg/dL Total Bilirubin 0.9 (0.2-1.3) mg/dL AST 21 (14-36) IU/L ALT 25 (<35) IU/L Alkaline Phosphatase 87 (38-126) U/L Total Creatine Kinase 79 (30-135) U/L Troponin I < 0.012 (0.01-0.034) ng/mL Total Protein 8.0 (6.3-8.2) g/dL Albumin 4.4 (3.5-5.0) g/dL Globulin 3.6 (1.7-4.1) g/dL Albumin/Globulin Ratio 1.2 (1.0-2.8) SARS-CoV-2 (PCR) Negative (Negative) Influenza A (RT-PCR) Flu a negative (NEGATIVE) Influenza B (RT-PCR) Flu b negative (NEGATIVE) RSV (PCR) Negative (Negative) Imaging Data Chest x-ray: Radiologist's Impression: PROCEDURE:? XR CHEST 2V ? INDICATIONS:? cough ? TECHNIQUE:? 2 views of the chest were acquired.? ? COMPARISON:? [facility], , XR CHEST 2V, 05/11/2022, 12:20. ? FINDINGS:? ? Surgical changes and devices:? None.? ? Lungs and pleura:? Lungs are clear.? No pleural effusions or pneumothorax.? ? Mediastinum:? Mediastinal contours are normal.? Heart size is normal.? ? Bones and chest wall:? No suspicious bony abnormalities.? Soft tissues appear unremarkable.? ? IMPRESSION:? ? 1.? No acute cardiopulmonary disease. ? ? ? Dictated by: Chandra Huitron M.D. on 04/07/2023 at 20:11 ? ? ECG Data Interpretation: Sinus rhythm rate 91 AZ interval 148 QRS [address] changes no T-wave i nversions MDM Narrative Medical decision making narrative: Patient 52-year-old female history of hypertension presenting today with 1 week of bronchitic like cough. He is had body aches. X-ray does not show any evidence of pneumonia. Blood work is overall reassuring without leukocytosis. She actually is feeling a lot better after neb she got. She nebulizer home is out of the medication. Will give her inhaler nebs steroids and cough medicine. No need for antibiotics at this time. Likely viral. Discharge Plan Departure Patient Disposition: Home Clinical Impression: Bronchitis Instructions: DI for Acute Bronchitis Activity Restrictions/Additional Instructions: *You have been diagnosed with bronchitis *What to do: Increase activity as tolerated. Use inhaler as needed. At this can take a couple weeks to fully heal but no need for antibiotics. *Continue to take medications as directed Prednisone 40 mg once a day for 5 days Albuterol either inhaler or nebulizer every 4 hours if needed for cough and steven rtness of breath Hydrocodone/homatropine 5 mL every 6 hours only if needed for cough and sleeping *Follow up with your primary care provider in 2-3 days or call [phone] *Return to ER if you should have increasing shortness of breath cough [or] any new, worsening or concerning symptoms CONTROLLED SUBSTANCE DISCHARGE (Narcotoic/benzodiazepine/Flexeril/Phenergan) 1. You have been prescribed narcotic medications, it does have acetaminophen/Tylenol/paracetamol in it, DO NOT TAKE MORE THAN 4,00mg in 24 hours of Tylenol. TRAMADOL DOES NOT CONTAIN TYLENOL 2. Please understand that we cannot provide further refills of narcotics, benzodiazepines or controlled substances through the ED and her pain management will need to be through your provider. 3. While on these medications you cannot drive or operate heavy machinery. 4. You cannot sign legal documents or perform any duties such as this. 5. As long as you're taking opiate pain medications he should also be taking a stool softener such as Colace, Dulcolax, MiraLAX or prune juice, to help avoid constipation. Prescriptions: New albuterol sulfate 2.5 mg /3 mL (0.083 %) solution for nebulization 2.5 mg inhalation QID PRN (Reason: bronchospasm) Qty: 75 0RF hydrocodone-homatropine 5-1.5 mg/5 mL (5 mL) syrup 5 ml PO Q6H PRN (Reason: cough) Qty: 100 0RF prednisone 20 mg tablet 40 mg PO DAILY Qty: 10 0RF No Action albuterol sulfate 90 mcg/actuation HFA aerosol inhaler 2 puff INHALATION Q4-6H PRN (Reason: shortness of breath or wheezing) Qty: 8.5 0RF losartan 100 mg tablet 100 mg PO DAILY Patient Comments: TAKE 1/2 TABLET BY MOUTH TWICE DAILY Referrals: April Cee ND [Primary Care Provider] - Stand Alone Forms: Patient Portal/API
--- NOTE | 2023-04-07 18:48 | DI.RAD.S_ITS ---
PROCEDURE: XR CHEST 2V INDICATIONS: cough TECHNIQUE: 2 views of the chest were acquired. COMPARISON: [facility], CR, XR CHEST 2V, 05/11/2022, 12:20. FINDINGS: Surgical changes and devices: None. Lungs and pleura: Lungs are clear. No pleural effusions or pneumothorax. Mediastinum: Mediastinal contours are normal. Heart size is normal. Bones and chest wall: No suspicious bony abnormalities. Soft tissues appear unremarkable. IMPRESSION: 1. No acute cardiopulmonary disease. Dictated by: Chandra Huitron M.D. on 04/07/2023 at 20:11 Approved by: Chandra Huitron M.D. on 04/07/2023 at 20:12
[2023-04-07 18:56] VITALS: PULSE 105; RESP 16; O2SAT 98
[2023-04-07] MEDS: ALBUTEROL/IPRATROPIUM 3 ML AMPUL INH (18:56)
[2023-04-07] MEDS: KETOROLAC 30 MG/ML VIAL 15 MG IV (19:05)
[2023-04-07] MEDS: SODIUM CHLORIDE 0.9% 1,000 ML 1000 ML IV (19:05)
[2023-04-07 19:55] LABS: Add Manual Diff / Slide Review NO; Basophils Absolute Auto 100 /uL (0-100); Basophils Percent Auto 0.6 % (0-2); Eosinophils Absolute Auto 200 /uL (0-450); Eosinophils Percent Auto 2.1 % (2-4); Hematocrit 37.5 % (36-46); Hemoglobin 12.7 g/dL (12.0-16.0); Lymphocytes Absolute Auto 3400 /uL (1100-4500); Lymphocytes Percent Auto 31.9 % (25-40); Mean Corpuscular HGB Conc 33.9 % (30-36); Mean Corpuscular Hemoglobin 29.6 PG (26-34); Mean Corpuscular Volume 87.1 fL (80-100); Monocytes Absolute Auto 600 /uL (0-900); Neutrophils Absolute Auto 6300 /uL (1500-7000); Neutrophils Percent Auto 59.4 % (50-75); Platelet Count 314 X10^3/uL (150-400); Red Blood Cell Count 4.31 X10^6/uL (4.0-5.2); Red Cell Distribution Width 13.3 % (11.6-14.8); White Blood Cell Count 10.5 X10^3/uL (4.5-11.0)
[2023-04-07 20:20] LABS: Influenza A - CEPHEID Flu A NEGATIVE (NEGATIVE); Influenza B - CEPHEID Flu B NEGATIVE (NEGATIVE); Respiratory Syncytial Virus Negative (Negative)
[2023-04-07 20:28] LABS: Alanine Aminotransferase 25 IU/L (<35); Albumin 4.4 g/dL (3.5-5.0); Albumin Globulin Ratio 1.2 (1.0-2.8); Alkaline Phosphatase 87 U/L (38-126); Aspartate Aminotransferase 21 IU/L (14-36); BUN Creatinine Ratio 17.3 (6-22); Bilirubin Total 0.9 mg/dL (0.2-1.3); Blood Urea Nitrogen 14 mg/dL (7-17); Carbon Dioxide 27 mmol/L (22-32); Chloride 105 mmol/L (98-107); Creatine Kinase 79 U/L (30-135); Estimated Glomerular Filt Rate > 60 mL/min (>60); Globulin 3.6 g/dL (1.7-4.1); Glucose 113 mg/dL (70-100); HEMOLYSIS < 15 (0-50); Potassium 3.5 mmol/L (3.4-5.1); Sodium 140 mmol/L (137-145)
[2023-04-07 20:40] LABS: Troponin I < 0.012 ng/mL (0.01-0.034)
[2023-04-07 20:41] LABS: COVID-19 CEPHEID 4-PLEX PCR Negative (Negative)
[2023-04-07] MEDS: ALBUTEROL HFA PREPACK 1 BOX MISC (21:22)
[2023-04-07] MEDS: HYDROCODONE/ACET 5/325 PREPACK 1 BOTTLE MISC (21:22)
[2023-04-07 21:33] VITALS: BP 169/93; PULSE 96; RESP 18; O2SAT 96
== END 2023-04-07 21:34 | disposition home or self-care (01) ==
PROVIDERS: Emergency Provider Emergency Medicine; PCP Naturopath
DX: J40 Bronchitis, not specified as acute or chronic (principal)
CPT/HCPCS: 0241U; 71046; 80053; 82550; 84484; 85025; 93005; 93010; 96361; 96374; 99284; J1885

== ENCOUNTER → 2023-06-30 13:37 | Outpatient (CLI) | payer OTHER, MEDICAID, SELFPAY ==
[2021-03-26 00:30] VITALS: BMI 33.8
[2021-03-30 12:53] VITALS: PULSE 77; RESP 18
[2021-03-30 13:26] VITALS: O2SAT 93
[2023-06-30 14:58] LABS: Hemoglobin A1C% w Est Avg Glu 5.3 % (4.0-6.0)
== END ==
PROVIDERS: PCP Naturopath; Referring Provider Obstetrics & Gynecology; Visit Provider Obstetrics & Gynecology
DX: R35.0 Frequency of micturition (principal); N39.46 Mixed incontinence
CPT/HCPCS: 36415; 81002; 83036; 87086

== ENCOUNTER → 2023-12-24 11:49 | Outpatient (CLI) | payer OTHER, MEDICAID, SELFPAY ==
[2021-03-26 00:30] VITALS: BMI 33.8
[2021-03-30 12:53] VITALS: PULSE 77; RESP 18
[2021-03-30 13:26] VITALS: O2SAT 93
--- NOTE | 2023-12-24 | DI.RAD.S_ITS ---
PROCEDURE: XR CHEST 2V INDICATIONS: SHORT OF BREATH TECHNIQUE: 2 views of the chest were acquired. COMPARISON: [facility], CR, XR CHEST 2V, 04/07/2023, 19:13. [facility], CR, XR CHEST 2V, 05/11/2022, 12:20. FINDINGS: Surgical changes and devices: None. Lungs and pleura: Lungs are clear. No pleural effusions or pneumothorax. Mediastinum: Mediastinal contours are normal. Heart size is normal. Bones and chest wall: No suspicious bony abnormalities. Soft tissues appear unremarkable. IMPRESSION: No acute cardiopulmonary abnormality is seen. Dictated by: Jason Benson M.D. on 12/24/2023 at 13:25 Approved by: Jason Benson M.D. on 12/24/2023 at 13:25
--- NOTE | 2023-12-24 | DI.RAD.S_ITS ---
PROCEDURE: XR THORACIC SPINE 3V INDICATIONS: PAIN TECHNIQUE: 3 views of the thoracic spine were acquired. COMPARISON: None. FINDINGS: Bones: No fractures or dislocations. No suspicious bony lesions. 12 pairs of ribs are noted, and appear intact where visualized. Mild multilevel degenerative changes with intervertebral disc height loss, degenerative endplate changes and spurring. Soft tissues: No paravertebral stripe thickening. IMPRESSION: Mild degenerative changes of the thoracic spine. Dictated by: Jason Benson M.D. on 12/24/2023 at 13:24 Approved by: Jason Benson M.D. on 12/24/2023 at 13:24
== END ==
PROVIDERS: PCP Naturopath; Referring Provider Naturopath; Visit Provider Naturopath
DX: M47.814 Spondylosis without myelopathy or radiculopathy, thoracic region (principal); R06.02 Shortness of breath; M54.6 Pain in thoracic spine
CPT/HCPCS: 71046; 72072

== ENCOUNTER 2024-03-02 21:08 | Emergency (ER) | payer OTHER, MEDICAID, SELFPAY ==
[2021-03-26 00:30] VITALS: BMI 33.8
[2021-03-30 12:53] VITALS: PULSE 77; RESP 18
[2021-03-30 13:26] VITALS: O2SAT 93
[2024-03-02 21:15] VITALS: BP 176/96; PULSE 84; RESP 16; TEMP 36.8; O2SAT 97; BMI 35.9
[2024-03-02 22:26] VITALS: PULSE 82; O2SAT 95
[2024-03-02 22:30] VITALS: BP 151/84; PULSE 85; O2SAT 97
--- NOTE | 2024-03-02 22:44 | PC.NURSE ---
pt reports to the department with hypertension not controlled with her home medications. she is also endorsing a headache and blurred vision
[2024-03-02 23:00] VITALS: PULSE 88; RESP 10
[2024-03-02 23:05] VITALS: BP 144/85; PULSE 83; RESP 21
--- NOTE | 2024-03-02 23:10 | ED.GENADULT ---
HPI - General Adult General Chief complaint: Hypertension Stated complaint: HBP Time Seen by Provider: 03/02/24 22:24 Source: patient Mode of arrival: Ambulatory History of Present Illness HPI narrative: 53-year-old female presents by private vehicle from home for elevated blood pressure at home. Patient states that her blood pressure is normally 115-125 systolic, however today it was as high as 160 systolic. She took her usual blood pressure medications as well as an amlodipine, but her blood pressure continued to remain elevated and so she decided to present for evaluation. Throughout the day patient noticed a generalized headache and slightly blurred vision, however these have improved. Patient also states that for the last 3 days she was felt pain from her left knee down to her left foot on the side. Denies OCP use, denies recent travel, denies history of blood clots, denies swelling. Related Data Home Medications Medication Instructions Recorded Confirmed losartan 100 mg tablet 100 mg PO DAILY 11/27/22 08/02/23 amlodipine 2.5 mg tablet 2.5 mg PO DAILY PRN 06/30/23 08/02/23 Previous Rx's Medication Instructions Recorded albuterol sulfate 90 mcg/actuation 2 puff inhalation Q4-6H PRN 03/11/19 aerosol inhaler shortness of breath or wheezing #8.5 grams albuterol sulfate 2.5 mg/3 mL 2.5 mg (3 mL) inhalation QID PRN 04/07/23 (0.083 %) solution for nebulization bronchospasm #75 mL oxybutynin chloride 10 mg 10 mg PO DAILY #30 tabs 06/30/23 tablet,extended release 24 hr Allergies Allergy/AdvReac Type Severity Reaction Status Date / Time chocolate flavor Allergy Unknown Verified 08/02/23 11:06 [CHOCOLATE FLAVOR] adhesive tape [ADHESIVE TAPE] AdvReac Intermediate Verified 08/02/23 11:06 latex [LATEX] AdvReac Intermediate Verified 08/02/23 11:06 Review of Systems Review of Systems Narrative: See HPI Patient History Medical History History of frequent headaches Heavy menstrual period Frequent UTI Surgical History History of hysterectomy Anesthesia History of removal of cyst Status post delivery (~1989) Status post tubal ligation (~1994) Family History Father Age: 85 Cancer Hypertension Mother Age: 81 Cancer Hypertension High cholesterol Grandfather Cancer Grandmother Heart disease Social History household members: spouse Smoking Status: Never smoker alcohol intake: current Smoking Status: Never smoker alcohol intake frequency: holidays/special occasions only Substance Use Type: does not use Exam Initial Vital Signs Initial Vital Signs: Vital Signs Temperature 98.3 F 03/02/24 21:15 Pulse Rate 84 03/02/24 21:15 Respiratory Rate 16 03/02/24 21:15 Blood Pressure 176/96 H 03/02/24 21:15 Pulse Oximetry 97 03/02/24 21:15 Oxygen Delivery Method Room Air 03/02/24 21:15 Const: Awake, alert, no acute distress, nontoxic appearing Cardiac: regular rate, regular rhythm RESP: unlabored, clear bilaterally, no wheezing GI: Soft, nontender, nondistended, no rebound, no guarding MSK: Atraumatic, full range of motion, pulses equal Skin: Warm, Dry, intact, no rashes Neuro: AO x3, CN II-XII grossly intact, moves all extremities Course Orders Ordered: ED Orders 03/02/24 23:17 CBC Auto Diff [Complete Blood Count AUTO DIFF] Stat CMP [Comprehensive Metabolic Panel] Stat D Dimer Stat Vital Signs Vital signs: Vital Signs - 8 hr 03/02/24 22:26 03/02/24 22:30 03/02/24 22:30 Pulse Rate 82 85 Respiratory Rate Blood Pressure 151/84 H Pulse Oximetry 95 97 03/02/24 23:00 03/02/24 23:05 03/02/24 23:05 Pulse Rate 88 83 Respiratory Rate 10 L 21 Blood Pressure 144/85 H Pulse Oximetry 03/02/24 23:33 03/03/24 00:00 Pulse Rate 77 66 Respiratory Rate 25 H 18 Blood Pressure Pulse Oximetry Medical Decision Making Lab Data 03/02/24 23:17 03/02/24 23:17 Labs: Lab Results 03/02/24 Range/Units 23:17 WBC 8.4 (4.5-11.0) X10^3/uL RBC 4.38 (4.0-5.2) X10^6/uL Hgb 12.9 (12.0-16.0) g/dL Hct 38.0 (36-46) % MCV 86.9 (80-100) fL MCH 29.5 (26-34) PG MCHC 34.0 (30-36) % RDW 13.4 (11.6-14.8) % Plt Count 339 (150-400) X10^3/uL Neut % (Auto) 49.8 L (50-75) % Lymph % (Auto) 40.4 H (25-40) % [place] % (Auto) 6.2 (3-14) % Eos % (Auto) 3.0 (2-4) % Baso % (Auto) 0.6 (0-2) % Neut # (Auto) 4200 (0158-9832) /uL Lymph # (Auto) 3400 (5045-5041) /uL [place] # (Auto) 500 (0-900) /uL Eos # (Auto) 300 (0-450) /uL Baso # (Auto) 100 (0-100) /uL D-Dimer 407 (<500) ng/ml Sodium 139 (137-145) mmol/L Potassium 4.3 (3.4-5.1) mmol/L Chloride 105 (98-107) mmol/L Carbon Dioxide 30 (22-32) mmol/L BUN 16 (7-17) mg/dL Creatinine 0.78 (0.52-1.04) mg/dL Estimated GFR > 60 (>60) mL/min BUN/Creatinine Ratio 20.5 (6-22) Glucose 122 H (70-100) mg/dL Calcium 8.9 (8.4-10.2) mg/dL Total Bilirubin 0.7 (0.2-1.3) mg/dL AST 23 (14-36) IU/L ALT 22 (<35) IU/L Alkaline Phosphatase 66 (38-126) U/L Total Protein 7.3 (6.3-8.2) g/dL Albumin 4.3 (3.5-5.0) g/dL Globulin 3.0 (1.7-4.1) g/dL Albumin/Globulin Ratio 1.4 (1.0-2.8) Urine Dip Bedside Urine Glucose Negative Bedside Urine Bilirubin - Negative Bedside Urine Ketone - Negative Urine Specific [place] 1.015 Bedside Urine Occult Blood - Negative Bedside Urine pH 7.5 Bedside Urine Protein - Negative Bedside Urine Urobilinogen - Negative Bedside Urine Nitrite - Negative Bedside Urine Leukocytes - Negative Esterase Point of care testing: Urine Dip Bedside Urine Glucose Negative Bedside Urine Bilirubin - Negative Bedside Urine Ketone - Negative Urine Specific [place] 1.015 Bedside Urine Occult Blood - Negative Bedside Urine pH 7.5 Bedside Urine Protein - Negative Bedside Urine Urobilinogen - Negative Bedside Urine Nitrite - Negative Bedside Urine Leukocytes - Negative Esterase MDM Narrative Medical decision making narrative: Hypertension, blood pressure higher than normal at home. Maximum blood pressure at home as high as 160. Patient denying concerning symptoms such as worst headache of life, chest pain, shortness of breath. Low suspicion for DVT for lower extremity pain. There was no swelling, exam is unremarkable. After sitting in ED bed patient's blood pressure already began to decrease without any interventions. Laboratory work shows no signs of acute end-organ damage. D-dimer is negative, indicating low probability of DVT in patient with otherwise no known risk factors. Patient counseled on lab results, recommended she continue her current regimen of blood pressure medications and keep a blood pressure diary to bring to her next primary care doctor's appointment. She was instructed that she may take an amlodipine if her blood pressure is elevated that day. Discharge Plan Departure Patient Disposition: Home Clinical Impression: Hypertension Instructions: DI for High Blood Pressure Activity Restrictions/Additional Instructions: Your laboratory work today was normal. There was no evidence of organ damage from your blood pressure. Continue your current medication regimen as prescribed by your primary care doctor. Keep a blood pressure journal and bring this to your primary care doctor appointment. Prescriptions: No Action amlodipine 2.5 mg tablet 2.5 mg PO DAILY PRN oxybutynin chloride 10 mg tablet extended release 24hr 10 mg PO DAILY Qty: 30 12RF albuterol sulfate 2.5 mg /3 mL (0.083 %) solution for nebulization 2.5 mg inhalation QID PRN (Reason: bronchospasm) Qty: 75 0RF albuterol sulfate 90 mcg/actuation HFA aerosol inhaler 2 puff INHALATION Q4-6H PRN (Reason: shortness of breath or wheezing) Qty: 8.5 0RF losartan 100 mg tablet 100 mg PO DAILY Patient Comments: TAKE 1/2 TABLET BY MOUTH TWICE DAILY Referrals: April Cee ND [Primary Care Provider] - Stand Alone Forms: Patient Portal/API
[2024-03-02 23:26] LABS: Add Manual Diff / Slide Review NO; Basophils Absolute Auto 100 /uL (0-100); Basophils Percent Auto 0.6 % (0-2); Eosinophils Absolute Auto 300 /uL (0-450); Hemoglobin 12.9 g/dL (12.0-16.0); Lymphocytes Absolute Auto 3400 /uL (1100-4500); Lymphocytes Percent Auto 40.4 % (25-40); Mean Corpuscular Hemoglobin 29.5 PG (26-34); Mean Corpuscular Volume 86.9 fL (80-100); Monocytes Absolute Auto 500 /uL (0-900); Monocytes Percent Auto 6.2 % (3-14); Neutrophils Absolute Auto 4200 /uL (1500-7000); Neutrophils Percent Auto 49.8 % (50-75); Platelet Count 339 X10^3/uL (150-400); Red Blood Cell Count 4.38 X10^6/uL (4.0-5.2); Red Cell Distribution Width 13.4 % (11.6-14.8); White Blood Cell Count 8.4 X10^3/uL (4.5-11.0)
[2024-03-02 23:33] VITALS: PULSE 77; RESP 25
[2024-03-02 23:38] LABS: Alanine Aminotransferase 22 IU/L (<35); Albumin 4.3 g/dL (3.5-5.0); Albumin Globulin Ratio 1.4 (1.0-2.8); Alkaline Phosphatase 66 U/L (38-126); Aspartate Aminotransferase 23 IU/L (14-36); BUN Creatinine Ratio 20.5 (6-22); Bilirubin Total 0.7 mg/dL (0.2-1.3); Blood Urea Nitrogen 16 mg/dL (7-17); Calcium 8.9 mg/dL (8.4-10.2); Carbon Dioxide 30 mmol/L (22-32); Chloride 105 mmol/L (98-107); Estimated Glomerular Filt Rate > 60 mL/min (>60); Glucose 122 mg/dL (70-100); HEMOLYSIS 20 (0-50); Potassium 4.3 mmol/L (3.4-5.1); Sodium 139 mmol/L (137-145); Total Protein 7.3 g/dL (6.3-8.2)
[2024-03-02 23:39] LABS: D Dimer 407 ng/ml (<500)
[2024-03-03] VITALS: PULSE 66; RESP 18
== END 2024-03-03 00:24 | disposition home or self-care (01) ==
PROVIDERS: Emergency Provider Emergency Medicine; PCP Naturopath
DX: I10 Essential (primary) hypertension (principal)
CPT/HCPCS: 36415; 80053; 81003; 85025; 85379; 99283

== ENCOUNTER 2024-07-30 13:03 | Emergency (ER) | payer OTHER, MEDICAID, SELFPAY ==
[2021-03-26 00:30] VITALS: BMI 33.8
[2021-03-30 12:53] VITALS: PULSE 77; RESP 18
[2021-03-30 13:26] VITALS: O2SAT 93
[2024-07-30] VITALS (24 sets, daily range): BP systolic 106–173; BP diastolic 71–103; PULSE 64–90; RESP 8–27; TEMP 36.1; O2SAT 91–99; BMI 33.8
--- NOTE | 2024-07-30 13:17 | DI.RAD.S_ITS ---
PROCEDURE: XR CHEST 1V INDICATIONS: chest pain TECHNIQUE: One view of the chest was acquired. COMPARISON: .[facility], CR, XR CHEST 2V, 04/07/2023, 19:13. formerly [facility], CR, XR CHEST 2V, 12/24/2023, 11:56. FINDINGS: Surgical changes and devices: None. Lungs and pleura: Low lung volumes are noted. This causes a crowded appearance to the lung markings and limits evaluation. Mild generalized interstitial prominence can be seen. No focal infiltrates are seen. No large pneumothorax or large pleural effusions are seen. Mediastinum: Mediastinal contours appear normal. Heart size is normal. Bones and chest wall: No suspicious bony lesions. Overlying soft tissues appear unremarkable. IMPRESSION: Low lung volumes are noted. There is a mild degree of interstitial prominence, which is suspected to be related to the low lung volumes, although differential diagnosis includes a mild degree of pulmonary edema. Dictated by: Andrae Strange M.D. on 07/30/2024 at 13:03 Approved by: Andrae Strange M.D. on 07/30/2024 at 13:04
[2024-07-30 13:39] LABS: Add Manual Diff / Slide Review NO; Basophils Absolute Auto 0 /uL (0-100); Basophils Percent Auto 0.6 % (0-2); Eosinophils Absolute Auto 100 /uL (0-450); Eosinophils Percent Auto 1.6 % (2-4); Hematocrit 42.5 % (36-46); Hemoglobin 14.2 g/dL (12.0-16.0); Lymphocytes Absolute Auto 2100 /uL (1100-4500); Lymphocytes Percent Auto 27.9 % (25-40); Mean Corpuscular HGB Conc 33.4 % (30-36); Mean Corpuscular Hemoglobin 29.2 PG (26-34); Mean Corpuscular Volume 87.5 fL (80-100); Monocytes Absolute Auto 400 /uL (0-900); Monocytes Percent Auto 5.1 % (3-14); Neutrophils Absolute Auto 4800 /uL (1500-7000); Neutrophils Percent Auto 64.8 % (50-75); Platelet Count 349 X10^3/uL (150-400); Red Blood Cell Count 4.85 X10^6/uL (4.0-5.2); Red Cell Distribution Width 13.5 % (11.6-14.8); White Blood Cell Count 7.5 X10^3/uL (4.5-11.0)
--- NOTE | 2024-07-30 13:42 | EKG_ITS ---
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
[2024-07-30 13:43] LABS: Prothrombin Time 11.6 SECONDS (9.4-12.5)
[2024-07-30 13:46] LABS: PTT Partial Thromboplastin Tim 39 SECONDS (25.1-36.5)
[2024-07-30 13:47] LABS: Alanine Aminotransferase 16 IU/L (<35); Albumin 4.6 g/dL (3.5-5.0); Albumin Globulin Ratio 1.4 (1.0-2.8); Alkaline Phosphatase 64 U/L (38-126); Aspartate Aminotransferase 19 IU/L (14-36); BUN Creatinine Ratio 13.1 (6-22); Bilirubin Total 0.9 mg/dL (0.2-1.3); Blood Urea Nitrogen 11 mg/dL (7-17); Calcium 9.5 mg/dL (8.4-10.2); Carbon Dioxide 28 mmol/L (22-32); Chloride 104 mmol/L (98-107); Creatine Kinase 54 U/L (30-135); Estimated Glomerular Filt Rate > 60 mL/min (>60); Globulin 3.4 g/dL (1.7-4.1); Glucose 92 mg/dL (70-100); HEMOLYSIS < 15 (0-50); Lipase 116 U/L (23-300); Potassium 3.9 mmol/L (3.4-5.1); Sodium 138 mmol/L (137-145)
--- NOTE | 2024-07-30 13:47 | PC.NURSE ---
Pt reports intermittent, throbbing headache for past 1 week that began while prepping/fasting for a colonoscopy. She also has pain that raidates down her left neck and into her left arm. Reports her blood pressure has been elevated at times with systolic as high as 190. Has taken some of her BP meds. Current blood pressure is 125/79. She is alert and oriented. Encouraged to call if any needs or change in symptoms. Call light within reach.
[2024-07-30 13:59] LABS: NT-proBNP (BNP-Adult 18+) < 20 pg/mL (<125); Troponin I < 0.012 ng/mL (0.01-0.034)
--- NOTE | 2024-07-30 16:46 | DI.CT.S_ITS ---
PROCEDURE: CT HEAD/BRAIN WO CON INDICATIONS: Headache with elevated blood pressure TECHNIQUE: Noncontrast 4.5 mm thick angled axial sections acquired from the foramen magnum to the vertex, with coronal and sagittal reformats. For radiation dose reduction, the following was used: automated exposure control, adjustment of mA and/or kV according to patient size. COMPARISON: [facility], , XR CHEST 1V, 07/30/2024, 13:25. FINDINGS: Image quality: Mild streak artifact can be seen through the skull base. CSF spaces: Basal cisterns are patent. No extra-axial fluid collections. Ventricles are normal in size and shape. Brain: No midline shift. No intracranial masses or hemorrhage. Robertson-white matter interface is normal. Skull and face: Calvarium and visualized facial bones are intact, without suspicious lesions. Sinuses: Visualized sinuses and mastoids are clear. IMPRESSION: No acute intracranial hemorrhage is seen. No acute intracranial pathology. Dictated by: Andrae Strange M.D. on 07/30/2024 at 16:08 Approved by: Andrae Strnage M.D. on 07/30/2024 at 16:08
[2024-07-30] MEDS: MORPHINE 2 MG/ML INJ IV (17:52)
--- NOTE | 2024-07-30 19:13 | ED.HA ---
HPI - Headache General Chief Complaint: Headache Stated Complaint: HBP, left arm px, headache Time Seen by Provider: 07/30/24 13:47 History of Present Illness HPI Narrative: 53-year-old woman with a history of hypertension for which she takes losartan she does have a prescription for amlodipine but typically numbers are low enough that she does not take this. She does not have a history of migraine headache. No history of trauma who comes in today complaining that she has had a headache intermittently all week bitemporal and extending into the occipital area. She also complains of left arm and shoulder pain radiating down the arm to approximately be elbow. She does not relate that this is positional, or associated with exertion. It does not necessarily improve with rest. She notes she has had blood pressure is high as 199/120 in the last 24 hours. This is associated with headache and it is unclear whether the headache is elevating the blood pressure or vice versa. She has not been vomiting, there have been no weakness or paresthesia in the lower upper extremities. The left shoulder pain that radiates into the upper portion of the left arm is not related to position and not related to exertion. It does seem to be related to blood pressure and as blood pressure lowers that pain resolves. She has no fever, cough or suggestion of acute infectious etiology, no abdominal pain urinary symptoms or flank pain Related Data Home Medications Medication Instructions Recorded Confirmed losartan 100 mg tablet 100 mg PO DAILY 11/27/22 08/02/23 amlodipine 2.5 mg tablet 2.5 mg PO DAILY PRN 06/30/23 08/02/23 Previous Rx's Medication Instructions Recorded albuterol sulfate 90 mcg/actuation 2 puff inhalation Q4-6H PRN 03/11/19 aerosol inhaler shortness of breath or wheezing #8.5 grams albuterol sulfate 2.5 mg/3 mL 2.5 mg (3 mL) inhalation QID PRN 04/07/23 (0.083 %) solution for nebulization bronchospasm #75 mL oxybutynin chloride 10 mg 10 mg PO DAILY #30 tabs 06/30/23 tablet,extended release 24 hr Allergies Allergy/AdvReac Type Severity Reaction Status Date / Time chocolate flavor Allergy Unknown Verified 08/02/23 11:06 [CHOCOLATE FLAVOR] adhesive tape [ADHESIVE TAPE] AdvReac Intermediate Verified 08/02/23 11:06 latex [LATEX] AdvReac Intermediate Verified 08/02/23 11:06 Review of Systems Review of Systems Narrative: Pertinent positive and negative findings as per HPI Patient History Medical History History of frequent headaches Heavy menstrual period Frequent UTI Surgical History History of hysterectomy Anesthesia History of removal of cyst Status post delivery (~1989) Status post tubal ligation (~1994) Family History Father Age: 85 Cancer Hypertension Mother Age: 81 Cancer Hypertension High cholesterol Grandfather Cancer Grandmother Heart disease Social History household members: spouse Smoking Status: Never smoker alcohol intake: current Smoking Status: Never smoker alcohol intake frequency: holidays/special occasions only Substance Use Type: does not use Exam Initial Vital Signs Initial Vital Signs: Vital Signs Temperature 97 F L 07/30/24 13:10 Pulse Rate 82 07/30/24 13:10 Respiratory Rate 18 07/30/24 13:10 Blood Pressure 126/86 07/30/24 13:10 Pulse Oximetry 99 07/30/24 13:10 Oxygen Delivery Method Room Air 07/30/24 13:10 General: Appears to be slightly uncomfortable but Able to give a complete and coherent history. Well-nourished well-developed HEENT: Moist mucous membranes, normal sclera with reactive pupils, Respiratory: Lungs are clear to auscultation, no wheezing no rales no rhonchi. Full and symmetrical air movement Cardiac: Regular rate and rhythm no murmurs no bruits Abdomen: Soft, nontender, good bowel tones, no flank pain Skin: Warm and dry, no rashes Neurologic: Grossly neurologically intact with no obvious asymmetries or abnormalities Extremities: No trauma, well perfused Psych: Cooperative, appropriate insight and affect Course Orders Ordered: ED Orders 07/30/24 13:17 XR chest 1V Stat EKG-12 Lead Stat 07/30/24 13:25 Complete Blood Count AUTO DIFF Stat Comprehensive Metabolic Panel Stat Lipase Stat Magnesium Stat NT-proBNP (BNP-Adult 18+) Stat PTT Partial Thromboplastin Juan Stat Prothrombin Time INR Stat Troponin & CK Cardiac Panel Stat 07/30/24 16:46 CT head/brain wo con Stat Discontinued Medications Morphine Sulfate (Morphine 2 Mg/Ml Inj) 2 mg IV NOW ONE Stop: 07/30/24 16:47 Last Admin: 07/30/24 17:52 Dose: 2 mg Documented By: NAVEED Vital Signs Vital signs: Vital Signs - 8 hr 07/30/24 13:10 07/30/24 13:31 07/30/24 13:32 Temperature 97 F L Pulse Rate 82 80 Respiratory Rate 18 Blood Pressure 126/86 125/79 Pulse Oximetry 99 95 Oxygen Delivery Method Room Air 07/30/24 13:32 07/30/24 14:00 07/30/24 14:00 Temperature Pulse Rate 87 72 Respiratory Rate 13 Blood Pressure 130/74 Pulse Oximetry 95 91 Oxygen Delivery Method 07/30/24 14:30 07/30/24 14:30 07/30/24 15:00 Temperature Pulse Rate 64 73 Respiratory Rate 12 12 Blood Pressure 132/73 Pulse Oximetry 91 92 Oxygen Delivery Method 07/30/24 15:00 07/30/24 15:30 07/30/24 15:30 Temperature Pulse Rate 66 Respiratory Rate 13 Blood Pressure 125/77 106/71 Pulse Oximetry 93 Oxygen Delivery Method 07/30/24 16:00 07/30/24 16:30 07/30/24 17:06 Temperature Pulse Rate 82 70 84 Respiratory Rate 21 11 L 27 H Blood Pressure Pulse Oximetry 96 94 Oxygen Delivery Method 07/30/24 17:30 07/30/24 17:56 07/30/24 17:56 Temperature Pulse Rate 71 83 Respiratory Rate 16 17 Blood Pressure 156/103 H Pulse Oximetry 93 95 Oxygen Delivery Method 07/30/24 18:00 07/30/24 18:01 07/30/24 18:01 Temperature Pulse Rate 79 80 Respiratory Rate 14 15 Blood Pressure 149/90 H Pulse Oximetry 95 94 Oxygen Delivery Method 07/30/24 18:15 07/30/24 18:15 07/30/24 18:30 Temperature Pulse Rate 70 84 Respiratory Rate 13 27 H Blood Pressure 142/87 H Pulse Oximetry 93 95 Oxygen Delivery Method 07/30/24 18:30 Temperature Pulse Rate Respiratory Rate Blood Pressure 144/92 H Pulse Oximetry Oxygen Delivery Method MDM - Headache Lab Data 07/30/24 13:25 07/30/24 13:25 Labs: Lab Results 07/30/24 Range/Units 13:25 WBC 7.5 (4.5-11.0) X10^3/uL RBC 4.85 (4.0-5.2) X10^6/uL Hgb 14.2 (12.0-16.0) g/dL Hct 42.5 (36-46) % MCV 87.5 (80-100) fL MCH 29.2 (26-34) PG MCHC 33.4 (30-36) % RDW 13.5 (11.6-14.8) % Plt Count 349 (150-400) X10^3/uL Neut % (Auto) 64.8 (50-75) % Lymph % (Auto) 27.9 (25-40) % [place] % (Auto) 5.1 (3-14) % Eos % (Auto) 1.6 L (2-4) % Baso % (Auto) 0.6 (0-2) % Neut # (Auto) 4800 (9879-4938) /uL Lymph # (Auto) 2100 (2722-4059) /uL [place] # (Auto) 400 (0-900) /uL Eos # (Auto) 100 (0-450) /uL Baso # (Auto) 0 (0-100) /uL PT 11.6 (9.4-12.5) SECONDS INR 1.0 (0.9-1.3) APTT 39 H (25.1-36.5) SECONDS Sodium 138 (137-145) mmol/L Potassium 3.9 (3.4-5.1) mmol/L Chloride 104 (98-107) mmol/L Carbon Dioxide 28 (22-32) mmol/L BUN 11 (7-17) mg/dL Creatinine 0.84 (0.52-1.04) mg/dL Estimated GFR > 60 (>60) mL/min BUN/Creatinine Ratio 13.1 (6-22) Glucose 92 (70-100) mg/dL Calcium 9.5 (8.4-10.2) mg/dL Magnesium 2.0 (1.6-2.3) mg/dL Total Bilirubin 0.9 (0.2-1.3) mg/dL AST 19 (14-36) IU/L ALT 16 (<35) IU/L Alkaline Phosphatase 64 (38-126) U/L Total Creatine Kinase 54 (30-135) U/L Troponin I < 0.012 (0.01-0.034) ng/mL NT-Pro-B Natriuret Pep < 20 (<125) pg/mL Total Protein 8.0 (6.3-8.2) g/dL Albumin 4.6 (3.5-5.0) g/dL Globulin 3.4 (1.7-4.1) g/dL Albumin/Globulin Ratio 1.4 (1.0-2.8) Lipase 116 (23-300) U/L MDM Narrative Medical decision making narrative: CC: Elevated blood pressure, headache for a week, left shoulder pain Complicating co-morbidities: Patient states she does not typically have headaches and does not have migraines however frequent headaches are listed on problem list. Hypertension Data collected from: patient Medical records reviewed: Looking through previous ER evaluation she has been seen for elevated blood pressures and headaches as noted today. Recent gynecology notes reviewed. There is hospitalization for COVID reviewed from March of 2021 Differential considered: Hypertensive crisis, complex migraine chronic causing pain and elevated blood pressure, acute coronary syndrome, infectious etiology Exam documented above, pertinent findings include: Exam is actually quite reassuring. She is new reproducible tenderness with manipulation of her head or cervical spine. Heart and lung exam are benign Lab Test results independently reviewed as above. Pertinent findings: CBC is reassuring with no evidence of acute leukocytosis Chemistries are entirely normal Initial troponin is reassuring. No evidence of congestive heart failure Independently reviewed EKG: EKG shows sinus rhythm at a rate of 70 with no acute ischemic changes, she does meet voltage criteria for LVH in looking at leads aVL consistent with her diagnosis of hypertension Imaging studies independently reviewed: Chest x-ray is unremarkable Because the headache has been present for a week and initially patient indicated she did not have frequent headaches, CT scan of the head was ordered and shows no acute intracranial pathology Treatments: 2 mg of morphine did not influence her headache. She was given Toradol, Inapsine and Benadryl Discussion: 53-year-old woman with head pain for the last week. Describes it as fairly musculoskeletal, so tender over the occiput that she is having trouble lying on her pillow. Blood pressure is also been elevated it is unclear in exactly how they are related. Blood pressure has come down nicely without additional treatment in the emergency department. There was no evidence of acute coronary syndrome, hypertensive crisis reasons for additional imaging blood work or hospitalization. Headache did seem to improve slightly with Toradol Benadryl and Inapsine. We will ask her to take her chlorthalidone and losartan regularly every morning and the amlodipine regularly in the evening and check blood pressures sometime mid day to see how they are running. She has a follow up appointment with her primary care physician coming up on the and I am asked her to keep that appointment. Questions are answered she is safe for Discharge Plan Departure Patient Disposition: Home Clinical Impression: Headache Qualifiers: Headache type: unspecified Headache chronicity pattern: acute headache Intractability: not intractable Qualified Code(s): R51.9 - Headache, unspecified High blood pressure Qualifiers: Hypertension type: primary hypertension Qualified Code(s): I10 - Essential (primary) hypertension Instructions: DI for Headache Activity Restrictions/Additional Instructions: Thank you for coming in today Your blood work was quite reassuring. There was no sign of stroke, heart attack or heart attack like syndrome. Your blood pressure has come down nicely in the emergency department without any additional intervention It is unclear whether the high blood pressure is causing your headaches or the pain from the headache is worsening your blood pressure. Both may in fact you contributing I did not find any evidence of intracranial bleeding tumors or abnormalities on your CT scan. There is no suggestion of significant infection or kidney/liver or electrolyte abnormality Regarding your blood pressure I am going to suggest that you take your losartan and chlorthalidone 1st thing in the morning. Take your amlodipine in the evening. I would recommend daily blood pressure checks mid day to review with your primary care physician. You do need to be seen by your primary care physician to discuss blood pressure You were given 2 mg of morphine, Toradol, Inapsine and Benadryl in the emergency department. This did help with the headache. If the headache continues again, please discuss this with your primary care provider. If you find that you are getting worse or develop any new symptoms, please feel free to return to the emergency department for further evaluation. Prescriptions: No Action amlodipine 2.5 mg tablet 2.5 mg PO DAILY PRN oxybutynin chloride 10 mg tablet extended release 24hr 10 mg PO DAILY Qty: 30 12RF albuterol sulfate 2.5 mg /3 mL (0.083 %) solution for nebulization 2.5 mg inhalation QID PRN (Reason: bronchospasm) Qty: 75 0RF albuterol sulfate 90 mcg/actuation HFA aerosol inhaler 2 puff INHALATION Q4-6H PRN (Reason: shortness of breath or wheezing) Qty: 8.5 0RF losartan 100 mg tablet 100 mg PO DAILY Patient Comments: TAKE 1/2 TABLET BY MOUTH TWICE DAILY Referrals: Sulema Manzano ND [Primary Care Provider] - Stand Alone Forms: Patient Portal/API
--- NOTE | 2024-07-30 19:29 | PC.NURSE ---
Pt ambulatory to restroom without difficulty or assistance.
[2024-07-30] MEDS: KETOROLAC 30 MG/ML VIAL 15 MG IV (19:34)
[2024-07-30] MEDS: diphenhydrAMINE 50 MG/ML VIAL IV (19:34)
[2024-07-30] MEDS: DROPERIDOL 5 MG/2 ML VIAL 0.625 MG IV (19:35)
--- NOTE | 2024-07-30 19:44 | PC.NURSE ---
Pt awake and alert lying in ED stretcher speaking with and on phone. No distress noted at this time. Pt remains connected to cardiac, blood pressure, pulse ox, and resp monitors with alarms on and audible. Call light within reach.
== END 2024-07-30 20:26 | disposition home or self-care (01) ==
PROVIDERS: Emergency Provider Emergency Medicine; PCP Naturopath
DX: I10 Essential (primary) hypertension (principal); R51.9 Headache, unspecified; M25.512 Pain in left shoulder
CPT/HCPCS: 70450; 71045; 80053; 82550; 83690; 83735; 83880; 84484; 85025; 85610; 85730; 93005; 96374; 96375; 99284; J1200; J1790; J1885; J2270